=== PATIENT | male | born 1940 | race Caucasian/White ===

== ENCOUNTER 2017-01-12 21:15 | Inpatient (IN) | payer MEDICARE, OTHER ==
[2017-01-12 21:52] LABS: CHLORIDE,CL 101 mmol/L (98-107); SODIUM,NA 138 mmol/L (136-145)
[2017-01-12] MEDS ORDERED: Sodium Chloride 0.9% 1,000 ML IV ONE (21:52)
--- NOTE | 2017-01-12 21:57 | EDM.PDOC ---
ED HPI ALTERED MENTAL STATUS - General Chief Complaint: Neurological Problem Stated Complaint: confusion Time Seen by Provider: 01/12/17 21:50 Source of Information: Reports: Family - History of Present Illness INITIAL COMMENTS - FREE TEXT/NARRATIVE: Patient was out working on a trailer while was in [place]. She returned home this evening but could not find him at house. She called him on cell phone and asked him where he was. He said he was "at home and lost his cell phone". This was despite the fact he answered her using his cell phone. She went out on the property and found him on his knees by the front of a trailer. No ladder. No sign of fall or trauma other than blood noted on right hand. denies patient has had any recent medication changes or illnesses. He does have diagnosis of Alzheimer's but per he is in early stages. He is normally oriented. Tonight he tells me it is 1969. He cannot remember where he is/age/ president/year/month or day. Blood sugar mid-200s on scene per ambulance. Temp was around 94-95 degrees when EMS crew arrived. /EMS crew described patient as sitting on knees on ground. Difficulty ambulating/poorer coordination. Asymmetry in pupils noted but patient has had surgery on right cornea. No focal one-sided weakness noted. No history of stroke per . Unable to perform ROS reliably with patient. - Related Data Allergies/ADRs: Allergies No Known Allergies Allergy (Verified 01/12/17 21:33) Home Meds: Home Meds Clopidogrel [Plavix] 75 mg PO 01/12/17 [History] Ezetimibe [Zetia] 01/12/17 [History] Insulin Glarg,Human.Rec.Analog [Lantus] 15 units SUBCUT BID 01/12/17 [History] Insulin Lispro [HumaLOG] 5 units SUBCUT TID 01/12/17 [History] Lisinopril [Prinivil] 30 mg PO DAILY 01/12/17 [History] Metoprolol Succinate [Toprol XL] 100 mg PO BID 01/12/17 [History] atorvaSTATin Calcium [Atorvastatin Calcium] 80 mg PO BEDTIME 01/12/17 [History] metFORMIN [Glucophage] 1,000 mg PO BIDAC 01/12/17 [History] Past Medical History Cardiovascular History: Reports: Bypass, CAD, High cholesterol, Hypertension, Stents Musculoskeletal History: Reports: Neck pain, chronic (DDD, has pins/rods in neck ), Osteoarthritis Neurological History: Reports: Alzheimers disease Endocrine/Metabolic History: Reports: Diabetes, type II Social & Family History - Family History Family Medical History: Unobtainable ED ROS GENERAL - Review of Systems Review Of Systems: Unable To Obtain (Patient says he "feels fine" and denies pain) - Physical Exam Exam: See Below Text/Narrative:: Rectal temp 99 degrees. Exam Limited By: Altered mental status General Appearance: alert, WD/WN, no apparent distress Eye Exam: bilateral eye: EOMI, other (Right pupil approximately 2-3mm larger in size than left but has history of surgery right eye and is always larger per . No signs of trauma/erythema/swelling/drainage with either eye. ) Ears: normal external exam, normal canal, hearing grossly normal, normal TMs Nose: normal inspection Throat/Mouth: Normal inspection, Normal lips, Normal oropharynx, Normal voice, No airway compromise Head Exam: atraumatic, normocephalic Neck: normal inspection, supple, non-tender, full range of motion Respiratory/Chest: no respiratory distress, lungs clear, normal breath sounds, no accessory muscle use, chest non-tender Cardiovascular: normal peripheral pulses, regular rate, rhythm, no edema, no murmur GI/Abdominal: normal bowel sounds, soft, non tender, no distention (Male) Exam: Other (No acute injuries/changes noted) Rectal (Males) Exam: Deferred Neuro Exam (Abbreviated): alert, normal reflexes, no motor/sensory deficits (no obvious deficits identified), inattentive, confused, memory loss recent events. No: abnormal reflexes DTR: 3+: bicep (R), bicep (L), patella (R), patella (L) Back Exam: normal inspection Extremities: normal range of motion, non-tender, normal capillary refill, other (laceration to 4th/5th fingers right hand) Psychiatric: normal affect, normal mood Skin Exam: Warm, Dry, Wound/incision (see above) EKG INTERPRETATION EKG Date: 01/12/17 Time: 22:02 Rhythm: NSR Rate (beats/min): 74 [place]: normal P-wave: present QRS: normal ST-T: normal QT: normal Comparison: NA - no prior EKG Course - Orders/Labs/Meds Orders: Active Orders 24 hr Category Date Time Status EKG Documentation Completion [RC] ASDIRECTED Care 01/12/17 21:51 Active Fingers Multiple Rt [CR] Stat Exams 01/12/17 23:03 Ordered Head wo Cont [CT] Routine Exams 01/12/17 09:30 Taken INR,PT,PROTHROMBIN TIME [COAG] Stat Lab 01/12/17 21:51 Ordered Insulin Lispro [HumaLOG] Med 01/13/17 22:08 Once 6 unit SUBCUT ONETIME ONE Metoprolol Succinate [Toprol XL] Med 01/12/17 23:04 Once 25 mg PO ONETIME ONE Sodium Chloride 0.9% [Normal Saline] 1,000 ml Med 01/12/17 21:52 Active IV .BOLUS Medication Orders Sodium Chloride (Normal Saline) 1,000 mls @ 50 mls/hr IV .BOLUS ONE Stop: 01/13/17 17:51 Insulin Human Lispro (Humalog) 6 unit SUBCUT ONETIME ONE PRN Reason: Protocol Stop: 01/13/17 22:09 Labs: Laboratory Tests 01/12/17 01/12/17 01/12/17 Range/Units 21:33 21:33 21:33 WBC 7.9 (4.0-10.2) K/uL RBC 4.56 (4.33-5.41) M/uL Hgb 14.1 (13.1-16.8) g/dL Hct 42.0 (39.0-49.0) % MCV 92.1 (84.0-98.0) fL MCH 30.9 (28.2-33.3) pg MCHC 33.6 (31.7-36.0) g/dL RDW 13.7 (11.2-14.1) % Plt Count 208 (150-350) K/uL Neut % (Auto) 83.2 H (45.0-80.0) % Lymph % (Auto) 9.9 L (10.0-50.0) % [place] % (Auto) 6.4 (2.0-14.0) % Eos % (Auto) 0.4 (0.0-5.0) % Baso % (Auto) 0.1 (0.0-2.0) % Neut # (Auto) 6.58 (1.40-7.00) K/uL Lymph # (Auto) 0.78 (0.50-3.50) K/uL [place] # (Auto) 0.51 (0.00-1.00) K/uL Eos # (Auto) 0.03 (0.00-0.50) K/uL Baso # (Auto) 0.01 (0.00-0.20) K/uL PT 11.4 (9.8-11.7) SEC INR 1.1 APTT 25.0 (23.5-30.0) SEC Sodium 138 (136-145) mmol/L Potassium 4.6 (3.5-5.1) mmol/L Chloride 101 (98-107) mmol/L Carbon Dioxide 26.3 (21.0-32.0) mmol/L BUN 20 H (7-18) mg/dL Creatinine 0.78 (0.51-1.17) mg/dL Est Cr Clr Drug Dosing TNP Estimated GFR (MDRD) > 60 mL/min Glucose 307 H* (74-106) mg/dL Calcium 9.2 (8.5-10.1) mg/dL Total Bilirubin 0.6 (0.2-1.0) mg/dL AST 20 (15-37) U/L ALT 30 (12-78) U/L Alkaline Phosphatase 76 (46-116) IU/L Creatine Kinase (26-308) U/L Creatine Kinase Index (0.0-2.5) % CK-MB (CK-2) (0.00-3.60) ng/mL Troponin I (0.000-0.056) ng/mL Total Protein 7.1 (6.4-8.2) g/dL Albumin 3.7 (3.4-5.0) g/dL Specimen Type Urine Color Urine Appearance Urine pH (5.0-9.0) Ur Specific [place] (1.005-1.030) Urine Protein (NEGATIVE) mg/dL Urine Glucose (UA) (NEGATIVE) mg/dL Urine Ketones (NEGATIVE) mg/dL Urine Occult Blood (NEGATIVE) Urine Nitrite (NEGATIVE) Urine Bilirubin (NEGATIVE) Urine Urobilinogen (0.2-1.0) E.U./dL Ur Leukocyte Esterase (NEGATIVE) Urine RBC /HPF Urine WBC /HPF Urine Bacteria (NONE TO FEW) /HPF 03/29/17 03/29/17 Range/Units 21:51 21:51 WBC (4.0-10.2) K/uL RBC (4.33-5.41) M/uL Hgb (13.1-16.8) g/dL Hct (39.0-49.0) % MCV (84.0-98.0) fL MCH (28.2-33.3) pg MCHC (31.7-36.0) g/dL RDW (11.2-14.1) % Plt Count (150-350) K/uL Neut % (Auto) (45.0-80.0) % Lymph % (Auto) (10.0-50.0) % [place] % (Auto) (2.0-14.0) % Eos % (Auto) (0.0-5.0) % Baso % (Auto) (0.0-2.0) % Neut # (Auto) (1.40-7.00) K/uL Lymph # (Auto) (0.50-3.50) K/uL [place] # (Auto) (0.00-1.00) K/uL Eos # (Auto) (0.00-0.50) K/uL Baso # (Auto) (0.00-0.20) K/uL PT (9.8-11.7) SEC INR APTT (23.5-30.0) SEC Sodium (136-145) mmol/L Potassium (3.5-5.1) mmol/L Chloride (98-107) mmol/L Carbon Dioxide (21.0-32.0) mmol/L BUN (7-18) mg/dL Creatinine (0.51-1.17) mg/dL Est Cr Clr Drug Dosing Estimated GFR (MDRD) mL/min Glucose (74-106) mg/dL Calcium (8.5-10.1) mg/dL Total Bilirubin (0.2-1.0) mg/dL AST (15-37) U/L ALT (12-78) U/L Alkaline Phosphatase (46-116) IU/L Creatine Kinase 205 (26-308) U/L Creatine Kinase Index 2.4 (0.0-2.5) % CK-MB (CK-2) 4.90 H* (0.00-3.60) ng/mL Troponin I 0.014 (0.000-0.056) ng/mL Total Protein (6.4-8.2) g/dL Albumin (3.4-5.0) g/dL Specimen Type [place] Urine Color Yellow Urine Appearance Clear Urine pH 5.5 (5.0-9.0) Ur Specific [place] 1.025 (1.005-1.030) Urine Protein 100 H (NEGATIVE) mg/dL Urine Glucose (UA) 500 H (NEGATIVE) mg/dL Urine Ketones 15 H (NEGATIVE) mg/dL Urine Occult Blood Small H (NEGATIVE) Urine Nitrite Negative (NEGATIVE) Urine Bilirubin Negative (NEGATIVE) Urine Urobilinogen 1.0 (0.2-1.0) E.U./dL Ur Leukocyte Esterase Negative (NEGATIVE) Urine RBC 5-10 H /HPF Urine WBC 0-5 /HPF Urine Bacteria Rare (NONE TO FEW) /HPF Meds: Medications Generic Name Dose Route Start Last Admin Trade Name Freq PRN Reason Stop Dose Admin Sodium Chloride 1,000 mls @ 50 mls/hr 01/12/17 21:52 Normal Saline IV 01/13/17 17:51 .BOLUS ONE Insulin Human Lispro 6 unit 01/13/17 22:08 Humalog SUBCUT 01/13/17 22:09 ONETIME ONE Protocol - Radiology Interpretation Free Text/Narrative:: CT of head read as negative per radiology for acute bleed/changes 10:12pm. 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 - Re-Assessments/Exams Free Text/Narrative Re-Assessment/Exam: 01/12/17 23:11 Patient remained confused. Did eventually recognize and remember her name. Discussed patient with , hospitalist, at [facility]. At this time there are no focal neuro changes/one-sided weakness noted, CT of head shows no acute changes. Uncertain what is causing confusion. Given the lacerations of fingers of right hand, other trauma such as concussion may have occurred. No obvious bruising or trauma noted anywhere else however. Patient may also be having acute exacerbation of Alzheimer's. Labs overall unremarkable except for elevated glucose and CKMB. UA normal. Dr. Wallace recommended hospitalizing patient here and observing for changes. 01/12/17 23:19 dressings applied to 4th and 5th fingers. Uncertain how long lacerations present. gone since 6am this morning. Departure - Departure Time of Disposition: 23:18 Disposition: Admitted As Inpatient 65 Clinical Impression: Acute on chronic alteration in mental status, Laceration of right little finger , Laceration of right ring finger Forms: ED Department Discharge - Problem List & Annotations (1) Alzheimer's dementia SNOMED Code(s): 16703609 Code(s): G30.9 - ALZHEIMER'S DISEASE, UNSPECIFIED Status: Chronic Priority: Medium Current Visit: Yes Qualifiers: Alzheimer's disease onset: unspecified onset Dementia behavioral disturbance: without behavioral disturbance Qualified Code(s): G30.9 - Alzheimer's disease, unspecified; F02.80 - Dementia in other diseases classified elsewhere without behavioral disturbance (2) Hypertension SNOMED Code(s): 26323025 Code(s): I10 - ESSENTIAL (PRIMARY) HYPERTENSION Status: Chronic Priority : Medium Current Visit: Yes (3) Type 2 diabetes mellitus SNOMED Code(s): 23295438 Code(s): E11.9 - TYPE 2 DIABETES MELLITUS WITHOUT COMPLICATIONS Status: Chronic Priority: Low Current Visit: Yes (4) High cholesterol SNOMED Code(s): 14525178 Code(s): E78.00 - PURE HYPERCHOLESTEROLEMIA, UNSPECIFIED Status: Acute Current Visit: Yes (5) CAD (coronary artery disease) SNOMED Code(s): 66673456 Code(s): I25.10 - ATHSCL HEART DISEASE OF [place] CORONARY ARTERY W/O ANG PCTRS Status: Chronic Priority: Low Current Visit: No (6) Acute on chronic alteration in mental status SNOMED Code(s): 213717197 Code(s): R41.82 - ALTERED MENTAL STATUS, UNSPECIFIED Status: Acute Priority: High Current Visit: Yes Annotation/Comment:: Uncertain etiology (7) Laceration of right little finger SNOMED Code(s): 283429848, 198535810 Code(s): S61.216A - LAC W/O FB OF R LITTLE FINGER W/O DAMAGE TO NAIL, INIT Status: Acute Priority: Medium Current Visit: Yes (8) Laceration of right ring finger SNOMED Code(s): 860712806 Code(s): S61.214A - LACERATION W/O FB OF R RNG FNGR W/O DAMAGE TO NAIL, INIT Status: Acute Priority: Medium Current Visit: Yes - Problem List Review Problem List Initiated/Reviewed/Updated: Yes - My Orders Last 24 Hours: My Active Orders 01/12/17 09:30 Head wo Cont [CT] Routine 01/12/17 21:51 EKG Documentation Completion [RC] ASDIRECTED INR,PT,PROTHROMBIN TIME [COAG] Stat 01/12/17 21:52 Sodium Chloride 0.9% [Normal Saline] 1,000 ml IV .BOLUS 01/12/17 23:03 Fingers Multiple Rt [CR] Stat 01/12/17 23:04 Metoprolol Succinate [Toprol XL] 25 mg PO ONETIME ONE 01/13/17 22:08 Insulin Lispro [HumaLOG] 6 unit SUBCUT ONETIME ONE - Assessment/Plan Admission H&P: Please use this note as an admission H&P Last 24 Hours: My Active Orders 01/12/17 09:30 Head wo Cont [CT] Routine 01/12/17 21:51 EKG Documentation Completion [RC] ASDIRECTED INR,PT,PROTHROMBIN TIME [COAG] Stat 01/12/17 21:52 Sodium Chloride 0.9% [Normal Saline] 1,000 ml IV .BOLUS 01/12/17 23:03 Fingers Multiple Rt [CR] Stat 01/12/17 23:04 Metoprolol Succinate [Toprol XL] 25 mg PO ONETIME ONE 01/13/17 22:08 Insulin Lispro [HumaLOG] 6 unit SUBCUT ONETIME ONE Assessment:: Acute mental status change today, unknown cause, in patient with history of diagnosis early Alzheimer's. Also lacerations right fingers. Cannot rule out concussion. Plan: Admit, observe, neuro checks.
[2017-01-12] MEDS ORDERED: Metoprolol Succinate 25 MG Tab.ER PO ONE (23:04)
[2017-01-12] MEDS ORDERED: Diphtheria,Pertussis(Acell),Tetanus Vaccine 0.5 ML SDV IM ONE (23:16)
[2017-01-12] MEDS ORDERED: Calcium Carbonate 500 MG Tab.Chew PO PRN (23:39)
[2017-01-12] MEDS ORDERED: Acetaminophen 325 MG Tab PO PRN (23:39)
[2017-01-12] MEDS ORDERED: Magnesium Hydroxide 400 MG/5 ML Susp 30 ML Cup PO PRN (23:39)
[2017-01-13] MEDS: Bacitracin/Neomycin/Polymyxin B Oint 0.9 GM U/D Packet TOP SCH ×2 (00:01→09:46)
[2017-01-13] MEDS: Insulin Aspart 100 Units/ML 3 ML Pen SUBCUT SCH ×5 (00:32→11:56)
[2017-01-13] MEDS ORDERED: Nitroglycerin 0.4 MG Tab.SL SL PRN (08:06)
[2017-01-13] MEDS ORDERED: Aspirin 81 MG Tab.EC PO SCH (08:15)
[2017-01-13] MEDS ORDERED: Lisinopril 10 MG Tab PO SCH (08:15)
[2017-01-13] MEDS ORDERED: Clopidogrel 75 MG Tab PO SCH (08:15)
[2017-01-13] MEDS ORDERED: Multivitamin Tab PO SCH (08:15)
[2017-01-13] MEDS ORDERED: Metoprolol Succinate 50 MG Tab.ER PO SCH (08:15)
[2017-01-13] MEDS ORDERED: Beta-Carotene (Vitamin A) w/Vitamin C & E plus Minerals Tab PO SCH (08:15)
[2017-01-13] MEDS ORDERED: Cholecalciferol (Vitamin D3) 1,000 Unit Tab PO SCH (08:15)
[2017-01-13] MEDS ORDERED: Formoterol/Mometasone 100-5 MCG 8.8 GM Inhaler IH SCH (08:15)
[2017-01-13 09:59] LABS: CHLORIDE,CL 104 mmol/L (98-107); SODIUM,NA 138 mmol/L (136-145)
--- NOTE | 2017-01-13 11:59 | PCM.DCSUM1 ---
Discharge Summary - Hospital Course Free Text/Narrative:: Patient is an extremely poor historian secondary to his Alzheimer's disease and current mental status HPI Initial Comments: See emergency room note/admission H&P Brief History: See the emergency room note/admission H&P - Discharge Data Discharge Date: 01/13/17 Discharge Disposition: DC/Tfer to Acute Hospital 02 Condition: Fair - Discharge Diagnosis/Problem(s) (1) Acute on chronic alteration in mental status SNOMED Code(s): 281352856 ICD Code: R41.82 - ALTERED MENTAL STATUS, UNSPECIFIED Status: Acute Priority: High Current Visit: Yes Problem Details: Uncertain etiology of patient's symptom, however possibility of head concussion and/or acute CVA. Based on review of emergency room note consulting physician did not feel that hospital transfer was warrented yesterday evening. Telephone consultation at 10 :50 a.m. this morning with Dr. Dee, hospitalist at [facility] in [place] , who does accept the patient for further treatment and evaluation, including probable MRA of the brain and cervical region. No further treatment recommendations given. No evidence of meningeal signs with stable moderately severe confusion in neurological checks, although the patient's previous mild to moderate anisocoria has almost completely resolved by my exam today. Review of noncontrast CT scan report of the head from yesterday does reveal apparent previous subacute infarctions. (2) CHF (congestive heart failure) SNOMED Code(s): 63949841 ICD Code: I50.9 - HEART FAILURE, UNSPECIFIED Status: Acute Priority: Medium Current Visit: Yes Onset Date: ~01/13/17 Problem Details: No apparent chest pain or anginal complaints with mildly elevated BNP and mild centralized CHF by today's chest x-ray. IV Lasix given prior to patient's discharge/transfer. Continue close followup by his accepting physicians. Patient is currently a NO CODE. A cardiology consultation and/or further cardiacworkup per accepting physicians. Consider serial cardiac enzymes, etc. Qualifiers: Congestive heart failure type: unspecified congestive heart failure type Congestive heart failure chronicity: acute Qualified Code(s): I50.9 - Heart failure, unspecified (3) CAD (coronary artery disease) SNOMED Code(s): 51391686 ICD Code: I25.10 - ATHSCL HEART DISEASE OF [place] CORONARY ARTERY W/O ANG PCTRS Status: Chronic Priority: High Current Visit: No Problem Details: No apparent recent anginal complaints, although the patient is a poor historian. Note mild CHF today. Mild BNP and d-dimer elevations with secondary troponin I changes with otherwise negative cardiac enzymes and EKG. Note status post CABGand PTCA/stent Qualifiers: Coronary Disease-Associated Artery/Lesion type: bypass graft [place] vs. transplanted heart: [place] heart Associated angina: without angina Qualified Code(s): I25.810 - Atherosclerosis of coronary artery bypass graft(s) without angina pectoris (4) Proteinuria SNOMED Code(s): 05045332 ICD Code: R80.9 - PROTEINURIA, UNSPECIFIED Status: Acute Priority: Medium Current Visit: Yes Onset Date: 01/12/17 Problem Details: Mild hematuria with additional moderate proteinuria possibly secondary to diabetic nephropathy. Urine specimen sent up for culture and sensitivity today. Note mild fever yesterday with no leukocytosis, etc. Possible UTI etiology to some of his confusion Qualifiers: Proteinuria type: unspecified Qualified Code(s): R80.9 - Proteinuria, unspecified (5) COPD (chronic obstructive pulmonary disease) SNOMED Code(s): 55722379 ICD Code: J44.9 - CHRONIC OBSTRUCTIVE PULMONARY DISEASE, UNSPECIFIED Status : Chronic Priority: Medium Current Visit: Yes Onset Date: ~01/13/17 Problem Details: COPD by today's chest x-ray. No apparent recent bronchitic- type symptoms with questionable right perihilar infiltrates today. No previous nebulizer, etc. therapy Qualifiers: COPD type: emphysema (6) High cholesterol SNOMED Code(s): 02541697 ICD Code: E78.00 - PURE HYPERCHOLESTEROLEMIA, UNSPECIFIED Status: Chronic Priority: Medium Current Visit: Yes Problem Details: Currently under therapy with lipid panel normal today (7) Laceration of right little finger SNOMED Code(s): 404032145, 425098930 ICD Code: S61.216A - LAC W/O FB OF R LITTLE FINGER W/O DAMAGE TO NAIL, INIT Status: Acute Priority: Medium Current Visit: Yes Onset Date: 01/12/17 Problem Details: DTaP given in the emergency room. Neosporin dressing (8) Laceration of right ring finger SNOMED Code(s): 940936201 ICD Code: S61.214A - LACERATION W/O FB OF R RNG FNGR W/O DAMAGE TO NAIL, INIT Status: Acute Priority: Medium Current Visit: Yes Onset Date: 01/13 Problem Details: as above (9) Alzheimer's dementia SNOMED Code(s): 92526623 ICD Code: G30.9 - ALZHEIMER'S DISEASE, UNSPECIFIED Status: Chronic Priority: Medium Current Visit: Yes Problem Details: Previously stable by his 's history however note significant decompensation of his mental status as above. TSH and vitamin B 12 levels are normal today Qualifiers: Alzheimer's disease onset: unspecified onset Dementia behavioral disturbance: without behavioral disturbance Qualified Code(s): G30.9 - Alzheimer's disease, unspecified; F02.80 - Dementia in other diseases classified elsewhere without behavioral disturbance (10) Hypertension SNOMED Code(s): 29676489 ICD Code: I10 - ESSENTIAL (PRIMARY) HYPERTENSION Status: Chronic Priority : Medium Current Visit: Yes Problem Details: stable during this hospitalization Qualifiers: Hypertension type: essential hypertension Qualified Code(s): I10 - Essential (primary) hypertension (11) Type 2 diabetes mellitus SNOMED Code(s): 37013006 ICD Code: E11.9 - TYPE 2 DIABETES MELLITUS WITHOUT COMPLICATIONS Status: Chronic Priority: Medium Current Visit: Yes Problem Details: 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 His diabetes his under extremely poor control with Accu-Cheks in effect. Significantly elevated glycosylated hemoglobin today Qualifiers: Diabetes mellitus complication status: with kidney complications Diabetes mellitus complication detail: with microalbuminuria Diabetes mellitus longterm insulin use: with longterm use Qualified Code(s): E11.29 - Type 2 diabetes mellitus with other diabetic kidney complication; R80.9 - Proteinuria, unspecified; Z79.4 - termite treater helper (current) use of insulin (12) Hypoalbuminemia SNOMED Code(s): 528591748 ICD Code: E88.09 - OTH DISORDERS OF PLASMA-PROTEIN METABOLISM, NEC Status: Chronic Priority: Medium Current Visit: Yes Onset Date: ~01/13/17 Problem Details: Consider high-protein Glucerna supplements as snacks - Patient Summary/Data Operative Procedure(s) Performed: none Complications: none Consults: Consultations 01/12/17 23:49 Consult to Occupational Therapy [OT Evaluation and Treatment] [CONS] Routine PT Evaluation and Treatment [CONS] Routine Labs Pending at D/C: none Recommended Follow-up Testing/Procedures: as above Planned Operative Procedure(s) after DC: none Hospital Course: Patient was admitted by [facility] physician to inpatient/acute care for further evaluation of his progressive confusion as above. No apparent chest pain or anginal complaints during this hospitalization. Unsuccessful transfer to [place] yesterday as above. Further evaluation secondary to possibility of acute CVA. Patient stable at time of transfer - Patient Instructions Diet: Diabetic Diet (heart healthy with fluid restriction and diverticulosis diet recommended) Fluid Restriction: 2000 mL Activity: As Tolerated Driving: Do Not Drive Showering/Bathing: No Showering Notify Provider of: Increased Pain, Nausea and/or Vomiting Other/Special Instructions: ambulance transfer with superintendent water and sewer systems accompaniment - Discharge Plan Home Medications: Home Meds Clopidogrel [Plavix] 75 mg PO DAILY 01/12/17 [History] Ezetimibe [Zetia] 10 mg PO BEDTIME 01/12/17 [History] Insulin Glarg,Human.Rec.Analog [Lantus] 15 units SUBCUT BID 01/12/17 [History] Insulin Lispro [HumaLOG] 5 units SUBCUT TID 01/12/17 [History] Lisinopril [Prinivil] 30 mg PO DAILY 01/12/17 [History] Metoprolol Succinate [Toprol XL] 100 mg PO DAILY 01/12/17 [History] atorvaSTATin Calcium [Atorvastatin Calcium] 40 mg PO BEDTIME 01/12/17 [History] metFORMIN [Glucophage] 1,000 mg PO BIDAC 01/12/17 [History] Aspirin [Halfprin] 81 mg PO DAILY 01/13/17 [History] Cholecalciferol (Vitamin D3) [Vitamin D3] 1,000 unit PO DAILY 01/13/17 [History] Lutein/Minerals/Vit A,C & E [Ocuvite] 1 tab PO DAILY 01/13/17 [History] Mometasone/Formoterol [Dulera 100-5 MCG] 2 puff INH BID 01/13/17 [History] Multivitamins [Tab-A-Tamiko] 1 tab PO DAILY 01/13/17 [History] Nitroglycerin [Nitrostat] 0.4 mg SL ASDIRECTED PRN 01/13/17 [History] Ubidecarenone [Co Q-10] 100 mg PO DAILY 01/13/17 [History] Forms: ED Department Discharge, Interfacility Transfer EMTALA Referrals: PCP,Unknown [Primary Care Provider] - - Discharge Summary/Plan Comment DC Time >30 min.: Yes (coordination of care) Discharge Summary/Plan Comment: as above. Some delay inpatient transfer without sequelae secondary to major trauma code in the emergency room. - General Info Admission Dx/Problem (Free Text: Confusion Subjective Update: The patient is an extremely poor historian, however no complaints at this time including pain, chest discomfort, etc. Functional Status: Reports: pain controlled, tolerating diet, ambulating, urinating. Denies: new symptoms Numeric/FACES Score: 0 - Review of Systems General: Reports: Fever (mild yesterday evening) Pulmonary: Reports: no symptoms Cardiovascular: Reports: No Symptoms Gastrointestinal: Reports: No symptoms Genitourinary: Reports: no symptoms Musculoskeletal: Reports: hand pain (secondary to lacerations) Skin: Reports: other (finger lacerations as above) Neurological: Reports: Confusion (persistent as above). Denies: Seizure Psychiatric: Reports: confusion. Denies: agitation, hallucinations - Patient Data Vitals - Most Recent: Last Vital Signs Temp 37.1 C 01/13/17 07:32 Pulse 68 01/13/17 09:47 Resp 16 01/13/17 07:32 BP 157/78 H 01/13/17 09:47 Pulse Ox 98 01/13/17 07:32 Vital Signs - 24 hr 01/12/17 01/13/17 01/13/17 23:41 00:00 00:26 Temperature [ Oral] Temperature [ 37.2 C Rectal] Pulse, 89 Peripheral Pulse, 92 Peripheral [ Right Pulse Oximetry] Respiratory 16 Rate Blood Pressure 174/77 H Blood Pressure 186/79 H [Right Upper Arm] O2 Sat by Pulse 100 100 Oximetry O2 Sat by Pulse 100 Oximetry [ Nasal Cannula] 01/13/17 01/13/17 01/13/17 05:56 07:32 09:47 Temperature [ 37.9 C 37.1 C Oral] Temperature [ Rectal] Pulse, 68 Peripheral Pulse, 68 68 Peripheral [ Right Pulse Oximetry] Respiratory 16 16 Rate Blood Pressure 157/78 H Blood Pressure 183/69 H 157/78 H [Right Upper Arm] O2 Sat by Pulse 100 98 Oximetry O2 Sat by Pulse Oximetry [ Nasal Cannula] 01/13/17 12:00 Temperature [ 36.8 C Oral] Temperature [ Rectal] Pulse, Peripheral Pulse, 64 Peripheral [ Right Pulse Oximetry] Respiratory 16 Rate Blood Pressure Blood Pressure 144/66 H [Right Upper Arm] O2 Sat by Pulse 95 Oximetry O2 Sat by Pulse Oximetry [ Nasal Cannula] Weight - Most Recent: 62.369 kg I&O - Last 24 hours: Intake & Output 01/12/17 01/13/17 01/13/17 22:59 06:59 14:59 Intake Total 285 240 Output Total 100 Balance 185 240 Imaging Impressions - Last 24 hrs: parking lot attendant shows normal sinus rhythm with heart rate in the 70s with no ectopy or arrhythmia Chest x-ray, PA and lateral, this morning showed evidence of moderate COPD changes with mild mostly centralized CHF and additional pulmonary hypertension with possible questionable borderline right perihilar infiltrates. Note status post medial sternotomy. Chest x-ray report from yesterday showed no acute changes CT scan of the head without contrast on 01/12/17 shows cerebral atrophy with remote infarcts in the right cerebellum and posterior right parietal area with no acute findings Lab Results - Last 24 hrs: Laboratory Results - last 24 hr 01/13/17 01/13/17 01/13/17 Range/Units 00:32 07:28 09:10 WBC (4.0-10.2) K/uL RBC (4.33-5.41) M/uL Hgb (13.1-16.8) g/dL Hct (39.0-49.0) % MCV (84.0-98.0) fL MCH (28.2-33.3) pg MCHC (31.7-36.0) g/dL RDW (11.2-14.1) % Plt Count (150-350) K/uL Neut % (Auto) (45.0-80.0) % Lymph % (Auto) (10.0-50.0) % Terrell % (Auto) (2.0-14.0) % Eos % (Auto) (0.0-5.0) % Baso % (Auto) (0.0-2.0) % Neut # (Auto) (1.40-7.00) K/uL Lymph # (Auto) (0.50-3.50) K/uL Terrell # (Auto) (0.00-1.00) K/uL Eos # (Auto) (0.00-0.50) K/uL Baso # (Auto) (0.00-0.20) K/uL D-Dimer, Quantitative (0-400) ng/mL Sodium 138 (136-145) mmol/L Potassium 4.3 (3.5-5.1) mmol/L Chloride 104 (98-107) mmol/L Carbon Dioxide 24.7 (21.0-32.0) mmol/L BUN 16 (7-18) mg/dL Creatinine 0.73 (0.51-1.17) mg/dL Est Cr Clr Drug Dosing 74.76 mL/min Estimated GFR (MDRD) > 60 mL/min Glucose 229 H (74-106) mg/dL POC Glucose 241 H 203 H (65-110) mg/dl Hemoglobin A1c (4.3-5.7) % Calcium 8.4 L (8.5-10.1) mg/dL Total Bilirubin 0.7 (0.2-1.0) mg/dL AST 18 (15-37) U/L ALT 23 (12-78) U/L Alkaline Phosphatase 62 (46-116) IU/L Creatine Kinase 131 (26-308) U/L Creatine Kinase Index 1.6 (0.0-2.5) % CK-MB (CK-2) 2.10 (0.00-3.60) ng/mL Troponin I 0.024 (0.000-0.056) ng/mL Hlf-P-Miitsvynfif Pept 865 H (0-125) pg/mL Total Protein 6.1 L (6.4-8.2) g/dL Albumin 2.9 L (3.4-5.0) g/dL Triglycerides (30-150) mg/dL Cholesterol (100-200) mg/dL LDL Cholesterol, Calc (0-100) mg/dL HDL Cholesterol (40-60) mg/dL Vitamin B12 453 (193-986) pg/mL TSH, Ultra Sensitive 0.422 (0.358-3.740) mIU/mL 01/13/17 01/13/17 01/13/17 Range/Units 09:10 09:10 09:10 WBC 7.7 (4.0-10.2) K/uL RBC 4.18 L (4.33-5.41) M/uL Hgb 12.9 L (13.1-16.8) g/dL Hct 38.5 L (39.0-49.0) % MCV 92.1 (84.0-98.0) fL MCH 30.9 (28.2-33.3) pg MCHC 33.5 (31.7-36.0) g/dL RDW 13.8 (11.2-14.1) % Plt Count 185 (150-350) K/uL Neut % (Auto) 70.9 (45.0-80.0) % Lymph % (Auto) 14.2 (10.0-50.0) % Terrell % (Auto) 14.2 H (2.0-14.0) % Eos % (Auto) 0.4 (0.0-5.0) % Baso % (Auto) 0.3 (0.0-2.0) % Neut # (Auto) 5.49 (1.40-7.00) K/uL Lymph # (Auto) 1.10 (0.50-3.50) K/uL Terrell # (Auto) 1.10 H (0.00-1.00) K/uL Eos # (Auto) 0.03 (0.00-0.50) K/uL Baso # (Auto) 0.02 (0.00-0.20) K/uL D-Dimer, Quantitative 461 H (0-400) ng/mL Sodium (136-145) mmol/L Potassium (3.5-5.1) mmol/L Chloride (98-107) mmol/L Carbon Dioxide (21.0-32.0) mmol/L BUN (7-18) mg/dL Creatinine (0.51-1.17) mg/dL Est Cr Clr Drug Dosing mL/min Estimated GFR (MDRD) mL/min Glucose (74-106) mg/dL POC Glucose (65-110) mg/dl Hemoglobin A1c 11.1 H (4.3-5.7) % Calcium (8.5-10.1) mg/dL Total Bilirubin (0.2-1.0) mg/dL AST (15-37) U/L ALT (12-78) U/L Alkaline Phosphatase (46-116) IU/L Creatine Kinase (26-308) U/L Creatine Kinase Index (0.0-2.5) % CK-MB (CK-2) (0.00-3.60) ng/mL Troponin I (0.000-0.056) ng/mL Nbu-L-Napoddukvvn Pept (0-125) pg/mL Total Protein (6.4-8.2) g/dL Albumin (3.4-5.0) g/dL Triglycerides (30-150) mg/dL Cholesterol (100-200) mg/dL LDL Cholesterol, Calc (0-100) mg/dL HDL Cholesterol (40-60) mg/dL Vitamin B12 (193-986) pg/mL TSH, Ultra Sensitive (0.358-3.740) mIU/mL 01/13/17 01/13/17 Range/Units 09:10 11:23 WBC (4.0-10.2) K/uL RBC (4.33-5.41) M/uL Hgb (13.1-16.8) g/dL Hct (39.0-49.0) % MCV (84.0-98.0) fL MCH (28.2-33.3) pg MCHC (31.7-36.0) g/dL RDW (11.2-14.1) % Plt Count (150-350) K/uL Neut % (Auto) (45.0-80.0) % Lymph % (Auto) (10.0-50.0) % Terrell % (Auto) (2.0-14.0) % Eos % (Auto) (0.0-5.0) % Baso % (Auto) (0.0-2.0) % Neut # (Auto) (1.40-7.00) K/uL Lymph # (Auto) (0.50-3.50) K/uL Terrell # (Auto) (0.00-1.00) K/uL Eos # (Auto) (0.00-0.50) K/uL Baso # (Auto) (0.00-0.20) K/uL D-Dimer, Quantitative (0-400) ng/mL Sodium (136-145) mmol/L Potassium (3.5-5.1) mmol/L Chloride (98-107) mmol/L Carbon Dioxide (21.0-32.0) mmol/L BUN (7-18) mg/dL Creatinine (0.51-1.17) mg/dL Est Cr Clr Drug Dosing mL/min Estimated GFR (MDRD) mL/min Glucose (74-106) mg/dL POC Glucose 248 H (65-110) mg/dl Hemoglobin A1c (4.3-5.7) % Calcium (8.5-10.1) mg/dL Total Bilirubin (0.2-1.0) mg/dL AST (15-37) U/L ALT (12-78) U/L Alkaline Phosphatase (46-116) IU/L Creatine Kinase (26-308) U/L Creatine Kinase Index (0.0-2.5) % CK-MB (CK-2) (0.00-3.60) ng/mL Troponin I (0.000-0.056) ng/mL Oih-H-Dmqaaoviyso Pept (0-125) pg/mL Total Protein (6.4-8.2) g/dL Albumin (3.4-5.0) g/dL Triglycerides 34 (30-150) mg/dL Cholesterol 111 (100-200) mg/dL LDL Cholesterol, Calc 42 (0-100) mg/dL HDL Cholesterol 62 H (40-60) mg/dL Vitamin B12 (193-986) pg/mL TSH, Ultra Sensitive (0.358-3.740) mIU/mL Med Orders - Current: Current Medications Acetaminophen (Tylenol) 650 mg PO Q4H PRN PRN Reason: analgesia/fever Last Admin: 01/13/17 05:26 Dose: 650 mg Aspirin (Halfprin) 81 mg PO DAILY [facility] Last Admin: 01/13/17 09:47 Dose: 81 mg Atorvastatin Calcium (Lipitor) 40 mg PO BEDTIME [facility] Calcium Carbonate/Glycine (Tums) 500 mg PO Q4H PRN PRN Reason: Dyspepsia Cholecalciferol (Vitamin D3) 1,000 units PO DAILY [facility] Last Admin: 01/13/17 09:47 Dose: 1,000 units Clopidogrel Bisulfate (Plavix) 75 mg PO DAILY [facility] Last Admin: 01/13/17 09:47 Dose: 75 mg Coenzyme Q10 (Coenzyme Q10) 100 mg PO DAILY [facility] Last Admin: 01/13/17 09:47 Dose: 100 mg Ezetimibe (Zetia) 10 mg PO BEDTIME [facility] Sodium Chloride (Normal Saline) 1,000 mls @ 50 mls/hr IV .BOLUS ONE Stop: 01/13/17 17:51 Last Admin: 01/12/17 21:38 Dose: 50 mls/hr Insulin Aspart (Novolog) 0 unit SUBCUT ACBED [facility] PRN Reason: Protocol Last Admin: 01/13/17 11:38 Dose: 6 unit Lisinopril (Prinivil) 30 mg PO DAILY [facility] Last Admin: 01/13/17 09:46 Dose: 30 mg Magnesium Hydroxide (Milk Of Magnesia) 30 ml PO BID PRN PRN Reason: Constipation Metformin HCl (Glucophage) 1,000 mg PO BIDAC [facility] Metoprolol Succinate (Toprol Xl) 100 mg PO DAILY [facility] Last Admin: 01/13/17 09:47 Dose: 100 mg Mometasone Furoate/Formoterol Fumar (Dulera 100-5 Mcg) 2 puff IH BID [facility] Last Admin: 01/13/17 11:15 Dose: Not Given Multivitamins/Minerals (Prosight) 1 tab PO DAILY [facility] Last Admin: 01/13/17 09:47 Dose: 1 tab Multivitamins/Minerals/Vitamin C (Tab-A-Tamiko) 1 tab PO DAILY [facility] Last Admin: 01/13/17 09:46 Dose: 1 tab Neomycin/Polymyxin/Bacitracin (Triple Antibiotic Oint) 0 each TOP BID [facility] Last Admin: 01/13/17 09:46 Dose: 1 each Nitroglycerin (Nitrostat) 0.4 mg SL ASDIRECTED PRN PRN Reason: Chest Pain Discontinued Medications Diphtheria/Tetanus/Acell Pertussis (Adacel) 0.5 ml IM .ONCE ONE Stop: 01/12/17 23:17 Last Admin: 01/13/17 00:28 Dose: 0.5 ml Insulin Aspart (Novolog) 0 unit SUBCUT QIDACANDBED [facility] PRN Reason: Protocol Last Admin: 01/13/17 09:45 Dose: 4 units Insulin Human Lispro (Humalog) 6 unit SUBCUT ONETIME ONE PRN Reason: Protocol Stop: 01/13/17 22:09 Metoprolol Succinate (Toprol Xl) 25 mg PO ONETIME ONE Stop: 01/12/17 23:05 Last Admin: 01/13/17 00:26 Dose: 25 mg - Exam Quality Assessment: Reports: DVT prophylaxis. Denies: supplemental oxygen, urine catheter, skin breakdown, restraints General: Reports: alert, cooperative, no acute distress. Denies: oriented ( severe confusion) HEENT: Reports: Pupils reactive, EOMI, Mucous membr. moist/pink, Other ( significantly improved previous moderate anisocoria with right pupil about 5 mm and left pupil about 4 mm in diameter) Neck: Reports: supple, trachea midline, no JVD, no thyromegaly, carotid bruit ( mild bilateral carotid bruits). Denies: lymphadenopathy Lungs: Reports: Clear to auscultation, Normal respiratory effort. Denies: Rub Cardiovascular: Reports: Regular Rate, Regular Rhythm, No Murmurs. Denies: Gallops, Rubs Abdomen: Reports: bowel sounds present, soft, no tenderness, no distension. Denies: guarding, CVA tenderness (Male) Exam: Deferred Rectal (Males) Exam: Deferred Back Exam: Reports: normal inspection, full range of motion. Denies: CVA tenderness (L), CVA tenderness (R), muscle spasm Extremities: Reports: no edema, normal pulses, no calf tenderness, other ( dressings in place on digits #4 and 5 of the right hand) Wound/Incisions: Reports: dressing dry and intact, no drainage Neurological: Reports: no new focal deficit, other (negative Babinski's persistent moderate to severe confusion) Psy/Mental Status: Reports: alert, normal affect, normal mood. Denies: agitated , hallucinations, withdrawal symptoms EKG INTERPRETATION EKG Date: 01/13/17 Time: 09:56 Rhythm: NSR Rate (beats/min): [address] Lane: normal (neutral cardiac axis) P-wave: present QRS: wide (QRS interval of 0.10 seconds representing repolarization changes versus borderline incomplete right bundle branch block with T-wave inversion in lead V1) ST-T: normal QT: normal LA/PQ Interval: 0.16 seconds with extreme poor R-wave progression in the anterior leads Comparison: NA - no prior EKG EKG Interpretation Comments: No acute ischemic changes *Q Meaningful Use (DIS) - VTE *Q VTE Criteria *Q: - Stroke *Q Stroke Criteria *Q: - AMI *Q AMI Criteria *Q:
[2017-01-13 12:20] VITALS: BP 144/66
[2017-01-13] MEDS ORDERED: Furosemide 40 MG/4 ML VIAL IVPUSH ONE (12:20)
[2017-01-13] MEDS ORDERED: metFORMIN 500 MG Tab PO SCH (17:30)
[2017-01-13] MEDS ORDERED: Ezetimibe 10 MG Tab PO SCH (20:00)
[2017-01-13] MEDS ORDERED: atorvaSTATin 40 MG Tab PO SCH (20:00)
[2017-01-13] MEDS ORDERED: Insulin Lispro 100 Unit/ML 3 ML KwikPen SUBCUT ONE (22:08)
== END 2017-01-13 14:23 | DRG 57 ==
LOC: LL.ED 21:15 → LL.MS 22:45 → UNDOADMIN 22:45 → LL.MS 23:43 → UNDODISIN 01-13 14:23
PROVIDERS: ADMIT Emergency Medicine; ATTEND Family Medicine
DX: G30.9 Alzheimer's disease, unspecified (principal); F02.80 Dementia in other diseases classified elsewhere, unspecified severity, without behavioral disturbance, psychotic disturbance, mood disturbance, and anxiety; I50.9 Heart failure, unspecified; I11.0 Hypertensive heart disease with heart failure; I25.10 Atherosclerotic heart disease of native coronary artery without angina pectoris; R80.9 Proteinuria, unspecified; J44.9 Chronic obstructive pulmonary disease, unspecified; E78.00 Pure hypercholesterolemia, unspecified; S61.216A Laceration without foreign body of right little finger without damage to nail, initial encounter; S61.214A Laceration without foreign body of right ring finger without damage to nail, initial encounter; E11.29 Type 2 diabetes mellitus with other diabetic kidney complication; Z79.4 Long term (current) use of insulin; Z95.1 Presence of aortocoronary bypass graft; Z95.5 Presence of coronary angioplasty implant and graft
CPT/HCPCS: 36415; 70450; 80053; 81001; 82550; 82553; 84484; 85025; 85610; 85730; 87086; 93005; 96360; 99291; J7030; 71020; 73140-RT; 80061; 82607; 82962; 83036; 83880; 84443; 85379; 90715; A9270-GY; J1815; J1815-GY; J1940

== ENCOUNTER 2018-04-06 22:18 | Inpatient (IN) | payer MEDICARE, OTHER ==
--- NOTE | 2018-04-06 23:18 | EDM.PDOC ---
ED HPI GENERAL MEDICAL PROBLEM - General Chief Complaint: General Stated Complaint: LETHARGY, elevated BS Time Seen by Provider: 04/06/18 22:30 Source of Information: Reports: Patient, Family History Limitations: Reports: No Limitations - History of Present Illness INITIAL COMMENTS - FREE TEXT/NARRATIVE: Patient is a 78-year-old who is seen with chief complaint of generalized weakness and elevated blood sugars. He reports feeling tired and sleepy throughout the day and it has been going on for 2 or 3 days. His noticed blood sugar today to be 545 dL. Patient was brought in for evaluation and treatment Onset: Gradual Duration: Day(s):, Getting Worse Improves with: Reports: None Worsens with: Reports: Medication Context: Reports: Other (Hyperglycemia) Associated Symptoms: Reports: No Other Symptoms - Related Data Allergies Allergy/AdvReac Type Severity Reaction Status Date / Time No Known Allergies Allergy Verified 04/06/18 22:30 Home Meds: Home Meds Ezetimibe [Zetia] 10 mg PO BEDTIME 01/12/17 [History] Insulin Glarg,Human.Rec.Analog [Lantus] 20 units SUBCUT BID 01/12/17 [History] Insulin Lispro [HumaLOG] 20 units SUBCUT TIDMEALS 01/12/17 [History] Metoprolol Succinate [Toprol XL] 100 mg PO DAILY 01/12/17 [History] atorvaSTATin Calcium [Atorvastatin Calcium] 40 mg PO BEDTIME 01/12/17 [History] metFORMIN [Glucophage] 1,000 mg PO BIDAC 01/12/17 [History] Aspirin [Halfprin] 81 mg PO DAILY 01/13/17 [History] Cholecalciferol (Vitamin D3) [Vitamin D3] 1,000 unit PO DAILY 01/13/17 [History] Lutein/Minerals/Vit A,C & E [Ocuvite] 1 tab PO DAILY 01/13/17 [History] Multivitamins [Tab-A-Tamiko] 1 tab PO DAILY 01/13/17 [History] Nitroglycerin [Nitrostat] 0.4 mg SL ASDIRECTED PRN 01/13/17 [History] Ubidecarenone [Co Q-10] 100 mg PO DAILY 01/13/17 [History] Diazepam [Valium] 2.5 mg PO DAILY 04/06/18 [History] Hydrochlorothiazide 12.5 mg PO DAILY 04/06/18 [History] Insulin Degludec [Tresiba Flextouch U-100] 100 unit SQ ASDIRECTED 04/06/18 [ History] Ipratropium [Atrovent 0.06% Nasal [place]] 2 sprays NASBOTH BID 04/06/18 [History] Losartan Potassium 50 mg PO DAILY 04/06/18 [History] Mometasone/Formoterol [Dulera 200 Mcg/5 Mcg Inhaler] 1 inhalation IH BID [History] Warfarin [Coumadin] 2.5 mg PO SUTUWETHFRSA 04/06/18 [History] Warfarin [Coumadin] 5 mg PO MO 04/06/18 [History] Past Medical History HEENT History: Reports: Impaired Vision Cardiovascular History: Reports: Bypass, CAD, High Cholesterol, Hypertension, Stents Musculoskeletal History: Reports: Neck Pain, Chronic, Osteoarthritis Neurological History: Reports: Alzheimers Disease, Other (See Below) Other Neuro History: states pt. was diagnosed with "early alzheimers" but medications has not been started yet. Endocrine/Metabolic History: Reports: Diabetes, Type II - Past Surgical History HEENT Surgical History: Reports: Eye Surgery Musculoskeletal Surgical History: Reports: Other (See Below) Social & Family History - Family History Family Medical History: Unobtainable ED ROS GENERAL - Review of Systems Review Of Systems: See Below Constitutional: Reports: Weakness, Fatigue HEENT: Reports: Other (Cataracts) Respiratory: Reports: No Symptoms Cardiovascular: Reports: No Symptoms, Other (History of stroke and A. fib on Coumadin) Endocrine: Reports: High Glucose, Polyuria (The last few days) GI/Abdominal: Reports: No Symptoms : Reports: No Symptoms Musculoskeletal: Reports: Back Pain, Joint Pain (Right hip) Skin: Reports: No Symptoms Neurological: Reports: No Symptoms Psychiatric: Reports: No Symptoms ED EXAM, GENERAL - Physical Exam Exam: See Below Exam Limited By: No Limitations General Appearance: Alert, WD/WN, No Apparent Distress, Lethargic Ears: Normal External Exam, Normal Canal, Hearing Grossly Normal, Normal TMs Nose: Normal Inspection, Normal Mucosa, No Blood Throat/Mouth: Normal Inspection, Normal Lips, Normal Teeth, Normal Gums, Normal Oropharynx, Normal Voice, No Airway Compromise Head: Atraumatic, Normocephalic Neck: Normal Inspection, Supple, Non-Tender, Full Range of Motion Respiratory/Chest: No Respiratory Distress, Lungs Clear, Normal Breath Sounds, No Accessory Muscle Use, Chest Non-Tender Cardiovascular: Normal Peripheral Pulses, Regular Rate, Rhythm, No Edema, No Murmur GI/Abdominal: Normal Bowel Sounds, Soft, Non-Tender, No Organomegaly, No Distention, No Abnormal Bruit, No Mass (Male) Exam: Deferred Rectal (Males) Exam: Deferred Back Exam: Decreased Range of Motion, Vertebral Tenderness Extremities: Normal Inspection, Normal Range of Motion, Non-Tender, Normal Capillary Refill, No Pedal Edema Neurological: Alert, Oriented, CN II-XII Intact, Normal Cognition, Normal Gait, Normal Reflexes, No Motor/Sensory Deficits Psychiatric: Normal Affect, Normal Mood Skin Exam: Warm, Dry, Intact, Normal Color, No Rash Lymphatic: No Adenopathy Course - Vital Signs Last Recorded V/S: Last Vital Signs Temp 97.6 F 04/07/18 07:34 Pulse 68 04/07/18 10:47 Resp 16 04/07/18 07:34 BP 122/66 04/07/18 10:47 Pulse Ox 97 04/07/18 07:34 - Orders/Labs/Meds Orders: Active Orders 24 hr Category Date Time Status Patient Status [ADT] Routine ADT 04/07/18 00:10 Active Ambulate [RC] ASDIRECTED Care 04/07/18 00:09 Active Bedrest Bathroom Privileges [RC] ASDIRECTED Care 04/07/18 00:09 Active Blood Glucose Check, Bedside [RC] QIDACANDBED Care 04/07/18 00:09 Active Cardiac Monitoring [RC] Q2HR Care 04/07/18 00:13 Active Diabetes Education [RC] DAILY Care 04/07/18 00:18 Active EKG Documentation Completion [RC] ASDIRECTED Care 04/07/18 00:22 Active Height and Weight [RC] 06 Care 04/07/18 00:09 Active Intake and Output [RC] ,, Care 04/07/18 00:13 Active May Shower [] ASDIRECTED Care 04/07/18 00:09 Active Oxygen Therapy [] PRN Care 04/07/18 00:10 Active Up With Assistance [] ASDIRECTED Care 04/07/18 00:09 Active Up to Chair [RC] ASDIRECTED Care 04/07/18 00:09 Active VTE/DVT Education [RC] PER UNIT ROUTINE Care 04/07/18 00:10 Active Vital Signs [RC] Q4HR Care 04/07/18 00:10 Active [place] [employer] Diet [DIET] Diet 04/07/18 Breakfast Active UA W/MICROSCOPIC [URIN] Stat Lab 04/06/18 23:30 Ordered Aspirin [Halfprin] Med 04/07/18 08:00 Active 81 mg PO DAILY Cholecalciferol (Vitamin D3) [Vitamin D3] Med 04/07/18 08:00 Active 1,000 units PO DAILY Ezetimibe [Zetia] Med 04/07/18 20:00 Active 10 mg PO BEDTIME Furosemide [Lasix] Med 04/07/18 08:00 Active 40 mg IVPUSH DAILY Insulin Aspart [NovoLOG] Med 04/07/18 08:00 Active 20 unit SUBCUT TIDMEALS Insulin Detemir [Levemir] Med 04/07/18 08:00 Active 20 unit SUBCUT BID Ipratropium [Atrovent 0.06% Nasal [place]] Med 04/07/18 08:00 Active 2 sprays NASBOTH BID Losartan [Cozaar] Med 04/07/18 08:00 Active 50 mg PO DAILY Lutein/Min/Vit C/Vit E Acetate [Ocuvite Lutein] Med 04/07/18 08:00 Active 1 each PO DAILY Mometasone/Formoterol [Dulera 200-5 MCG] Med 04/07/18 08:00 Active 1 puff IH BID Multivitamins [Tab-A-Tamiko] Med 04/07/18 08:00 Active 1 tab PO DAILY Nitroglycerin [Nitrostat] Med 04/07/18 00:23 Active 0.4 mg SL ASDIRECTED PRN Sodium Chloride 0.9% [Normal Saline] 1,000 ml Med 04/07/18 00:00 Active IV ASDIRECTED Sodium Chloride 0.9% [Saline Flush] Med 04/06/18 23:59 Active 10 ml FLUSH ASDIRECTED PRN Ubidecarenone [Coenzyme Q10] Med 04/07/18 08:00 Active 100 mg PO DAILY metFORMIN [Glucophage] Med 04/07/18 07:30 Active 1,000 mg PO BIDAC Anticoagulation Contraindications VTE [AST] Per Unit Oth 04/07/18 00:09 Ordered Routine Glucose Management Sub Q Reflex [OM.PC] Click To Edit Ot 04/07/18 00:09 Active Saline Lock Insert [OM.PC] Stat Ot 04/06/18 23:59 Ordered Resuscitation Status Routine Resus Stat 04/07/18 00:09 Ordered Medication Orders Aspirin (Halfprin) 81 mg PO DAILY [facility] Last Admin: 04/07/18 07:46 Dose: 81 mg Atorvastatin Calcium (Lipitor) 40 mg PO BEDTIME PRINCESS Cholecalciferol (Vitamin D3) 1,000 units PO DAILY [facility] Last Admin: 04/07/18 07:46 Dose: 1,000 units Coenzyme Q10 (Coenzyme Q10) 100 mg PO DAILY [facility] Last Admin: 04/07/18 07:46 Dose: 100 mg Ezetimibe (Zetia) 10 mg PO BEDTIME PRINCESS Furosemide (Lasix) 40 mg IVPUSH DAILY [facility] Last Admin: 04/07/18 07:47 Dose: 40 mg Sodium Chloride (Normal Saline) 1,000 mls @ 150 mls/hr IV ASDIRECTED [facility] Last Admin: 04/07/18 06:35 Dose: 150 mls/hr Infusion: 04/07/18 06:35 Dose: 150 mls/hr Admin: 04/07/18 00:11 Dose: 150 mls/hr Insulin Aspart (Novolog) 20 unit SUBCUT TIDMEALS [facility] Last Admin: 04/07/18 09:44 Dose: Insulin Detemir (Levemir) 20 unit SUBCUT BID [facility] Last Admin: 04/07/18 10:40 Dose: 20 unit Losartan Potassium (Cozaar) 50 mg PO DAILY [facility] Last Admin: 04/07/18 07:47 Dose: 50 mg Metformin HCl (Glucophage) 1,000 mg PO BIDAC [facility] Last Admin: 04/07/18 07:46 Dose: 1,000 mg Metoprolol Succinate (Toprol Xl) 100 mg PO DAILY [facility] Last Admin: 04/07/18 10:47 Dose: 100 mg Mometasone Furoate/Formoterol Fumar (Dulera 200-5 Mcg) 1 puff IH BID [facility] Last Admin: 04/07/18 07:47 Dose: 1 puff Multivitamins/Minerals/Vitamin C (Tab-A-Tamiko) 1 tab PO DAILY [facility] Last Admin: 04/07/18 07:46 Dose: 1 tab Nitroglycerin (Nitrostat) 0.4 mg SL ASDIRECTED PRN PRN Reason: Chest Pain Non-Formulary Medication (Ipratropium [Atrovent 0.06% Nasal [place]]) 2 sprays NASBOTH BID [facility] Last Admin: 04/07/18 10:49 Dose: Sodium Chloride (Saline Flush) 10 ml FLUSH ASDIRECTED PRN PRN Reason: Keep Vein Open Last Admin: 04/07/18 07:48 Dose: 10 ml Vit C/Vit E/Zinc/Copper/Lutein (Ocuvite Lutein) 1 each PO DAILY [facility] Last Admin: 04/07/18 07:46 Dose: 1 each Warfarin Sodium (Coumadin) 2.5 mg PO SuTuWeThFrSa@1800 [facility] Warfarin Sodium (Coumadin) 5 mg PO Mo@1800 [facility] Labs: Laboratory Tests 04/06/18 04/06/18 04/06/18 Range/Units 23:30 23:30 23:30 WBC 9.2 (4.0-10.2) K/uL RBC 4.63 (4.33-5.41) M/uL Hgb 14.6 D (13.1-16.8) g/dL Hct 42.3 (39.0-49.0) % MCV 91.4 (84.0-98.0) fL MCH 31.5 (28.2-33.3) pg MCHC 34.5 (31.7-36.0) g/dL RDW 12.8 (11.2-14.1) % Plt Count 242 (150-350) K/uL Neut % (Auto) 66.7 (45.0-80.0) % Lymph % (Auto) 21.0 (10.0-50.0) % [place] % (Auto) 11.0 (2.0-14.0) % Eos % (Auto) 1.1 (0.0-5.0) % Baso % (Auto) 0.2 (0.0-2.0) % Neut # (Auto) 6.16 (1.40-7.00) K/uL Lymph # (Auto) 1.94 (0.50-3.50) K/uL [place] # (Auto) 1.02 H (0.00-1.00) K/uL Eos # (Auto) 0.10 (0.00-0.50) K/uL Baso # (Auto) 0.02 (0.00-0.20) K/uL PT (9.8-11.7) SEC INR Sodium 125 L D (136-145) mmol/L Potassium 4.5 (3.5-5.1) mmol/L Chloride 88 L D (98-107) mmol/L Carbon Dioxide 32.0 (21.0-32.0) mmol/L BUN 24 H (7-18) mg/dL Creatinine 0.98 (0.51-1.17) mg/dL Est Cr Clr Drug Dosing 52.15 mL/min Estimated GFR (MDRD) > 60 mL/min Glucose 597 H* (74-106) mg/dL Hemoglobin A1c (4.3-5.7) % Lactic Acid (0.4-2.0) mmol/L Calcium 9.6 (8.5-10.1) mg/dL Total Bilirubin 0.5 (0.2-1.0) mg/dL AST 21 (15-37) U/L ALT 55 (12-78) U/L Alkaline Phosphatase 105 (46-116) IU/L Total Protein 7.6 (6.4-8.2) g/dL Albumin 3.6 (3.4-5.0) g/dL Specimen Type Urinvoid Urine Color Yellow Urine Appearance Clear Urine pH 7.0 (5.0-9.0) Ur Specific [place] 1.010 (1.005-1.030) Urine Protein Negative (NEGATIVE) mg/dL Urine Glucose (UA) 500 H (NEGATIVE) mg/dL Urine Ketones Negative (NEGATIVE) mg/dL Urine Occult Blood Negative (NEGATIVE) Urine Nitrite Negative (NEGATIVE) Urine Bilirubin Negative (NEGATIVE) Urine Urobilinogen 0.2 (0.2-1.0) E.U./dL Ur Leukocyte Esterase Negative (NEGATIVE) Urine RBC 0-5 /HPF Urine WBC Not seen /HPF Ur Epithelial Cells Not seen /LPF Urine Bacteria Not seen (NONE TO FEW) /HPF Ketones 04/06/18 04/06/18 04/07/18 Range/Units 23:30 23:30 00:01 WBC (4.0-10.2) K/uL RBC (4.33-5.41) M/uL Hgb (13.1-16.8) g/dL Hct (39.0-49.0) % MCV (84.0-98.0) fL MCH (28.2-33.3) pg MCHC (31.7-36.0) g/dL RDW (11.2-14.1) % Plt Count (150-350) K/uL Neut % (Auto) (45.0-80.0) % Lymph % (Auto) (10.0-50.0) % [place] % (Auto) (2.0-14.0) % Eos % (Auto) (0.0-5.0) % Baso % (Auto) (0.0-2.0) % Neut # (Auto) (1.40-7.00) K/uL Lymph # (Auto) (0.50-3.50) K/uL [place] # (Auto) (0.00-1.00) K/uL Eos # (Auto) (0.00-0.50) K/uL Baso # (Auto) (0.00-0.20) K/uL PT 20.6 H D (9.8-11.7) SEC INR 1.9 Sodium (136-145) mmol/L Potassium (3.5-5.1) mmol/L Chloride (98-107) mmol/L Carbon Dioxide (21.0-32.0) mmol/L BUN (7-18) mg/dL Creatinine (0.51-1.17) mg/dL Est Cr Clr Drug Dosing mL/min Estimated GFR (MDRD) mL/min Glucose (74-106) mg/dL Hemoglobin A1c > 14.0 H (4.3-5.7) % Lactic Acid 1.8 (0.4-2.0) mmol/L Calcium (8.5-10.1) mg/dL Total Bilirubin (0.2-1.0) mg/dL AST (15-37) U/L ALT (12-78) U/L Alkaline Phosphatase (46-116) IU/L Total Protein (6.4-8.2) g/dL Albumin (3.4-5.0) g/dL Specimen Type Urine Color Urine Appearance Urine pH (5.0-9.0) Ur Specific [place] (1.005-1.030) Urine Protein (NEGATIVE) mg/dL Urine Glucose (UA) (NEGATIVE) mg/dL Urine Ketones (NEGATIVE) mg/dL Urine Occult Blood (NEGATIVE) Urine Nitrite (NEGATIVE) Urine Bilirubin (NEGATIVE) Urine Urobilinogen (0.2-1.0) E.U./dL Ur Leukocyte Esterase (NEGATIVE) Urine RBC /HPF Urine WBC /HPF Ur Epithelial Cells /LPF Urine Bacteria (NONE TO FEW) /HPF Ketones 04/07/18 Range/Units 00:01 WBC (4.0-10.2) K/uL RBC (4.33-5.41) M/uL Hgb (13.1-16.8) g/dL Hct (39.0-49.0) % MCV (84.0-98.0) fL MCH (28.2-33.3) pg MCHC (31.7-36.0) g/dL RDW (11.2-14.1) % Plt Count (150-350) K/uL Neut % (Auto) (45.0-80.0) % Lymph % (Auto) (10.0-50.0) % [place] % (Auto) (2.0-14.0) % Eos % (Auto) (0.0-5.0) % Baso % (Auto) (0.0-2.0) % Neut # (Auto) (1.40-7.00) K/uL Lymph # (Auto) (0.50-3.50) K/uL [place] # (Auto) (0.00-1.00) K/uL Eos # (Auto) (0.00-0.50) K/uL Baso # (Auto) (0.00-0.20) K/uL PT (9.8-11.7) SEC INR Sodium (136-145) mmol/L Potassium (3.5-5.1) mmol/L Chloride (98-107) mmol/L Carbon Dioxide (21.0-32.0) mmol/L BUN (7-18) mg/dL Creatinine (0.51-1.17) mg/dL Est Cr Clr Drug Dosing mL/min Estimated GFR (MDRD) mL/min Glucose (74-106) mg/dL Hemoglobin A1c (4.3-5.7) % Lactic Acid (0.4-2.0) mmol/L Calcium (8.5-10.1) mg/dL Total Bilirubin (0.2-1.0) mg/dL AST (15-37) U/L ALT (12-78) U/L Alkaline Phosphatase (46-116) IU/L Total Protein (6.4-8.2) g/dL Albumin (3.4-5.0) g/dL Specimen Type Urine Color Urine Appearance Urine pH (5.0-9.0) Ur Specific [place] (1.005-1.030) Urine Protein (NEGATIVE) mg/dL Urine Glucose (UA) (NEGATIVE) mg/dL Urine Ketones (NEGATIVE) mg/dL Urine Occult Blood (NEGATIVE) Urine Nitrite (NEGATIVE) Urine Bilirubin (NEGATIVE) Urine Urobilinogen (0.2-1.0) E.U./dL Ur Leukocyte Esterase (NEGATIVE) Urine RBC /HPF Urine WBC /HPF Ur Epithelial Cells /LPF Urine Bacteria (NONE TO FEW) /HPF Ketones Negative Meds: Medications Generic Name Dose Route Start Last Admin Trade Name Darian PRN Reason Stop Dose Admin Aspirin 81 mg 04/07/18 08:00 04/07/18 07:46 Halfprin PO 81 mg DAILY PRINCESS Administration Atorvastatin Calcium 40 mg 04/07/18 20:00 Lipitor PO BEDTIME PRINCESS Cholecalciferol 1,000 units 04/07/18 08:00 04/07/18 07:46 Vitamin D3 PO 1,000 units DAILY PRINCESS Administration Coenzyme Q10 100 mg 04/07/18 08:00 04/07/18 07:46 Coenzyme Q10 PO 100 mg DAILY PRINCESS Administration Ezetimibe 10 mg 04/07/18 20:00 Zetia PO BEDTIME PRINCESS Furosemide 40 mg 04/07/18 08:00 04/07/18 07:47 Lasix IVPUSH 40 mg DAILY PRINCESS Administration Sodium Chloride 1,000 mls @ 150 mls/hr 04/07/18 00:00 04/07/18 06:35 Normal Saline IV 150 mls/hr ASDIRECTED PRINCESS Administration Insulin Aspart 20 unit 04/07/18 08:00 04/07/18 09:44 Novolog SUBCUT Not Given TIDMEALS [facility] Insulin Detemir 20 unit 04/07/18 08:00 04/07/18 10:40 Levemir SUBCUT 20 unit BID PRINCESS Administration Losartan Potassium 50 mg 04/07/18 08:00 04/07/18 07:47 Cozaar PO 50 mg DAILY PRINCESS Administration Metformin HCl 1,000 mg 04/07/18 07:30 04/07/18 07:46 Glucophage PO 1,000 mg BIDAC PRINCESS Administration Metoprolol Succinate 100 mg 04/07/18 08:00 04/07/18 10:47 Toprol Xl PO 100 mg DAILY PRINCESS Administration Mometasone Furoate/Formoterol Fumar 1 puff 04/07/18 08:00 04/07/18 07:47 Dulera 200-5 Mcg IH 1 puff BID PRINCESS Administration Multivitamins/Minerals/Vitamin C 1 tab 04/07/18 08:00 04/07/18 07:46 Tab-A-Tamiko PO 1 tab DAILY [facility] Administration Nitroglycerin 0.4 mg 04/07/18 00:23 Nitrostat SL ASDIRECTED PRN Chest Pain Non-Formulary Medication 2 sprays 04/07/18 08:00 04/07/18 10:49 Ipratropium [Atrovent 0.06% Nasal [place]] NASBOTH Not Given BID [facility] Sodium Chloride 10 ml 04/06/18 23:59 04/07/18 07:48 Saline Flush FLUSH 10 ml ASDIRECTED PRN Administration Keep Vein Open Vit C/Vit E/Zinc/Copper/Lutein 1 each 04/07/18 08:00 04/07/18 07:46 Ocuvite Lutein PO 1 each DAILY [facility] Administration Warfarin Sodium 2.5 mg 04/07/18 18:00 Coumadin PO SuTuWeThFrSa@1800 [facility] Warfarin Sodium 5 mg 04/10/18 18:00 Coumadin PO Mo@1800 [facility] Discontinued Medications Generic Name Dose Route Start Last Admin Trade Name Freq PRN Reason Stop Dose Admin Insulin Aspart 20 unit 04/06/18 23:55 04/07/18 00:04 Novolog SUBCUT 04/06/18 23:56 20 units ONETIME ONE Administration Non-Formulary Medication 40 mg 04/07/18 20:00 Atorvastatin Calcium [Atorvastatin Calcium] PO BEDTIME PRINCESS Non-Formulary Medication 100 mg 04/07/18 08:00 04/07/18 10:49 Metoprolol Succinate [Toprol Xl] PO Not Given DAILY [facility] Warfarin Sodium 2.5 mg 04/07/18 00:30 04/07/18 03:10 Coumadin PO Not Given SUTUWETHFRSA [facility] Warfarin Sodium 5 mg 04/10/18 00:23 Coumadin PO MO PRINCESS Departure - Departure Time of Disposition: 00:15 Disposition: Admitted As Inpatient 65 Clinical Impression: Hyperglycemia - Discharge Information - Problem List & Annotations (1) Hyperglycemia SNOMED Code(s): 56472297 Code(s): R73.9 - HYPERGLYCEMIA, UNSPECIFIED Status: Acute Current Visit: Yes (2) Glucose found in urine on examination SNOMED Code(s): 26108093 Code(s): R81 - GLYCOSURIA Status: Acute Current Visit: Yes Annotation/ Comment:: urine analysis showed high amount of glucose in urine in ER (3) Hemoglobin A1C greater than 9%, indicating poor diabetic control SNOMED Code(s): 801424955, 535962590, 619467333 Code(s): R73.09 - OTHER ABNORMAL GLUCOSE Status: Acute Current Visit: Yes Annotation/Comment:: Result is greater than 14 - Problem List Review Problem List Initiated/Reviewed/Updated: Yes - My Orders Last 24 Hours: My Active Orders 04/06/18 23:30 UA W/MICROSCOPIC [URIN] Stat 04/06/18 23:59 Sodium Chloride 0.9% [Saline Flush] 10 ml FLUSH ASDIRECTED PRN Saline Lock Insert [OM.PC] Stat 04/07/18 00:00 Sodium Chloride 0.9% [Normal Saline] 1,000 ml IV ASDIRECTED 04/07/18 00:09 Ambulate [RC] ASDIRECTED Bedrest Bathroom Privileges [RC] ASDIRECTED Blood Glucose Check, Bedside [RC] QIDACANDBED Height and Weight [RC] 19 February Shower [RC] ASDIRECTED Up With Assistance [RC] ASDIRECTED Up to Chair [RC] ASDIRECTED Anticoagulation Contraindications VTE [AST] Per Unit Routine Glucose Management Sub Q Reflex [OM.PC] Click To Edit Resuscitation Status Routine 04/07/18 00:10 Patient Status [ADT] Routine Oxygen Therapy [RC] PRN VTE/DVT Education [RC] PER UNIT ROUTINE Vital Signs [RC] Q4HR 04/07/18 00:13 Cardiac Monitoring [RC] Q2HR Intake and Output [RC] ,,04/07/18 00:18 Diabetes Education [RC] DAILY 04/07/18 00:22 EKG Documentation Completion [RC] ASDIRECTED 04/07/18 00:23 Nitroglycerin [Nitrostat] 0.4 mg SL ASDIRECTED PRN 04/07/18 07:30 metFORMIN [Glucophage] 1,000 mg PO BIDAC 04/07/18 08:00 Aspirin [Halfprin] 81 mg PO DAILY Cholecalciferol (Vitamin D3) [Vitamin D3] 1,000 units PO DAILY Furosemide [Lasix] 40 mg IVPUSH DAILY Insulin Aspart [NovoLOG] 20 unit SUBCUT TIDMEALS Insulin Detemir [Levemir] 20 unit SUBCUT BID Ipratropium [Atrovent 0.06% Nasal [place]] 2 sprays NASBOTH BID Losartan [Cozaar] 50 mg PO DAILY Lutein/Min/Vit C/Vit E Acetate [Ocuvite Lutein] 1 each PO DAILY Mometasone/Formoterol [Dulera 200-5 MCG] 1 puff IH BID Multivitamins [Tab-A-Tamiko] 1 tab PO DAILY Ubidecarenone [Coenzyme Q10] 100 mg PO DAILY 04/07/18 20:00 Ezetimibe [Zetia] 10 mg PO BEDTIME 04/07/18 Breakfast [place] [employer] Diet [DIET] - Assessment/Plan Admission H&P: Please use this note as an admission H&P Last 24 Hours: My Active Orders 04/06/18 23:30 UA W/MICROSCOPIC [URIN] Stat 04/06/18 23:59 Sodium Chloride 0.9% [Saline Flush] 10 ml FLUSH ASDIRECTED PRN Saline Lock Insert [OM.PC] Stat 04/07/18 00:00 Sodium Chloride 0.9% [Normal Saline] 1,000 ml IV ASDIRECTED 04/07/18 00:09 Ambulate [RC] ASDIRECTED Bedrest Bathroom Privileges [RC] ASDIRECTED Blood Glucose Check, Bedside [RC] QIDACANDBED Height and Weight [RC] 19 February Shower [RC] ASDIRECTED Up With Assistance [RC] ASDIRECTED Up to Chair [RC] ASDIRECTED Anticoagulation Contraindications VTE [AST] Per Unit Routine Glucose Management Sub Q Reflex [OM.PC] Click To Edit Resuscitation Status Routine 04/07/18 00:10 Patient Status [ADT] Routine Oxygen Therapy [RC] PRN VTE/DVT Education [RC] PER UNIT ROUTINE Vital Signs [RC] Q4HR 04/07/18 00:13 Cardiac Monitoring [RC] Q2HR Intake and Output [RC] 06,14,22 04/07/18 00:18 Diabetes Education [RC] DAILY 04/07/18 00:22 EKG Documentation Completion [RC] ASDIRECTED 04/07/18 00:23 Nitroglycerin [Nitrostat] 0.4 mg SL ASDIRECTED PRN 04/07/18 07:30 metFORMIN [Glucophage] 1,000 mg PO BIDAC 04/07/18 08:00 Aspirin [Halfprin] 81 mg PO DAILY Cholecalciferol (Vitamin D3) [Vitamin D3] 1,000 units PO DAILY Furosemide [Lasix] 40 mg IVPUSH DAILY Insulin Aspart [NovoLOG] 20 unit SUBCUT TIDMEALS Insulin Detemir [Levemir] 20 unit SUBCUT BID Ipratropium [Atrovent 0.06% Nasal [place]] 2 sprays NASBOTH BID Losartan [Cozaar] 50 mg PO DAILY Lutein/Min/Vit C/Vit E Acetate [Ocuvite Lutein] 1 each PO DAILY Mometasone/Formoterol [Dulera 200-5 MCG] 1 puff IH BID Multivitamins [Tab-A-Tamiko] 1 tab PO DAILY Ubidecarenone [Coenzyme Q10] 100 mg PO DAILY 04/07/18 20:00 Ezetimibe [Zetia] 10 mg PO BEDTIME 04/07/18 Breakfast [employer] Diet [DIET] Plan: Plan to admit patient to control blood sugars. Sub Q sliding scale ordered. Will adjust medications as we monitor these sugars.
[2018-04-06 23:48] LABS: CHLORIDE,CL 88 mmol/L (98-107); SODIUM,NA 125 mmol/L (136-145)
[2018-04-06] MEDS ORDERED: Insulin Aspart 100 Units/ML 3 ML Pen SUBCUT ONE (23:55)
[2018-04-06] MEDS ORDERED: Sodium Chloride 0.9% 10 ML Syringe FLUSH PRN (23:59)
[2018-04-07] MEDS: Sodium Chloride 0.9% 1,000 ML IV SCH ×2 (00:11→06:35)
[2018-04-07] MEDS ORDERED: Nitroglycerin 0.4 MG Tab.SL SL PRN (00:23)
[2018-04-07] MEDS ORDERED: Warfarin 5 MG Tab PO SCH ×2 (00:30→18:00)
[2018-04-07 07:27] LABS: CHLORIDE,CL 103 mmol/L (98-107); SODIUM,NA 140 mmol/L (136-145)
[2018-04-07] MEDS ORDERED: metFORMIN 500 MG Tab PO SCH (07:30)
[2018-04-07] MEDS ORDERED: Multivitamin Tab PO SCH (08:00)
[2018-04-07] MEDS ORDERED: IPRATROPIUM NASBOTH SCH (08:00)
[2018-04-07] MEDS ORDERED: Cholecalciferol (Vitamin D3) 1,000 Unit Tab PO SCH (08:00)
[2018-04-07] MEDS ORDERED: Aspirin 81 MG Tab.EC PO SCH (08:00)
[2018-04-07] MEDS ORDERED: Formoterol/Mometasone 200-5 MCG 8.8 GM Inhaler IH SCH (08:00)
[2018-04-07] MEDS ORDERED: Furosemide 40 MG/4 ML VIAL IVPUSH SCH (08:00)
[2018-04-07] MEDS ORDERED: Insulin Detemir 100 Units/ML 3 ML Pen SUBCUT SCH (08:00)
[2018-04-07] MEDS ORDERED: Lutein/Minerals/Vitamin C/Vitamin E Acetate Cap PO SCH (08:00)
[2018-04-07] MEDS ORDERED: Losartan 50 MG Tab PO SCH (08:00)
[2018-04-07] MEDS ORDERED: Non-Formulary Medication 1 Each (Metoprolol Succinate [Toprol Xl] 100 MG) PO SCH (08:00)
[2018-04-07] MEDS ORDERED: Metoprolol Succinate 50 MG Tab.ER PO SCH (08:00)
[2018-04-07] MEDS: Insulin Aspart 100 Units/ML 3 ML Pen SUBCUT SCH ×2 (09:44→12:05)
--- NOTE | 2018-04-07 12:03 | PCM.DCSUM1 ---
Discharge Summary - Hospital Course Free Text/Narrative:: patient was admitted last evening for hyperglycemia, hgb A1c greater than 14, and glucose in urine. Patient was hydrated and given insulin. today we will send him home on a new insulin regimen. Diagnosis: Stroke: No - Discharge Data Discharge Date: 04/07/18 Discharge Disposition: Home, Self-Care 01 Condition: Good - Discharge Diagnosis/Problem(s) (1) Hyperglycemia SNOMED Code(s): 96863057 ICD Code: R73.9 - HYPERGLYCEMIA, UNSPECIFIED Status: Acute Current Visit : Yes Problem Details: Improved. (2) Glucose found in urine on examination SNOMED Code(s): 86803039 ICD Code: R81 - GLYCOSURIA Status: Acute Current Visit: Yes Problem Details: urine analysis showed high amount of glucose in urine in ER (3) Hemoglobin A1C greater than 9%, indicating poor diabetic control SNOMED Code(s): 659504707, 358146727, 360534998 ICD Code: R73.09 - OTHER ABNORMAL GLUCOSE Status: Acute Current Visit: Yes Problem Details: Result is greater than 14; patient to follow up with PCP with follow up of new insulin regimen - Patient Instructions Diet: Diabetic Diet Activity: As Tolerated - Discharge Plan Prescriptions/Med Rec: Insulin Aspart [NovoLOG] 0 unit SQ WITHMEALSANDBED PRN #3 pen PRN Reason: sliding scale insulin Insulin Aspart [NovoLOG] 10 unit SQ TID #3 pen Insulin Glarg,Human.Rec.Analog [Lantus] 30 unit SQ BID #3 pen Home Medications: Home Meds Ezetimibe [Zetia] 10 mg PO BEDTIME 01/12/17 [History] Metoprolol Succinate [Toprol XL] 100 mg PO DAILY 01/12/17 [History] atorvaSTATin Calcium [Atorvastatin Calcium] 40 mg PO BEDTIME 01/12/17 [History] metFORMIN [Glucophage] 1,000 mg PO BIDAC 01/12/17 [History] Aspirin [Halfprin] 81 mg PO DAILY 01/13/17 [History] Cholecalciferol (Vitamin D3) [Vitamin D3] 1,000 unit PO DAILY 01/13/17 [History] Lutein/Minerals/Vit A,C & E [Ocuvite] 1 tab PO DAILY 01/13/17 [History] Multivitamins [Tab-A-Tamiko] 1 tab PO DAILY 01/13/17 [History] Nitroglycerin [Nitrostat] 0.4 mg SL ASDIRECTED PRN 01/13/17 [History] Ubidecarenone [Co Q-10] 100 mg PO DAILY 01/13/17 [History] Diazepam [Valium] 2.5 mg PO DAILY 04/06/18 [History] Hydrochlorothiazide 12.5 mg PO DAILY 04/06/18 [History] Ipratropium [Atrovent 0.06% Nasal [place]] 2 sprays NASBOTH BID 04/06/18 [History] Losartan Potassium 50 mg PO DAILY 04/06/18 [History] Mometasone/Formoterol [Dulera 200-5 MCG] 1 inhalation IH BID 04/06/18 [History] Warfarin [Coumadin] 2.5 mg PO SUTUWETHFRSA 04/06/18 [History] Warfarin [Coumadin] 5 mg PO MO 04/06/18 [History] Insulin Aspart [NovoLOG] 0 unit SQ WITHMEALSANDBED PRN #3 pen 04/07/18 [Rx] Insulin Aspart [NovoLOG] 10 unit SQ TID #3 pen 04/07/18 [Rx] Insulin Glarg,Human.Rec.Analog [Lantus] 30 unit SQ BID #3 pen 04/07/18 [Rx] Forms: ED Department Discharge Referrals: Nacho Linn [Primary Care Provider] - (Follow up in 7-10 days with primary) - General Info Date of Service: 04/07/18 - Review of Systems General: Reports: No Symptoms HEENT: Reports: No Symptoms Pulmonary: Reports: No Symptoms Cardiovascular: Reports: No Symptoms Gastrointestinal: Reports: No Symptoms Genitourinary: Reports: No Symptoms Musculoskeletal: Reports: No Symptoms Skin: Reports: No Symptoms Neurological: Reports: No Symptoms Psychiatric: Reports: No Symptoms - Patient Data Vitals - Most Recent: Last Vital Signs Temp 97.6 F 04/07/18 07:34 Pulse 68 04/07/18 10:47 Resp 16 04/07/18 07:34 BP 122/66 04/07/18 10:47 Pulse Ox 97 04/07/18 07:34 Weight - Most Recent: 133 lb 12.8 oz I&O - Last 24 hours: Intake & Output 04/06/18 04/07/18 04/07/18 22:59 06:59 14:59 Intake Total 700 360 Output Total 650 Balance 50 360 Lab Results - Last 24 hrs: Laboratory Results - last 24 hr 04/06/18 04/06/18 04/06/18 Range/Units 23:30 23:30 23:30 WBC 9.2 (4.0-10.2) K/uL RBC 4.63 (4.33-5.41) M/uL Hgb 14.6 D (13.1-16.8) g/dL Hct 42.3 (39.0-49.0) % MCV 91.4 (84.0-98.0) fL MCH 31.5 (28.2-33.3) pg MCHC 34.5 (31.7-36.0) g/dL RDW 12.8 (11.2-14.1) % Plt Count 242 (150-350) K/uL Neut % (Auto) 66.7 (45.0-80.0) % Lymph % (Auto) 21.0 (10.0-50.0) % [place] % (Auto) 11.0 (2.0-14.0) % Eos % (Auto) 1.1 (0.0-5.0) % Baso % (Auto) 0.2 (0.0-2.0) % Neut # (Auto) 6.16 (1.40-7.00) K/uL Lymph # (Auto) 1.94 (0.50-3.50) K/uL [place] # (Auto) 1.02 H (0.00-1.00) K/uL Eos # (Auto) 0.10 (0.00-0.50) K/uL Baso # (Auto) 0.02 (0.00-0.20) K/uL PT (9.8-11.7) SEC INR Sodium 125 L D (136-145) mmol/L Potassium 4.5 (3.5-5.1) mmol/L Chloride 88 L D (98-107) mmol/L Carbon Dioxide 32.0 (21.0-32.0) mmol/L BUN 24 H (7-18) mg/dL Creatinine 0.98 (0.51-1.17) mg/dL Est Cr Clr Drug Dosing 52.15 mL/min Estimated GFR (MDRD) > 60 mL/min Glucose 597 H* (74-106) mg/dL POC Glucose (65-110) mg/dl Hemoglobin A1c (4.3-5.7) % Lactic Acid (0.4-2.0) mmol/L Calcium 9.6 (8.5-10.1) mg/dL Total Bilirubin 0.5 (0.2-1.0) mg/dL AST 21 (15-37) U/L ALT 55 (12-78) U/L Alkaline Phosphatase 105 (46-116) IU/L Total Protein 7.6 (6.4-8.2) g/dL Albumin 3.6 (3.4-5.0) g/dL Specimen Type Urinvoid Urine Color Yellow Urine Appearance Clear Urine pH 7.0 (5.0-9.0) Ur Specific [place] 1.010 (1.005-1.030) Urine Protein Negative (NEGATIVE) mg/dL Urine Glucose (UA) 500 H (NEGATIVE) mg/dL Urine Ketones Negative (NEGATIVE) mg/dL Urine Occult Blood Negative (NEGATIVE) Urine Nitrite Negative (NEGATIVE) Urine Bilirubin Negative (NEGATIVE) Urine Urobilinogen 0.2 (0.2-1.0) E.U./dL Ur Leukocyte Esterase Negative (NEGATIVE) Urine RBC 0-5 /HPF Urine WBC Not seen /HPF Ur Epithelial Cells Not seen /LPF Urine Bacteria Not seen (NONE TO FEW) /HPF Ketones 04/06/18 04/06/18 04/07/18 Range/Units 23:30 23:30 00:01 WBC (4.0-10.2) K/uL RBC (4.33-5.41) M/uL Hgb (13.1-16.8) g/dL Hct (39.0-49.0) % MCV (84.0-98.0) fL MCH (28.2-33.3) pg MCHC (31.7-36.0) g/dL RDW (11.2-14.1) % Plt Count (150-350) K/uL Neut % (Auto) (45.0-80.0) % Lymph % (Auto) (10.0-50.0) % [place] % (Auto) (2.0-14.0) % Eos % (Auto) (0.0-5.0) % Baso % (Auto) (0.0-2.0) % Neut # (Auto) (1.40-7.00) K/uL Lymph # (Auto) (0.50-3.50) K/uL [place] # (Auto) (0.00-1.00) K/uL Eos # (Auto) (0.00-0.50) K/uL Baso # (Auto) (0.00-0.20) K/uL PT 20.6 H D (9.8-11.7) SEC INR 1.9 Sodium (136-145) mmol/L Potassium (3.5-5.1) mmol/L Chloride (98-107) mmol/L Carbon Dioxide (21.0-32.0) mmol/L BUN (7-18) mg/dL Creatinine (0.51-1.17) mg/dL Est Cr Clr Drug Dosing mL/min Estimated GFR (MDRD) mL/min Glucose (74-106) mg/dL POC Glucose (65-110) mg/dl Hemoglobin A1c > 14.0 H (4.3-5.7) % Lactic Acid 1.8 (0.4-2.0) mmol/L Calcium (8.5-10.1) mg/dL Total Bilirubin (0.2-1.0) mg/dL AST (15-37) U/L ALT (12-78) U/L Alkaline Phosphatase (46-116) IU/L Total Protein (6.4-8.2) g/dL Albumin (3.4-5.0) g/dL Specimen Type Urine Color Urine Appearance Urine pH (5.0-9.0) Ur Specific [place] (1.005-1.030) Urine Protein (NEGATIVE) mg/dL Urine Glucose (UA) (NEGATIVE) mg/dL Urine Ketones (NEGATIVE) mg/dL Urine Occult Blood (NEGATIVE) Urine Nitrite (NEGATIVE) Urine Bilirubin (NEGATIVE) Urine Urobilinogen (0.2-1.0) E.U./dL Ur Leukocyte Esterase (NEGATIVE) Urine RBC /HPF Urine WBC /HPF Ur Epithelial Cells /LPF Urine Bacteria (NONE TO FEW) /HPF Ketones 04/07/18 04/07/18 04/07/18 Range/Units 00:01 02:08 04:08 WBC (4.0-10.2) K/uL RBC (4.33-5.41) M/uL Hgb (13.1-16.8) g/dL Hct (39.0-49.0) % MCV (84.0-98.0) fL MCH (28.2-33.3) pg MCHC (31.7-36.0) g/dL RDW (11.2-14.1) % Plt Count (150-350) K/uL Neut % (Auto) (45.0-80.0) % Lymph % (Auto) (10.0-50.0) % [place] % (Auto) (2.0-14.0) % Eos % (Auto) (0.0-5.0) % Baso % (Auto) (0.0-2.0) % Neut # (Auto) (1.40-7.00) K/uL Lymph # (Auto) (0.50-3.50) K/uL [place] # (Auto) (0.00-1.00) K/uL Eos # (Auto) (0.00-0.50) K/uL Baso # (Auto) (0.00-0.20) K/uL PT (9.8-11.7) SEC INR Sodium (136-145) mmol/L Potassium (3.5-5.1) mmol/L Chloride (98-107) mmol/L Carbon Dioxide (21.0-32.0) mmol/L BUN (7-18) mg/dL Creatinine (0.51-1.17) mg/dL Est Cr Clr Drug Dosing mL/min Estimated GFR (MDRD) mL/min Glucose (74-106) mg/dL POC Glucose 292 H* 196 H (65-110) mg/dl Hemoglobin A1c (4.3-5.7) % Lactic Acid (0.4-2.0) mmol/L Calcium (8.5-10.1) mg/dL Total Bilirubin (0.2-1.0) mg/dL AST (15-37) U/L ALT (12-78) U/L Alkaline Phosphatase (46-116) IU/L Total Protein (6.4-8.2) g/dL Albumin (3.4-5.0) g/dL Specimen Type Urine Color Urine Appearance Urine pH (5.0-9.0) Ur Specific [place] (1.005-1.030) Urine Protein (NEGATIVE) mg/dL Urine Glucose (UA) (NEGATIVE) mg/dL Urine Ketones (NEGATIVE) mg/dL Urine Occult Blood (NEGATIVE) Urine Nitrite (NEGATIVE) Urine Bilirubin (NEGATIVE) Urine Urobilinogen (0.2-1.0) E.U./dL Ur Leukocyte Esterase (NEGATIVE) Urine RBC /HPF Urine WBC /HPF Ur Epithelial Cells /LPF Urine Bacteria (NONE TO FEW) /HPF Ketones Negative 04/07/18 04/07/18 04/07/18 Range/Units 07:08 07:08 07:23 WBC 8.1 (4.0-10.2) K/uL RBC 4.53 (4.33-5.41) M/uL Hgb 14.2 (13.1-16.8) g/dL Hct 40.8 (39.0-49.0) % MCV 90.1 (84.0-98.0) fL MCH 31.3 (28.2-33.3) pg MCHC 34.8 (31.7-36.0) g/dL RDW 12.6 (11.2-14.1) % Plt Count 237 (150-350) K/uL Neut % (Auto) 60.7 (45.0-80.0) % Lymph % (Auto) 24.8 (10.0-50.0) % [place] % (Auto) 12.3 (2.0-14.0) % Eos % (Auto) 2.0 (0.0-5.0) % Baso % (Auto) 0.2 (0.0-2.0) % Neut # (Auto) 4.93 (1.40-7.00) K/uL Lymph # (Auto) 2.01 (0.50-3.50) K/uL [place] # (Auto) 1.00 (0.00-1.00) K/uL Eos # (Auto) 0.16 (0.00-0.50) K/uL Baso # (Auto) 0.02 (0.00-0.20) K/uL PT (9.8-11.7) SEC INR Sodium 140 D (136-145) mmol/L Potassium 3.9 (3.5-5.1) mmol/L Chloride 103 D (98-107) mmol/L Carbon Dioxide 34.0 H (21.0-32.0) mmol/L BUN 19 H (7-18) mg/dL Creatinine 0.86 (0.51-1.17) mg/dL Est Cr Clr Drug Dosing 60.59 mL/min Estimated GFR (MDRD) > 60 mL/min Glucose 103 (74-106) mg/dL POC Glucose 93 (65-110) mg/dl Hemoglobin A1c (4.3-5.7) % Lactic Acid (0.4-2.0) mmol/L Calcium 9.1 (8.5-10.1) mg/dL Total Bilirubin (0.2-1.0) mg/dL AST (15-37) U/L ALT (12-78) U/L Alkaline Phosphatase (46-116) IU/L Total Protein (6.4-8.2) g/dL Albumin (3.4-5.0) g/dL Specimen Type Urine Color Urine Appearance Urine pH (5.0-9.0) Ur Specific [place] (1.005-1.030) Urine Protein (NEGATIVE) mg/dL Urine Glucose (UA) (NEGATIVE) mg/dL Urine Ketones (NEGATIVE) mg/dL Urine Occult Blood (NEGATIVE) Urine Nitrite (NEGATIVE) Urine Bilirubin (NEGATIVE) Urine Urobilinogen (0.2-1.0) E.U./dL Ur Leukocyte Esterase (NEGATIVE) Urine RBC /HPF Urine WBC /HPF Ur Epithelial Cells /LPF Urine Bacteria (NONE TO FEW) /HPF Ketones 04/07/18 Range/Units 11:43 WBC (4.0-10.2) K/uL RBC (4.33-5.41) M/uL Hgb (13.1-16.8) g/dL Hct (39.0-49.0) % MCV (84.0-98.0) fL MCH (28.2-33.3) pg MCHC (31.7-36.0) g/dL RDW (11.2-14.1) % Plt Count (150-350) K/uL Neut % (Auto) (45.0-80.0) % Lymph % (Auto) (10.0-50.0) % [place] % (Auto) (2.0-14.0) % Eos % (Auto) (0.0-5.0) % Baso % (Auto) (0.0-2.0) % Neut # (Auto) (1.40-7.00) K/uL Lymph # (Auto) (0.50-3.50) K/uL [place] # (Auto) (0.00-1.00) K/uL Eos # (Auto) (0.00-0.50) K/uL Baso # (Auto) (0.00-0.20) K/uL PT (9.8-11.7) SEC INR Sodium (136-145) mmol/L Potassium (3.5-5.1) mmol/L Chloride (98-107) mmol/L Carbon Dioxide (21.0-32.0) mmol/L BUN (7-18) mg/dL Creatinine (0.51-1.17) mg/dL Est Cr Clr Drug Dosing mL/min Estimated GFR (MDRD) mL/min Glucose (74-106) mg/dL POC Glucose 319 H* (65-110) mg/dl Hemoglobin A1c (4.3-5.7) % Lactic Acid (0.4-2.0) mmol/L Calcium (8.5-10.1) mg/dL Total Bilirubin (0.2-1.0) mg/dL AST (15-37) U/L ALT (12-78) U/L Alkaline Phosphatase (46-116) IU/L Total Protein (6.4-8.2) g/dL Albumin (3.4-5.0) g/dL Specimen Type Urine Color Urine Appearance Urine pH (5.0-9.0) Ur Specific [place] (1.005-1.030) Urine Protein (NEGATIVE) mg/dL Urine Glucose (UA) (NEGATIVE) mg/dL Urine Ketones (NEGATIVE) mg/dL Urine Occult Blood (NEGATIVE) Urine Nitrite (NEGATIVE) Urine Bilirubin (NEGATIVE) Urine Urobilinogen (0.2-1.0) E.U./dL Ur Leukocyte Esterase (NEGATIVE) Urine RBC /HPF Urine WBC /HPF Ur Epithelial Cells /LPF Urine Bacteria (NONE TO FEW) /HPF Ketones Med Orders - Current: Current Medications Aspirin (Halfprin) 81 mg PO DAILY [facility] Last Admin: 04/07/18 07:46 Dose: 81 mg Atorvastatin Calcium (Lipitor) 40 mg PO BEDTIME [facility] Cholecalciferol (Vitamin D3) 1,000 units PO DAILY [facility] Last Admin: 04/07/18 07:46 Dose: 1,000 units Coenzyme Q10 (Coenzyme Q10) 100 mg PO DAILY [facility] Last Admin: 04/07/18 07:46 Dose: 100 mg Ezetimibe (Zetia) 10 mg PO BEDTIME [facility] Furosemide (Lasix) 40 mg IVPUSH DAILY [facility] Last Admin: 04/07/18 07:47 Dose: 40 mg Sodium Chloride (Normal Saline) 1,000 mls @ 150 mls/hr IV ASDIRECTED [facility] Last Admin: 04/07/18 06:35 Dose: 150 mls/hr Insulin Aspart (Novolog) 20 unit SUBCUT TIDMEALS [facility] Last Admin: 04/07/18 09:44 Dose: Not Given Insulin Detemir (Levemir) 20 unit SUBCUT BID [facility] Last Admin: 04/07/18 10:40 Dose: 20 unit Losartan Potassium (Cozaar) 50 mg PO DAILY [facility] Last Admin: 04/07/18 07:47 Dose: 50 mg Metformin HCl (Glucophage) 1,000 mg PO BIDAC [facility] Last Admin: 04/07/18 07:46 Dose: 1,000 mg Metoprolol Succinate (Toprol Xl) 100 mg PO DAILY [facility] Last Admin: 04/07/18 10:47 Dose: 100 mg Mometasone Furoate/Formoterol Fumar (Dulera 200-5 Mcg) 1 puff IH BID [facility] Last Admin: 04/07/18 07:47 Dose: 1 puff Multivitamins/Minerals/Vitamin C (Tab-A-Tamiko) 1 tab PO DAILY [facility] Last Admin: 04/07/18 07:46 Dose: 1 tab Nitroglycerin (Nitrostat) 0.4 mg SL ASDIRECTED PRN PRN Reason: Chest Pain Non-Formulary Medication (Ipratropium [Atrovent 0.06% Nasal [place]]) 2 sprays NASBOTH BID [facility] Last Admin: 04/07/18 10:49 Dose: Not Given Sodium Chloride (Saline Flush) 10 ml FLUSH ASDIRECTED PRN PRN Reason: Keep Vein Open Last Admin: 04/07/18 07:48 Dose: 10 ml Vit C/Vit E/Zinc/Copper/Lutein (Ocuvite Lutein) 1 each PO DAILY [facility] Last Admin: 04/07/18 07:46 Dose: 1 each Warfarin Sodium (Coumadin) 2.5 mg PO SuTuWeThFrSa@1800 [facility] Warfarin Sodium (Coumadin) 5 mg PO Mo@1800 [facility] Discontinued Medications Insulin Aspart (Novolog) 20 unit SUBCUT ONETIME ONE Stop: 04/06/18 23:56 Last Admin: 04/07/18 00:04 Dose: 20 units Non-Formulary Medication (Atorvastatin Calcium [Atorvastatin Calcium]) 40 mg PO BEDTIME [facility] Non-Formulary Medication (Metoprolol Succinate [Toprol Xl]) 100 mg PO DAILY [facility] Last Admin: 04/07/18 10:49 Dose: Not Given Warfarin Sodium (Coumadin) 2.5 mg PO SUTUWETHFRSA [facility] Last Admin: 04/07/18 03:10 Dose: Not Given Warfarin Sodium (Coumadin) 5 mg PO MO [facility] - Exam General: Reports: Alert, Oriented HEENT: Reports: Pupils Equal, Pupils Reactive, EOMI, Mucous Membr. Moist/[place]ck: Reports: Supple Lungs: Reports: Clear to Auscultation, Normal Respiratory Effort Cardiovascular: Reports: Regular Rate, Regular Rhythm GI/Abdominal Exam: Normal Bowel Sounds, Soft, Non-Tender, No Organomegaly, No Distention, No Abnormal Bruit, No Mass, Pelvis Stable (Male) Exam: Deferred Rectal (Males) Exam: Deferred Back Exam: Reports: Normal Inspection, Full Range of Motion Extremities: Normal Inspection, Normal Range of Motion, Non-Tender, No Pedal Edema, Normal Capillary Refill Skin: Reports: Warm, Dry, Intact Neurological: Reports: No New Focal Deficit Psy/Mental Status: Reports: Alert, Normal Affect, Normal Mood *Q Meaningful Use (DIS) - VTE *Q VTE Anticoagulation Contraindications: Med/TX Not Indicated/Need
[2018-04-07 12:12] VITALS: BP 124/65
[2018-04-07] MEDS ORDERED: atorvaSTATin 40 MG Tab PO SCH (20:00)
[2018-04-07] MEDS ORDERED: Non-Formulary Medication 1 Each (Atorvastatin Calcium [Atorvastatin Calcium] 40 MG) PO SCH (20:00)
[2018-04-07] MEDS ORDERED: Ezetimibe 10 MG Tab PO SCH (20:00)
[2018-04-10] MEDS ORDERED: Warfarin 5 MG Tab PO SCH ×2 (00:23→18:00)
== END 2018-04-07 13:35 | disposition home or self-care (01) | DRG 639 ==
LOC: SUPCPDRO 22:18 → LL.ED 22:18 → LL.MS 04-07 00:30
PROVIDERS: ADMIT Family Medicine; ATTEND Family Medicine
DX: E11.65 Type 2 diabetes mellitus with hyperglycemia (principal); I10 Essential (primary) hypertension; I25.10 Atherosclerotic heart disease of native coronary artery without angina pectoris; I48.91 Unspecified atrial fibrillation; G89.29 Other chronic pain; M54.2 Cervicalgia; E78.00 Pure hypercholesterolemia, unspecified; M19.90 Unspecified osteoarthritis, unspecified site; Z95.1 Presence of aortocoronary bypass graft; Z95.5 Presence of coronary angioplasty implant and graft; Z79.82 Long term (current) use of aspirin; Z79.899 Other long term (current) drug therapy; Z79.4 Long term (current) use of insulin; Z79.01 Long term (current) use of anticoagulants; Z86.73 Personal history of transient ischemic attack (TIA), and cerebral infarction without residual deficits
CPT/HCPCS: 36415; 80048; 80053; 81001; 82009; 82962; 83036; 83605; 85025; 85610; 93005; 96372; 99285; A9270-GY; J1815-GY; J1940; J7030; J7050

== ENCOUNTER 2020-02-22 09:12 | Inpatient (IN) | payer MEDICARE, OTHER ==
[2020-02-22] MEDS ORDERED: Nitroglycerin 0.4 MG Tab.SL SL PRN (16:12)
[2020-02-22] MEDS ORDERED: traMADol 50 MG Tab PO PRN (16:12)
--- NOTE | 2020-02-22 16:24 | PCM.HP.2 ---
H&P History of Present Illness - General Date of Service: 02/22/20 Admit Problem/Dx: Admission Diagnosis/Problem Admission Diagnosis/Problem Osteomyelitis of toe of left foot Source of Information: Patient, Old Records History Limitations: Reports: No Limitations - History of Present Illness Initial Comments - Free Text/Narative: Patient admitted to Swing Bed after being discharged from [facility]. Had left great toe amputated secondary to osteomyelitis. Is needing Swing admission for IV antibiotic therapy. Doing well. Noted to have usual Warfarin discontinued per recommendation of [facility] team. It was recommended per [facility] note to start patient on ASA 325mg daily. - Related Data Allergies/Adverse Reactions: Allergies Allergy/AdvReac Type Severity Reaction Status Date / Time No Known Allergies Allergy Verified 02/22/20 16:06 Home Medications: Home Meds Acetaminophen 650 mg PO Q6H PRN 02/22/20 [History] Albuterol Sulfate [Albuterol Sulfate Hfa] 2 puff INH Q4H PRN 02/22/20 [History] Amiodarone [Cordarone] 1 tab PO DAILY 02/22/20 [History] Aspirin [Halfprin] 81 mg PO DAILY 02/22/20 [History] Azelastine/Fluticasone [Azelastin-Flutic 137-50Mcg Spr] 1 spray NASBOTH BID 06/05 [History] Calcium Citrate/Vitamin D3 [Calcium Citrate - Vit D Caplet] 1 tab PO BIDMEALS [History] Cholecalciferol (Vitamin D3) [Vitamin D3] 1 cap PO DAILY 02/22/20 [History] Docusate Sodium [Dss] 1 tab PO DAILY 02/22/20 [History] Ertapenem [INVanz] 1 gm IV DAILY 02/22/20 [History] Ezetimibe 10 mg PO DAILY 02/22/20 [History] Fluticasone/Vilanterol [Breo Ellipta 200-25 MCG Inhalation Kit] 1 puff INH DAILY 02/22/20 [History] HCTZ/Triamterene [Maxzide 25-37.5 MG] 1 tab PO DAILY 02/22/20 [History] Heparin Sodium [Heparin Lock Flush] 300 unit IV ASDIRECTED 02/22/20 [History] Insulin Glarg,Human.Rec.Analog [Lantus] 18 unit SUBCUT Q12HR 02/22/20 [History] Insulin Lispro [Humalog] 15 unit SUBCUT TIDMEALS 02/22/20 [History] Metoprolol Tartrate 50 mg PO Q12HR 02/22/20 [History] Metoprolol Tartrate [Lopressor] 50 mg PO Q12HR 02/22/20 [History] Multivitamin 1 tab PO DAILY 02/22/20 [History] Nitroglycerin [Nitrostat] 0.4 mg SL ASDIRECTED PRN 02/22/20 [History] Sodium Chloride 0.9% [Saline Flush] 10 ml IV ASDIRECTED 02/22/20 [History] Tiotropium [place] [Spiriva Respimat] 2 puff INH DAILY 02/22/20 [History] Vancomycin 750 mg IV Q12HR 02/22/20 [History] atorvaSTATin [Lipitor] 40 mg PO BEDTIME 02/22/20 [History] metFORMIN HCl [Metformin HCl] 1 tab PO BID 02/22/20 [History] traMADol [Ultram] 25 mg PO Q4H PRN 02/22/20 [History] Past Medical History HEENT History: Reports: Cataract, Impaired Vision, Macular Degeneration, Other ( See Below) (Nevus of choroid left/macular edema left) Cardiovascular History: Reports: Bypass, CAD, Heart Failure, High Cholesterol, Hypertension, Stents Other Cardiovascular History: hx of A fib. Atrial septal aneurysm. Growth removed from [facility] this past week that was secondary to bacterial infection. Respiratory History: Reports: COPD Musculoskeletal History: Reports: Neck Pain, Chronic, Osteoarthritis Other Musculoskeletal History: c/o R hip/back pain. Cervical stenosis. Neurological History: Reports: Alzheimers Disease, Neuropathy, Diabetic, Other ( See Below) Other Neuro History: states pt. was diagnosed with "early alzheimers" but medications has not been started yet. Gait instability Endocrine/Metabolic History: Reports: Diabetes, Type II - Past Surgical History HEENT Surgical History: Reports: Cataract Surgery, Eye Surgery, Laser Surgery Cardiovascular Surgical History: Reports: Coronary Artery Bypass, Percutaneous Transluminal Angioplasty, Other (See Below) (Myxoma removal February 2020 from [facility].) Neurological Surgical History: Reports: C-Spine (fusion) Musculoskeletal Surgical History: Reports: Arthroscopic Knee (left), Shoulder Surgery (left rotator cuff), Other (See Below) (left great toe amputation) Social & Family History - Family History Family Medical History: Unobtainable - Tobacco Use Smoking Status *Q: Never Smoker - Alcohol Use Alcohol Use History: Yes Alcohol Use Frequency: Rarely - Recreational Drug Use Recreational Drug Use: No Drug Use in Last 12 Months: No H&P Review of Systems - Review of Systems: Review Of Systems: See Below General: Reports: No Symptoms HEENT: Reports: Glasses. Denies: Hearing Changes, Visual Changes Pulmonary: Reports: No Symptoms Cardiovascular: Reports: No Symptoms Gastrointestinal: Reports: No Symptoms Genitourinary: Reports: No Symptoms Musculoskeletal: Reports: No Symptoms (denies pain being present, even in amputated toe area) Skin: Reports: Other (healing incision from toe amputation) Psychiatric: Reports: No Symptoms Neurological: Reports: No Symptoms Hematologic/Lymphatic: Reports: No Symptoms Exam - Exam Exam: See Below - Vital Signs Vital Signs: Last Vital Signs Temp 36.4 C 02/22/20 14:40 Pulse 87 02/22/20 14:40 Resp 20 02/22/20 14:40 BP 149/55 H 02/22/20 14:40 Pulse Ox 100 02/22/20 14:40 - Exam General: Alert, Oriented, Cooperative HEENT: Conjunctiva Clear, EACs Clear, EOMI, Mucosa Moist & Form[place], Pupils Reactive Neck: Supple, Trachea Midline Lungs: Clear to Auscultation, Normal Respiratory Effort, Decreased Breath Sounds (right greater than left). No: Crackles, Rales, Rhonchi, Rub, Stridor, Wheezing GI/Abdominal Exam: Normal Bowel Sounds, Soft, Non-Tender, No Distention (Male) Exam: Deferred Rectal (Males) Exam: Deferred Back Exam: No: CVA Tenderness (L), CVA Tenderness (R), Muscle Spasm Extremities: Normal Range of Motion, Non-Tender, No Pedal Edema, Other ( dressing over surgical site left great toe left intact) Peripheral Pulses: 0: Radial (L) (removed for CABG procedure), 2+: Radial (R) Skin: Warm, Dry Neurological: Strength Equal Bilateral, Normal Speech, Normal Tone Neuro Extensive - Mental Status: Alert, Oriented x3, Normal Mood/Affect Sepsis Event Note - Focused Exam Vital Signs: Vital Signs Temp Pulse Resp BP Pulse Ox 02/22/20 14:40 36.4 C 87 20 149/55 H 100 Date Exam was Performed: 02/22/20 Time Exam was Performed: 16:18 - Problem List (1) Myxoma of heart SNOMED Code(s): 502377754 ICD Code: D15.1 - BENIGN NEOPLASM OF HEART Status: Acute Priority: Medium Current Visit: Yes Problem Details: Surgically removed at [place] this past week. Receiving IV antibiotics targeting organism found in the mass. (2) Osteomyelitis of great toe of left foot SNOMED Code(s): 751576212, 522054643, 4046368013229231 ICD Code: M86.9 - OSTEOMYELITIS, UNSPECIFIED Status: Acute Priority: High Current Visit: Yes Problem Details: Led to amputation of left great toe. On IV antibiotics. (3) Amputation of left great toe SNOMED Code(s): 302702173, 561081275 ICD Code: S98.112A - COMPLETE TRAUMATIC AMPUTATION OF LEFT GREAT TOE, INIT ENCNTR Status: Acute Priority: High Current Visit: Yes Problem Details: Receiving antibiotics post-surgically (4) Alzheimer's dementia SNOMED Code(s): 65898501 ICD Code: G30.9 - ALZHEIMER'S DISEASE, UNSPECIFIED Status: Chronic Priority: Low Current Visit: No Problem Details: Stable per history. Is appropriately oriented today. Qualifiers: Alzheimer's disease onset: unspecified onset Dementia behavioral disturbance: without behavioral disturbance Qualified Code(s): G30.9 - Alzheimer's disease, unspecified; F02.80 - Dementia in other diseases classified elsewhere without behavioral disturbance (5) CAD (coronary artery disease) SNOMED Code(s): 16938742 ICD Code: I25.10 - ATHSCL HEART DISEASE OF [place] CORONARY ARTERY W/O ANG PCTRS Status: Chronic Priority: Low Current Visit: No Problem Details: No apparent recent anginal complaints. Appears to be stable at this time. Qualifiers: Coronary Disease-Associated Artery/Lesion type: bypass graft [place] vs. transplanted heart: [place] heart Associated angina: without angina Qualified Code(s): I25.810 - Atherosclerosis of coronary artery bypass graft(s) without angina pectoris (6) COPD (chronic obstructive pulmonary disease) SNOMED Code(s): 21593217 ICD Code: J44.9 - CHRONIC OBSTRUCTIVE PULMONARY DISEASE, UNSPECIFIED Status : Chronic Priority: Medium Current Visit: No Onset Date: ~03/30/17 Problem Details: Stable per history. Observe trends. Qualifiers: COPD type: emphysema (7) High cholesterol SNOMED Code(s): 45556983 ICD Code: E78.00 - PURE HYPERCHOLESTEROLEMIA, UNSPECIFIED Status: Chronic Priority: Low Current Visit: No Problem Details: Currently under therapy (8) Hypertension SNOMED Code(s): 82437200 ICD Code: I10 - ESSENTIAL (PRIMARY) HYPERTENSION Status: Chronic Priority : Low Current Visit: No Problem Details: Observe trends Qualifiers: Hypertension type: essential hypertension Qualified Code(s): I10 - Essential (primary) hypertension (9) Type 2 diabetes mellitus SNOMED Code(s): 95940498 ICD Code: E11.9 - TYPE 2 DIABETES MELLITUS WITHOUT COMPLICATIONS Status: Chronic Priority: Medium Current Visit: No Problem Details: Historically poor control. Monitor blood glucose/trends. Qualifiers: Diabetes mellitus correction insulin use: with keno terminal operator use Diabetes mellitus complication status: with kidney complications Diabetes mellitus complication detail: with microalbuminuria Qualified Code(s): E11.29 - Type 2 diabetes mellitus with other diabetic kidney complication; R80.9 - Proteinuria, unspecified; Z79.4 - custodial (current) use of insulin (10) Arthritis SNOMED Code(s): 5920364 ICD Code: M19.90 - UNSPECIFIED OSTEOARTHRITIS, UNSPECIFIED SITE Status: Chronic Priority: Low Current Visit: No Problem Details: stable per patient (11) Low back pain SNOMED Code(s): 693378893 ICD Code: M54.5 - LOW BACK PAIN Status: Chronic Priority: Low Current Visit: No Qualifiers: Chronicity: chronic Back pain laterality: right Sciatica presence: without sciatica Qualified Code(s): M54.5 - Low back pain; G89.29 - Other chronic pain (12) CHF (congestive heart failure) SNOMED Code(s): 68466325 ICD Code: I50.9 - HEART FAILURE, UNSPECIFIED Status: Chronic Priority: Low Current Visit: No Onset Date: ~01/13/17 Problem Details: Stable per patient Qualifiers: Qualified Code(s): I50.9 - Heart failure, unspecified (13) Paroxysmal A-fib SNOMED Code(s): 870670737 ICD Code: I48.0 - PAROXYSMAL ATRIAL FIBRILLATION Status: Chronic Priority : Low Current Visit: No Problem Details: Stable per patient. Warfarin stopped by [facility]. To start on [id number] daily Problem List Initiated/Reviewed/Updated: Yes Orders Last 24hrs: Active Orders 24 hr Category Date Time Status Patient Status [ADT] Routine ADT 02/22/20 16:10 Ordered Oxygen Therapy [RC] PRN Care 02/22/20 16:11 Ordered Pulse Oximetry [RC] PRN Care 02/22/20 16:11 Ordered Up ad Nissa [RC] ASDIRECTED Care 02/22/20 16:10 Ordered Vital Signs [RC] Q8HR Care 02/22/20 16:10 Ordered OT Evaluation and Treatment [CONS] Routine Cons 02/22/20 16:18 Ordered PT Evaluation and Treatment [CONS] Routine Cons 02/22/20 16:18 Ordered ADA Diabetic [[place] [employer] Diet] [DIET Diet 02/22/20 Dinner Ordered ] Acetaminophen [Tylenol] Med 02/22/20 16:12 Ordered 650 mg PO Q6H PRN Amiodarone [Cordarone] Med 02/23/20 08:00 Ordered 200 mg PO DAILY Aspirin [Halfprin] Med 02/23/20 08:00 Ordered 81 mg PO DAILY Azelastine/Fluticasone [Azelastin-Flutic 137-50Mcg Spr] Med 02/22/20 18:00 Ordered 1 spray NASBOTH BID Calcium Citrate/Vitamin D3 [Calcium Citrate - Vit D Med 02/22/20 17:30 Ordered Caplet] 1 tab PO BIDMEALS Cholecalciferol (Vitamin D3) [Vitamin D3] Med 02/23/20 08:00 Ordered 1 cap PO DAILY Docusate Sodium [Dss] Med 02/23/20 08:00 Ordered 1 tab PO DAILY Ertapenem [INVanz] Med 02/23/20 08:00 Ordered 1 gm IV DAILY Ezetimibe [Zetia] Med 02/23/20 08:00 Ordered 10 mg PO DAILY HCTZ/Triamterene [Maxzide 25-37.5 MG] Med 02/23/20 08:00 Ordered 1 tab PO DAILY Heparin Sodium [Heparin Lock Flush 100 Units/ML] Med 02/22/20 16:15 Ordered 300 units FLUSH ASDIRECTED Insulin Glarg,Human.Rec.Analog [LantUS] Med 02/22/20 20:00 Ordered 18 unit SUBCUT Q12HR Insulin Lispro Med 02/22/20 18:00 Ordered 15 unit SUBCUT TIDMEALS Metoprolol Tartrate [Lopressor] Med 02/22/20 20:00 Ordered 50 mg PO Q12HR Multivitamins [Tab-A-Tamiko] Med 02/23/20 08:00 Ordered 1 tab PO DAILY Nitroglycerin [Nitrostat] Med 02/22/20 16:12 Ordered 0.4 mg SL ASDIRECTED PRN Sodium Chloride 0.9% [Saline Flush] Med 02/22/20 16:15 Ordered 10 ml IV ASDIRECTED Tiotropium [place] [Spiriva Respimat] Med 02/23/20 08:00 Ordered 2 puff INH DAILY Vancomycin [Vancomycin] Med 02/22/20 20:00 Ordered 750 mg IV Q12HR atorvaSTATin [Lipitor] Med 02/22/20 20:00 Ordered 40 mg PO BEDTIME metFORMIN HCl [Metformin HCl] Med 02/22/20 18:00 Ordered 1 tab PO BID traMADol [Ultram] Med 02/22/20 16:12 Ordered 25 mg PO Q4H PRN Resuscitation Status Routine Resus Stat 02/22/20 16:10 Ordered Medication Orders Acetaminophen (Tylenol) 650 mg PO Q6H PRN PRN Reason: Pain Amiodarone HCl (Cordarone) 200 mg PO DAILY [facility] Aspirin (Halfprin) 81 mg PO DAILY PRINCESS Ezetimibe (Zetia) 10 mg PO DAILY PRINCESS Heparin Sodium (Porcine) (Heparin Lock Flush 100 Units/Ml) 300 units FLUSH ASDIRECTED [facility] Insulin Glargine (Lantus) 18 unit SUBCUT Q12HR PRINCESS Metoprolol Tartrate (Lopressor) 50 mg PO Q12HR [facility] Multivitamins/Minerals/Vitamin C (Tab-A-Tamiko) 1 tab PO DAILY PRINCESS Nitroglycerin (Nitrostat) 0.4 mg SL ASDIRECTED PRN PRN Reason: Chest Pain Non-Formulary Medication (Atorvastatin [Lipitor]) 40 mg PO BEDTIME PRINCESS Non-Formulary Medication (Azelastine/Fluticasone [Azelastin-Flutic 137-50mcg Spr ]) 1 spray NASBOTH BID PRINCESS Non-Formulary Medication (Calcium Citrate/Vitamin D3 [Calcium Citrate - Vit D Caplet]) 1 tab PO BIDMEALS PRINCESS Non-Formulary Medication (Cholecalciferol (Vitamin D3) [Vitamin D3]) 1 cap PO DAILY PRINCESS Non-Formulary Medication (Docusate Sodium [Dss]) 1 tab PO DAILY PRINCESS Non-Formulary Medication (Ertapenem [Invanz]) 1 gm IV DAILY PRINCESS Non-Formulary Medication (Hctz/Triamterene [Maxzide 25-37.5 Mg]) 1 tab PO DAILY PRINCESS Non-Formulary Medication (Insulin Lispro) 15 unit SUBCUT TIDMEALS PRINCESS Non-Formulary Medication (Metformin Hcl [Metformin Hcl]) 1 tab PO BID PRINCESS Non-Formulary Medication (Tiotropium [place] [Spiriva Respimat]) 2 puff INH DAILY PRINCESS Non-Formulary Medication (Vancomycin [Vancomycin]) 750 mg IV Q12HR PRINCESS Sodium Chloride (Saline Flush) 10 ml IV ASDIRECTED PRINCESS Tramadol HCl (Ultram) 25 mg PO Q4H PRN PRN Reason: Pain Assessment/Plan Comment:: as above. Antibiotics are recommended for a full six weeks given patient's osteomyelitis and myxoma. Patient will need ongoing labs to monitor Vanco levels. Anticipate discharge home in 6 weeks once he completes his full course of treatment. - Mortality Measure Prognosis:: Good
[2020-02-22] MEDS ORDERED: INSULIN LISPRO 15 UNIT SUBCUT SCH (18:00)
[2020-02-22] MEDS ORDERED: Docusate Sodium Liquid 100 MG/10 ML UD Cup PO PRN (19:45)
[2020-02-22] MEDS: Calcium Carbonate/Vitamin D3 1500 MG-400 Units Tab PO SCH (19:55)
[2020-02-22] MEDS: metFORMIN 500 MG Tab PO SCH (19:56)
[2020-02-22] MEDS: Metoprolol Tartrate 50 MG Tab PO SCH (19:56)
[2020-02-22] MEDS: atorvaSTATin 40 MG Tab PO SCH (19:56)
[2020-02-22] MEDS: Albuterol 8 GM Inhaler INH PRN ×2 (19:58→22:36)
[2020-02-22] MEDS: Insulin Glarg,Human.Rec.Analog 100 Unit/ML SUBCUT SCH (19:58)
[2020-02-22] MEDS: Sodium Chloride 0.9% 10 ML Syringe IV SCH ×2 (19:59→22:24)
[2020-02-22] MEDS ORDERED: VANCOMYCIN 750 MG IV SCH (20:00)
[2020-02-22] MEDS ORDERED: Insulin Lispro 100 Units/ML 3 ML Vial SUBCUT SCH (20:00)
[2020-02-22] MEDS: Insulin Lispro 100 Units/ML 3 ML Vial SUBCUT SCH (20:56)
[2020-02-22] MEDS ORDERED: Insulin Lispro 100 Units/ML 3 ML Vial SUBCUT ONE (22:36)
[2020-02-23] MEDS: Albuterol 8 GM Inhaler INH PRN ×2 (05:00→08:27)
[2020-02-23] MEDS ORDERED: Aspirin 81 MG Tab.EC PO SCH (08:00)
[2020-02-23] MEDS ORDERED: Non-Formulary Medication 1 Each (Ertapenem [Invanz] 1 GM) IV SCH (08:00)
[2020-02-23] MEDS ORDERED: DOCUSATE SODIUM PO SCH (08:00)
[2020-02-23] MEDS: Tiotropium Inhaler 18 MCG Inhalation Powder Cap Kit of 5 INH SCH (08:28)
[2020-02-23] MEDS: Aspirin 325 MG Tab PO SCH (08:31)
[2020-02-23] MEDS: Calcium Carbonate/Vitamin D3 1500 MG-400 Units Tab PO SCH ×2 (08:31→17:32)
[2020-02-23] MEDS: Ezetimibe 10 MG Tab PO SCH (08:31)
[2020-02-23] MEDS: Multivitamin Tab PO SCH (08:31)
[2020-02-23] MEDS: Hydrochlorothiazide/Triamterene 50-75 MG Tab PO SCH (08:31)
[2020-02-23] MEDS: Cholecalciferol (Vitamin D3) 25 MCG Tab PO SCH (08:31)
[2020-02-23] MEDS: Metoprolol Tartrate 50 MG Tab PO SCH ×2 (08:31→19:58)
[2020-02-23] MEDS: Amiodarone 200 MG Tab PO SCH (08:31)
[2020-02-23] MEDS: metFORMIN 500 MG Tab PO SCH ×2 (08:32→17:31)
[2020-02-23] MEDS: Sodium Chloride 0.9% 10 ML Syringe FLUSH PRN ×7 (08:32→20:04)
[2020-02-23] MEDS: Ertapenem 1 GM in Sodium Chloride 0.9% 100 ML IV SCH (08:32)
[2020-02-23] MEDS: Insulin Glarg,Human.Rec.Analog 100 Unit/ML SUBCUT SCH ×2 (08:34→19:56)
[2020-02-23] MEDS: Insulin Lispro 100 Units/ML 3 ML Vial SUBCUT SCH ×4 (08:36→21:06)
[2020-02-23] MEDS ORDERED: Furosemide 40 MG/4 ML VIAL IVPUSH ONE (13:54)
[2020-02-23] MEDS ORDERED: Albuterol/Ipratropium 3.0-0.5 MG/3 ML Neb Soln NEB ONE (14:48)
[2020-02-23 15:38] LABS: CHLORIDE,CL 107 mmol/L (98-107); SODIUM,NA 141 mmol/L (136-145)
--- NOTE | 2020-02-23 16:35 | PCM.SN.2 ---
- Free Text/Narrative Note: Patient noted to have increase rales/rhonchi today. Vital signs stable/oxygen sats on room air within good range. Xray of chest suggestive of mild CHF. Pending formal radiology review. ProBNP 5500. Will order regular DuoNebs and Lasix and observe for changes. Hgb 8.6 today which is essentially unchanged from level at [facility] prior to discharge. No new complaints. Doing well otherwise and denies feeling short of breath. Call placed to [facility] and discussed patient with from Cardiology. TOM performed February 18, ejection fraction 55%. ARB/RICHARD not indicated for patietn as his EF is above 40% per . No additional changes suggested during conversation.
[2020-02-23] MEDS ORDERED: Furosemide 20 MG/2 ML VIAL IVPUSH ONE (19:00)
[2020-02-23] MEDS: Albuterol/Ipratropium 3.0-0.5 MG/3 ML Neb Soln NEB SCH (19:56)
[2020-02-23] MEDS: atorvaSTATin 40 MG Tab PO SCH (19:56)
[2020-02-23] MEDS ORDERED: Insulin Lispro 100 Units/ML 3 ML Vial SUBCUT ONE (22:36)
[2020-02-24] MEDS: Albuterol/Ipratropium 3.0-0.5 MG/3 ML Neb Soln NEB SCH ×4 (04:39→20:17)
[2020-02-24] MEDS ORDERED: Furosemide 40 MG/4 ML VIAL IVPUSH ONE (08:00)
[2020-02-24] MEDS: Hydrochlorothiazide/Triamterene 50-75 MG Tab PO SCH (08:18)
[2020-02-24] MEDS: Ertapenem 1 GM in Sodium Chloride 0.9% 100 ML IV SCH (08:18)
[2020-02-24] MEDS: Cholecalciferol (Vitamin D3) 25 MCG Tab PO SCH (08:18)
[2020-02-24] MEDS: Aspirin 325 MG Tab PO SCH (08:18)
[2020-02-24] MEDS: Metoprolol Tartrate 50 MG Tab PO SCH ×2 (08:19→20:17)
[2020-02-24] MEDS: Multivitamin Tab PO SCH (08:19)
[2020-02-24] MEDS: Calcium Carbonate/Vitamin D3 1500 MG-400 Units Tab PO SCH ×2 (08:19→17:04)
[2020-02-24] MEDS: metFORMIN 500 MG Tab PO SCH ×2 (08:19→17:04)
[2020-02-24] MEDS: Amiodarone 200 MG Tab PO SCH (08:19)
[2020-02-24] MEDS: Ezetimibe 10 MG Tab PO SCH (08:19)
[2020-02-24] MEDS: Tiotropium Inhaler 18 MCG Inhalation Powder Cap Kit of 5 INH SCH (08:23)
[2020-02-24] MEDS: Insulin Glarg,Human.Rec.Analog 100 Unit/ML SUBCUT SCH ×2 (08:23→20:17)
[2020-02-24] MEDS: Insulin Lispro 100 Units/ML 3 ML Vial SUBCUT SCH ×4 (08:24→20:35)
[2020-02-24] MEDS: Sodium Chloride 0.9% 10 ML Syringe FLUSH PRN ×4 (08:27→20:22)
--- NOTE | 2020-02-24 17:31 | PCM.SN.2 ---
- Free Text/Narrative Note: Lung sounds much improved today after patient received Lasix for suspected CHF/ fluid overload. Faint expiratory wheezes noted at bases. Will continue nebs and low level Lasix while patient continues to receive IV antibiotics and continue to observe for acute changes.
[2020-02-24] MEDS: atorvaSTATin 40 MG Tab PO SCH (20:17)
[2020-02-24] MEDS ORDERED: Albuterol/Ipratropium 3.0-0.5 MG/3 ML Neb Soln NEB PRN (21:59)
[2020-02-25] MEDS ORDERED: Furosemide 20 MG/2 ML VIAL IVPUSH SCH (08:00)
[2020-02-25] MEDS: Tiotropium Inhaler 18 MCG Inhalation Powder Cap Kit of 5 INH SCH (08:20)
[2020-02-25] MEDS: Aspirin 325 MG Tab PO SCH (08:21)
[2020-02-25] MEDS: Calcium Carbonate/Vitamin D3 1500 MG-400 Units Tab PO SCH ×2 (08:22→17:00)
[2020-02-25] MEDS: Hydrochlorothiazide/Triamterene 50-75 MG Tab PO SCH (08:22)
[2020-02-25] MEDS: Amiodarone 200 MG Tab PO SCH (08:22)
[2020-02-25] MEDS: Cholecalciferol (Vitamin D3) 25 MCG Tab PO SCH (08:23)
[2020-02-25] MEDS: metFORMIN 500 MG Tab PO SCH ×2 (08:23→17:00)
[2020-02-25] MEDS: Multivitamin Tab PO SCH (08:24)
[2020-02-25] MEDS: Metoprolol Tartrate 50 MG Tab PO SCH ×2 (08:24→20:23)
[2020-02-25] MEDS: Furosemide 20 MG/2 ML VIAL IVPUSH SCH (08:25)
[2020-02-25] MEDS: Ertapenem 1 GM in Sodium Chloride 0.9% 100 ML IV SCH (08:26)
[2020-02-25] MEDS: Albuterol/Ipratropium 3.0-0.5 MG/3 ML Neb Soln NEB SCH ×4 (08:26→20:23)
[2020-02-25] MEDS: Insulin Lispro 100 Units/ML 3 ML Vial SUBCUT SCH ×4 (08:27→20:24)
[2020-02-25] MEDS: Insulin Glarg,Human.Rec.Analog 100 Unit/ML SUBCUT SCH ×2 (08:27→20:24)
[2020-02-25] MEDS: Ezetimibe 10 MG Tab PO SCH (08:28)
[2020-02-25] MEDS: Sodium Chloride 0.9% 10 ML Syringe FLUSH PRN (08:32)
[2020-02-25 08:53] LABS: CHLORIDE,CL 105 mmol/L (98-107); SODIUM,NA 140 mmol/L (136-145)
[2020-02-25] MEDS: atorvaSTATin 40 MG Tab PO SCH (20:23)
[2020-02-25] MEDS: Acetaminophen 325 MG Tab PO PRN (20:29)
[2020-02-26] MEDS: Multivitamin Tab PO SCH (07:32)
[2020-02-26] MEDS: metFORMIN 500 MG Tab PO SCH ×2 (07:32→17:21)
[2020-02-26] MEDS: Amiodarone 200 MG Tab PO SCH (07:32)
[2020-02-26] MEDS: Aspirin 325 MG Tab PO SCH (07:32)
[2020-02-26] MEDS: Cholecalciferol (Vitamin D3) 25 MCG Tab PO SCH (07:33)
[2020-02-26] MEDS: Hydrochlorothiazide/Triamterene 50-75 MG Tab PO SCH (07:33)
[2020-02-26] MEDS: Calcium Carbonate/Vitamin D3 1500 MG-400 Units Tab PO SCH ×2 (07:33→17:21)
[2020-02-26] MEDS: Metoprolol Tartrate 50 MG Tab PO SCH ×2 (07:33→20:44)
[2020-02-26] MEDS: Ertapenem 1 GM in Sodium Chloride 0.9% 100 ML IV SCH (07:34)
[2020-02-26] MEDS: Ezetimibe 10 MG Tab PO SCH (07:34)
[2020-02-26] MEDS: Albuterol/Ipratropium 3.0-0.5 MG/3 ML Neb Soln NEB SCH (07:34)
[2020-02-26] MEDS: Insulin Glarg,Human.Rec.Analog 100 Unit/ML SUBCUT SCH ×2 (07:35→21:06)
[2020-02-26] MEDS: Furosemide 20 MG/2 ML VIAL IVPUSH SCH (07:35)
[2020-02-26] MEDS: Insulin Lispro 100 Units/ML 3 ML Vial SUBCUT SCH ×4 (07:36→20:47)
[2020-02-26] MEDS: Tiotropium Inhaler 18 MCG Inhalation Powder Cap Kit of 5 INH SCH (07:37)
[2020-02-26] MEDS: Sodium Chloride 0.9% 10 ML Syringe FLUSH PRN ×2 (10:07→10:09)
[2020-02-26] MEDS: atorvaSTATin 40 MG Tab PO SCH (20:45)
[2020-02-26] MEDS: Albuterol 8 GM Inhaler INH PRN (20:54)
[2020-02-26] MEDS ORDERED: Insulin Glarg,Human.Rec.Analog 100 Unit/ML SUBCUT ONE (21:30)
[2020-02-27] MEDS: Ertapenem 1 GM in Sodium Chloride 0.9% 100 ML IV SCH (07:30)
[2020-02-27] MEDS: Sodium Chloride 0.9% 10 ML Syringe FLUSH PRN (07:31)
[2020-02-27] MEDS: Furosemide 20 MG/2 ML VIAL IVPUSH SCH (07:31)
[2020-02-27] MEDS: Albuterol 8 GM Inhaler INH PRN (07:44)
[2020-02-27] MEDS: Hydrochlorothiazide/Triamterene 50-75 MG Tab PO SCH (07:47)
[2020-02-27] MEDS: Ezetimibe 10 MG Tab PO SCH (07:48)
[2020-02-27] MEDS: Calcium Carbonate/Vitamin D3 1500 MG-400 Units Tab PO SCH ×2 (07:49→17:29)
[2020-02-27] MEDS: metFORMIN 500 MG Tab PO SCH ×2 (07:49→17:29)
[2020-02-27] MEDS: Amiodarone 200 MG Tab PO SCH (07:50)
[2020-02-27] MEDS: Cholecalciferol (Vitamin D3) 25 MCG Tab PO SCH (07:51)
[2020-02-27] MEDS: Metoprolol Tartrate 50 MG Tab PO SCH ×2 (07:51→19:56)
[2020-02-27] MEDS: Aspirin 325 MG Tab PO SCH (07:52)
[2020-02-27] MEDS: Multivitamin Tab PO SCH (07:52)
[2020-02-27] MEDS: Tiotropium Inhaler 18 MCG Inhalation Powder Cap Kit of 5 INH SCH (07:53)
[2020-02-27] MEDS: Insulin Glarg,Human.Rec.Analog 100 Unit/ML SUBCUT SCH ×2 (07:54→19:55)
[2020-02-27] MEDS: Insulin Lispro 100 Units/ML 3 ML Vial SUBCUT SCH ×4 (07:56→19:54)
[2020-02-27] MEDS: AZELASTINE NASBOTH SCH ×4 (12:54→12:58)
[2020-02-27] MEDS: [UNRECOGNIZED DRUG - OTHER] NASBOTH SCH ×4 (12:54→12:58)
[2020-02-27] MEDS: FLUTICASONE NASBOTH SCH ×4 (12:54→12:58)
[2020-02-27] MEDS: atorvaSTATin 40 MG Tab PO SCH (19:55)
[2020-02-27] MEDS ORDERED: Insulin Glarg,Human.Rec.Analog 100 Unit/ML SUBCUT ONE (21:06)
[2020-02-27] MEDS: Temazepam 15 MG Cap PO PRN (22:34)
[2020-02-28] MEDS: Hydrochlorothiazide/Triamterene 50-75 MG Tab PO SCH (07:45)
[2020-02-28] MEDS: Ezetimibe 10 MG Tab PO SCH (07:48)
[2020-02-28] MEDS: Aspirin 325 MG Tab PO SCH (07:48)
[2020-02-28] MEDS: Multivitamin Tab PO SCH (07:48)
[2020-02-28] MEDS: Amiodarone 200 MG Tab PO SCH (07:48)
[2020-02-28] MEDS: Calcium Carbonate/Vitamin D3 1500 MG-400 Units Tab PO SCH ×2 (07:49→17:51)
[2020-02-28] MEDS: Metoprolol Tartrate 50 MG Tab PO SCH ×2 (07:49→20:14)
[2020-02-28] MEDS: Tiotropium Inhaler 18 MCG Inhalation Powder Cap Kit of 5 INH SCH (07:52)
[2020-02-28] MEDS: metFORMIN 500 MG Tab PO SCH (08:01)
[2020-02-28] MEDS: Insulin Lispro 100 Units/ML 3 ML Vial SUBCUT SCH ×4 (08:34→20:15)
[2020-02-28] MEDS: Furosemide 20 MG/2 ML VIAL IVPUSH SCH (08:34)
[2020-02-28] MEDS: Ertapenem 1 GM in Sodium Chloride 0.9% 100 ML IV SCH (08:34)
[2020-02-28] MEDS: Insulin Glarg,Human.Rec.Analog 100 Unit/ML SUBCUT SCH (08:35)
[2020-02-28] MEDS: Sodium Chloride 0.9% 10 ML Syringe FLUSH PRN ×2 (08:38→09:22)
[2020-02-28] MEDS: Cholecalciferol (Vitamin D3) 25 MCG Tab PO SCH (08:39)
--- NOTE | 2020-02-28 11:34 | PCM.SN.2 ---
- Free Text/Narrative Note: Patient changed to strict sliding scale due to several observed hypoglycemic episodes.
[2020-02-28] MEDS: atorvaSTATin 40 MG Tab PO SCH (20:14)
[2020-02-29] MEDS: Ertapenem 1 GM in Sodium Chloride 0.9% 100 ML IV SCH (07:45)
[2020-02-29] MEDS: Cholecalciferol (Vitamin D3) 25 MCG Tab PO SCH (07:47)
[2020-02-29] MEDS: Sodium Chloride 0.9% 10 ML Syringe FLUSH PRN ×4 (07:47→11:24)
[2020-02-29] MEDS: Metoprolol Tartrate 50 MG Tab PO SCH ×2 (07:48→20:21)
[2020-02-29] MEDS: Ezetimibe 10 MG Tab PO SCH (07:48)
[2020-02-29] MEDS: Hydrochlorothiazide/Triamterene 50-75 MG Tab PO SCH (07:48)
[2020-02-29] MEDS: Multivitamin Tab PO SCH (07:48)
[2020-02-29] MEDS: Calcium Carbonate/Vitamin D3 1500 MG-400 Units Tab PO SCH ×2 (07:48→17:20)
[2020-02-29] MEDS: Amiodarone 200 MG Tab PO SCH (07:48)
[2020-02-29] MEDS: Furosemide 20 MG/2 ML VIAL IVPUSH SCH (07:48)
[2020-02-29] MEDS: Aspirin 325 MG Tab PO SCH (07:48)
[2020-02-29] MEDS: Insulin Lispro 100 Units/ML 3 ML Vial SUBCUT SCH ×4 (07:50→20:22)
[2020-02-29] MEDS: Tiotropium Inhaler 18 MCG Inhalation Powder Cap Kit of 5 INH SCH (07:55)
[2020-02-29] MEDS: atorvaSTATin 40 MG Tab PO SCH (20:21)
[2020-02-29] MEDS: Temazepam 15 MG Cap PO PRN (21:07)
[2020-03-01] MEDS: Sodium Chloride 0.9% 10 ML Syringe FLUSH PRN ×3 (07:51→10:10)
[2020-03-01] MEDS: Furosemide 20 MG/2 ML VIAL IVPUSH SCH (07:51)
[2020-03-01] MEDS: Calcium Carbonate/Vitamin D3 1500 MG-400 Units Tab PO SCH ×2 (07:51→17:13)
[2020-03-01] MEDS: Metoprolol Tartrate 50 MG Tab PO SCH ×2 (07:52→20:06)
[2020-03-01] MEDS: Ezetimibe 10 MG Tab PO SCH (07:52)
[2020-03-01] MEDS: Amiodarone 200 MG Tab PO SCH (07:52)
[2020-03-01] MEDS: Cholecalciferol (Vitamin D3) 25 MCG Tab PO SCH (07:53)
[2020-03-01] MEDS: Multivitamin Tab PO SCH (07:53)
[2020-03-01] MEDS: Aspirin 325 MG Tab PO SCH (07:53)
[2020-03-01] MEDS: Hydrochlorothiazide/Triamterene 50-75 MG Tab PO SCH (07:53)
[2020-03-01] MEDS: Insulin Lispro 100 Units/ML 3 ML Vial SUBCUT SCH ×4 (07:54→20:07)
[2020-03-01] MEDS: Ertapenem 1 GM in Sodium Chloride 0.9% 100 ML IV SCH (07:56)
[2020-03-01] MEDS: Tiotropium Inhaler 18 MCG Inhalation Powder Cap Kit of 5 INH SCH (07:56)
[2020-03-01] MEDS: Docusate Sodium 100 MG Cap PO PRN (17:18)
[2020-03-01] MEDS: atorvaSTATin 40 MG Tab PO SCH (20:06)
[2020-03-01] MEDS: Temazepam 15 MG Cap PO PRN (21:57)
[2020-03-02] MEDS: Sodium Chloride 0.9% 10 ML Syringe FLUSH PRN ×3 (08:08→11:05)
[2020-03-02] MEDS: Aspirin 325 MG Tab PO SCH (08:08)
[2020-03-02] MEDS: Ertapenem 1 GM in Sodium Chloride 0.9% 100 ML IV SCH (08:08)
[2020-03-02] MEDS: Furosemide 20 MG/2 ML VIAL IVPUSH SCH (08:08)
[2020-03-02] MEDS: Hydrochlorothiazide/Triamterene 50-75 MG Tab PO SCH (08:08)
[2020-03-02] MEDS: Cholecalciferol (Vitamin D3) 25 MCG Tab PO SCH (08:09)
[2020-03-02] MEDS: Metoprolol Tartrate 50 MG Tab PO SCH ×2 (08:09→20:33)
[2020-03-02] MEDS: Multivitamin Tab PO SCH (08:09)
[2020-03-02] MEDS: Ezetimibe 10 MG Tab PO SCH (08:09)
[2020-03-02] MEDS: Calcium Carbonate/Vitamin D3 1500 MG-400 Units Tab PO SCH ×2 (08:10→17:10)
[2020-03-02] MEDS: Amiodarone 200 MG Tab PO SCH (08:10)
[2020-03-02] MEDS: Tiotropium Inhaler 18 MCG Inhalation Powder Cap Kit of 5 INH SCH (08:11)
[2020-03-02] MEDS: Insulin Lispro 100 Units/ML 3 ML Vial SUBCUT SCH ×2 (08:12→21:20)
[2020-03-02] MEDS ORDERED: Insulin Lispro 100 Units/ML 3 ML Vial SUBCUT ONE (11:20)
--- NOTE | 2020-03-02 11:31 | PCM.SN.2 ---
- Free Text/Narrative Note: Persistent problems with variable blood sugars in spite of current sliding scale. Elevated blood sugars are progressing. Restart Lantus and metformin both at lower doses with continutation of sliding scale for now. Note current qid Accu-checks. UA with culture and sensitivity also ordered. Repeat labs including trough Vanco level, etc. have already been ordered for 03/03. [facility] physician to access sliding scale, labs etc. in the AM.
[2020-03-02] MEDS: metFORMIN 500 MG Tab PO SCH ×2 (12:00→17:10)
[2020-03-02] MEDS: Insulin Glarg,Human.Rec.Analog 100 Unit/ML SUBCUT SCH (17:12)
[2020-03-02] MEDS: atorvaSTATin 40 MG Tab PO SCH (20:33)
[2020-03-02] MEDS: Temazepam 15 MG Cap PO PRN (22:22)
[2020-03-03 07:48] LABS: CHLORIDE,CL 102 mmol/L (98-107); SODIUM,NA 137 mmol/L (136-145)
[2020-03-03] MEDS: Ertapenem 1 GM in Sodium Chloride 0.9% 100 ML IV SCH (08:15)
[2020-03-03] MEDS: Hydrochlorothiazide/Triamterene 50-75 MG Tab PO SCH (08:15)
[2020-03-03] MEDS: metFORMIN 500 MG Tab PO SCH ×2 (08:15→20:22)
[2020-03-03] MEDS: Sodium Chloride 0.9% 10 ML Syringe FLUSH PRN ×4 (08:15→14:42)
[2020-03-03] MEDS: Amiodarone 200 MG Tab PO SCH (08:16)
[2020-03-03] MEDS: Multivitamin Tab PO SCH (08:16)
[2020-03-03] MEDS: Calcium Carbonate/Vitamin D3 1500 MG-400 Units Tab PO SCH ×2 (08:16→20:22)
[2020-03-03] MEDS: Furosemide 20 MG/2 ML VIAL IVPUSH SCH (08:16)
[2020-03-03] MEDS: Metoprolol Tartrate 50 MG Tab PO SCH ×2 (08:16→20:22)
[2020-03-03] MEDS: Ezetimibe 10 MG Tab PO SCH (08:16)
[2020-03-03] MEDS: Cholecalciferol (Vitamin D3) 25 MCG Tab PO SCH (08:16)
[2020-03-03] MEDS: Aspirin 325 MG Tab PO SCH (08:16)
[2020-03-03] MEDS: Tiotropium Inhaler 18 MCG Inhalation Powder Cap Kit of 5 INH SCH (08:17)
[2020-03-03] MEDS: Insulin Lispro 100 Units/ML 3 ML Vial SUBCUT SCH ×4 (08:18→20:25)
[2020-03-03] MEDS: Insulin Glarg,Human.Rec.Analog 100 Unit/ML SUBCUT SCH ×2 (08:20→20:23)
[2020-03-03] MEDS: Docusate Sodium 100 MG Cap PO PRN (20:22)
[2020-03-03] MEDS: atorvaSTATin 40 MG Tab PO SCH (20:23)
[2020-03-03] MEDS: Temazepam 15 MG Cap PO PRN (22:14)
[2020-03-04] MEDS: Aspirin 325 MG Tab PO SCH (07:48)
[2020-03-04] MEDS: Amiodarone 200 MG Tab PO SCH (07:48)
[2020-03-04] MEDS: Multivitamin Tab PO SCH (07:48)
[2020-03-04] MEDS: metFORMIN 500 MG Tab PO SCH ×2 (07:49→17:40)
[2020-03-04] MEDS: Cholecalciferol (Vitamin D3) 25 MCG Tab PO SCH (07:49)
[2020-03-04] MEDS: Ezetimibe 10 MG Tab PO SCH (07:49)
[2020-03-04] MEDS: Calcium Carbonate/Vitamin D3 1500 MG-400 Units Tab PO SCH ×2 (07:49→17:40)
[2020-03-04] MEDS: Metoprolol Tartrate 50 MG Tab PO SCH ×2 (07:49→20:40)
[2020-03-04] MEDS: Hydrochlorothiazide/Triamterene 50-75 MG Tab PO SCH (07:50)
[2020-03-04] MEDS: Insulin Lispro 100 Units/ML 3 ML Vial SUBCUT SCH ×4 (07:52→20:46)
[2020-03-04] MEDS: Insulin Glarg,Human.Rec.Analog 100 Unit/ML SUBCUT SCH ×2 (07:54→17:39)
[2020-03-04] MEDS: Ertapenem 1 GM in Sodium Chloride 0.9% 100 ML IV SCH (07:55)
[2020-03-04] MEDS: Furosemide 20 MG/2 ML VIAL IVPUSH SCH (07:56)
[2020-03-04] MEDS: Tiotropium Inhaler 18 MCG Inhalation Powder Cap Kit of 5 INH SCH (07:56)
[2020-03-04] MEDS: Sodium Chloride 0.9% 10 ML Syringe FLUSH PRN ×4 (07:58→10:05)
[2020-03-04] MEDS: atorvaSTATin 40 MG Tab PO SCH (20:41)
[2020-03-05] MEDS: Acetaminophen 325 MG Tab PO PRN (00:57)
[2020-03-05] MEDS: Temazepam 15 MG Cap PO PRN ×2 (00:58→22:35)
[2020-03-05] MEDS: Ertapenem 1 GM in Sodium Chloride 0.9% 100 ML IV SCH (07:43)
[2020-03-05] MEDS: Aspirin 325 MG Tab PO SCH (07:44)
[2020-03-05] MEDS: metFORMIN 500 MG Tab PO SCH ×2 (07:44→18:06)
[2020-03-05] MEDS: Metoprolol Tartrate 50 MG Tab PO SCH ×2 (07:45→20:29)
[2020-03-05] MEDS: Amiodarone 200 MG Tab PO SCH (07:45)
[2020-03-05] MEDS: Hydrochlorothiazide/Triamterene 50-75 MG Tab PO SCH (07:45)
[2020-03-05] MEDS: Calcium Carbonate/Vitamin D3 1500 MG-400 Units Tab PO SCH ×2 (07:45→18:06)
[2020-03-05] MEDS: Cholecalciferol (Vitamin D3) 25 MCG Tab PO SCH (07:46)
[2020-03-05] MEDS: Multivitamin Tab PO SCH (07:46)
[2020-03-05] MEDS: Ezetimibe 10 MG Tab PO SCH (07:46)
[2020-03-05] MEDS: Sodium Chloride 0.9% 10 ML Syringe FLUSH PRN ×2 (07:47→08:34)
[2020-03-05] MEDS: Furosemide 20 MG/2 ML VIAL IVPUSH SCH (07:47)
[2020-03-05] MEDS: Insulin Glarg,Human.Rec.Analog 100 Unit/ML SUBCUT SCH ×2 (07:50→18:06)
[2020-03-05] MEDS: Insulin Lispro 100 Units/ML 3 ML Vial SUBCUT SCH ×4 (07:50→20:29)
[2020-03-05] MEDS: Tiotropium Inhaler 18 MCG Inhalation Powder Cap Kit of 5 INH SCH (07:51)
[2020-03-05] MEDS: atorvaSTATin 40 MG Tab PO SCH (20:28)
[2020-03-05] MEDS: Docusate Sodium 100 MG Cap PO PRN (22:34)
[2020-03-06] MEDS: Aspirin 325 MG Tab PO SCH (07:35)
[2020-03-06] MEDS: Amiodarone 200 MG Tab PO SCH (07:35)
[2020-03-06] MEDS: metFORMIN 500 MG Tab PO SCH ×2 (07:35→17:18)
[2020-03-06] MEDS: Metoprolol Tartrate 50 MG Tab PO SCH ×2 (07:36→19:30)
[2020-03-06] MEDS: Calcium Carbonate/Vitamin D3 1500 MG-400 Units Tab PO SCH ×2 (07:36→17:18)
[2020-03-06] MEDS: Hydrochlorothiazide/Triamterene 50-75 MG Tab PO SCH (07:36)
[2020-03-06] MEDS: Insulin Glarg,Human.Rec.Analog 100 Unit/ML SUBCUT SCH ×2 (07:41→17:19)
[2020-03-06] MEDS: Insulin Lispro 100 Units/ML 3 ML Vial SUBCUT SCH ×4 (07:43→21:21)
[2020-03-06] MEDS: Tiotropium Inhaler 18 MCG Inhalation Powder Cap Kit of 5 INH SCH (07:44)
[2020-03-06] MEDS: Multivitamin Tab PO SCH (07:44)
[2020-03-06] MEDS: Furosemide 20 MG/2 ML VIAL IVPUSH SCH (07:45)
[2020-03-06] MEDS: Sodium Chloride 0.9% 10 ML Syringe FLUSH PRN ×3 (07:46→13:24)
[2020-03-06] MEDS: Ertapenem 1 GM in Sodium Chloride 0.9% 100 ML IV SCH (07:46)
[2020-03-06] MEDS: Cholecalciferol (Vitamin D3) 25 MCG Tab PO SCH (07:47)
[2020-03-06] MEDS: Ezetimibe 10 MG Tab PO SCH (07:49)
[2020-03-06] MEDS: Docusate Sodium 100 MG Cap PO PRN (13:23)
[2020-03-06] MEDS: atorvaSTATin 40 MG Tab PO SCH (19:30)
[2020-03-06] MEDS: Magnesium Hydroxide 400 MG/5 ML Susp 30 ML Cup PO PRN (21:47)
[2020-03-07] MEDS: Metoprolol Tartrate 50 MG Tab PO SCH ×2 (07:20→20:57)
[2020-03-07] MEDS: Calcium Carbonate/Vitamin D3 1500 MG-400 Units Tab PO SCH ×2 (07:20→17:10)
[2020-03-07] MEDS: Multivitamin Tab PO SCH (07:20)
[2020-03-07] MEDS: Ezetimibe 10 MG Tab PO SCH (07:20)
[2020-03-07] MEDS: Amiodarone 200 MG Tab PO SCH (07:20)
[2020-03-07] MEDS: Aspirin 325 MG Tab PO SCH (07:20)
[2020-03-07] MEDS: metFORMIN 500 MG Tab PO SCH ×2 (07:20→17:09)
[2020-03-07] MEDS: Cholecalciferol (Vitamin D3) 25 MCG Tab PO SCH (07:20)
[2020-03-07] MEDS: Furosemide 20 MG/2 ML VIAL IVPUSH SCH (07:21)
[2020-03-07] MEDS: Ertapenem 1 GM in Sodium Chloride 0.9% 100 ML IV SCH (07:22)
[2020-03-07] MEDS: Tiotropium Inhaler 18 MCG Inhalation Powder Cap Kit of 5 INH SCH (07:24)
[2020-03-07] MEDS: Hydrochlorothiazide/Triamterene 50-75 MG Tab PO SCH (07:29)
[2020-03-07] MEDS: Insulin Glarg,Human.Rec.Analog 100 Unit/ML SUBCUT SCH ×2 (07:31→17:11)
[2020-03-07] MEDS: Insulin Lispro 100 Units/ML 3 ML Vial SUBCUT SCH ×4 (07:32→20:59)
[2020-03-07] MEDS: Sodium Chloride 0.9% 10 ML Syringe FLUSH PRN ×2 (07:35→09:55)
[2020-03-07] MEDS: atorvaSTATin 40 MG Tab PO SCH (20:58)
[2020-03-07] MEDS: Temazepam 15 MG Cap PO PRN (21:55)
[2020-03-08] MEDS: Sodium Chloride 0.9% 10 ML Syringe FLUSH PRN (07:47)
[2020-03-08] MEDS: Furosemide 20 MG/2 ML VIAL IVPUSH SCH (07:47)
[2020-03-08] MEDS: Tiotropium Inhaler 18 MCG Inhalation Powder Cap Kit of 5 INH SCH (07:47)
[2020-03-08] MEDS: Aspirin 325 MG Tab PO SCH (07:48)
[2020-03-08] MEDS: Docusate Sodium 100 MG Cap PO PRN (07:48)
[2020-03-08] MEDS: Cholecalciferol (Vitamin D3) 25 MCG Tab PO SCH (07:48)
[2020-03-08] MEDS: Ertapenem 1 GM in Sodium Chloride 0.9% 100 ML IV SCH (07:48)
[2020-03-08] MEDS: Hydrochlorothiazide/Triamterene 50-75 MG Tab PO SCH (07:49)
[2020-03-08] MEDS: Calcium Carbonate/Vitamin D3 1500 MG-400 Units Tab PO SCH ×2 (07:49→17:38)
[2020-03-08] MEDS: Metoprolol Tartrate 50 MG Tab PO SCH ×2 (07:49→20:58)
[2020-03-08] MEDS: metFORMIN 500 MG Tab PO SCH ×2 (07:50→17:38)
[2020-03-08] MEDS: Amiodarone 200 MG Tab PO SCH (07:50)
[2020-03-08] MEDS: Ezetimibe 10 MG Tab PO SCH (07:51)
[2020-03-08] MEDS: Multivitamin Tab PO SCH (07:51)
[2020-03-08] MEDS: Insulin Lispro 100 Units/ML 3 ML Vial SUBCUT SCH ×4 (07:51→21:00)
[2020-03-08] MEDS: Insulin Glarg,Human.Rec.Analog 100 Unit/ML SUBCUT SCH ×2 (07:52→17:38)
[2020-03-08] MEDS: atorvaSTATin 40 MG Tab PO SCH (20:58)
[2020-03-08] MEDS: Temazepam 15 MG Cap PO PRN (22:12)
[2020-03-09] MEDS: metFORMIN 500 MG Tab PO SCH ×2 (08:00→17:17)
[2020-03-09] MEDS: Docusate Sodium 100 MG Cap PO PRN (08:26)
[2020-03-09] MEDS: Furosemide 20 MG/2 ML VIAL IVPUSH SCH (08:26)
[2020-03-09] MEDS: Ezetimibe 10 MG Tab PO SCH (08:26)
[2020-03-09] MEDS: Aspirin 325 MG Tab PO SCH (08:26)
[2020-03-09] MEDS: Sodium Chloride 0.9% 10 ML Syringe FLUSH PRN (08:27)
[2020-03-09] MEDS: Ertapenem 1 GM in Sodium Chloride 0.9% 100 ML IV SCH (08:27)
[2020-03-09] MEDS: Multivitamin Tab PO SCH (08:27)
[2020-03-09] MEDS: Calcium Carbonate/Vitamin D3 1500 MG-400 Units Tab PO SCH ×2 (08:27→17:17)
[2020-03-09] MEDS: Amiodarone 200 MG Tab PO SCH (08:27)
[2020-03-09] MEDS: Metoprolol Tartrate 50 MG Tab PO SCH ×2 (08:30→19:22)
[2020-03-09] MEDS: Hydrochlorothiazide/Triamterene 50-75 MG Tab PO SCH (08:31)
[2020-03-09] MEDS: Cholecalciferol (Vitamin D3) 25 MCG Tab PO SCH (08:33)
[2020-03-09] MEDS: Tiotropium Inhaler 18 MCG Inhalation Powder Cap Kit of 5 INH SCH (08:33)
[2020-03-09] MEDS: Insulin Lispro 100 Units/ML 3 ML Vial SUBCUT SCH ×4 (08:36→21:12)
[2020-03-09] MEDS: Insulin Glarg,Human.Rec.Analog 100 Unit/ML SUBCUT SCH ×2 (08:36→17:17)
[2020-03-09] MEDS: atorvaSTATin 40 MG Tab PO SCH (19:22)
[2020-03-09] MEDS: Magnesium Hydroxide 400 MG/5 ML Susp 30 ML Cup PO PRN (19:22)
[2020-03-09] MEDS: Temazepam 15 MG Cap PO PRN (22:09)
[2020-03-10] MEDS: Furosemide 20 MG/2 ML VIAL IVPUSH SCH (07:53)
[2020-03-10] MEDS: Amiodarone 200 MG Tab PO SCH (07:54)
[2020-03-10] MEDS: Hydrochlorothiazide/Triamterene 50-75 MG Tab PO SCH (07:54)
[2020-03-10] MEDS: Multivitamin Tab PO SCH (07:55)
[2020-03-10] MEDS: Aspirin 325 MG Tab PO SCH (07:55)
[2020-03-10] MEDS: Calcium Carbonate/Vitamin D3 1500 MG-400 Units Tab PO SCH ×2 (07:56→17:07)
[2020-03-10] MEDS: Cholecalciferol (Vitamin D3) 25 MCG Tab PO SCH (07:56)
[2020-03-10] MEDS: Metoprolol Tartrate 50 MG Tab PO SCH ×2 (07:56→20:58)
[2020-03-10] MEDS: metFORMIN 500 MG Tab PO SCH ×2 (07:56→17:07)
[2020-03-10] MEDS: Ezetimibe 10 MG Tab PO SCH (07:56)
[2020-03-10] MEDS: Sodium Chloride 0.9% 10 ML Syringe FLUSH PRN ×3 (08:00→08:19)
[2020-03-10] MEDS: Insulin Lispro 100 Units/ML 3 ML Vial SUBCUT SCH ×4 (08:05→20:57)
[2020-03-10] MEDS: Insulin Glarg,Human.Rec.Analog 100 Unit/ML SUBCUT SCH ×2 (08:08→17:12)
[2020-03-10] MEDS: Ertapenem 1 GM in Sodium Chloride 0.9% 100 ML IV SCH (08:10)
[2020-03-10] MEDS: Tiotropium Inhaler 18 MCG Inhalation Powder Cap Kit of 5 INH SCH (08:13)
[2020-03-10] MEDS: atorvaSTATin 40 MG Tab PO SCH (21:00)
[2020-03-10] MEDS: Temazepam 15 MG Cap PO PRN (21:59)
[2020-03-11] MEDS: Furosemide 20 MG/2 ML VIAL IVPUSH SCH (07:31)
[2020-03-11] MEDS: Sodium Chloride 0.9% 10 ML Syringe FLUSH PRN ×2 (07:33→08:02)
[2020-03-11] MEDS: metFORMIN 500 MG Tab PO SCH ×2 (07:37→17:16)
[2020-03-11] MEDS: Ezetimibe 10 MG Tab PO SCH (07:38)
[2020-03-11] MEDS: Hydrochlorothiazide/Triamterene 50-75 MG Tab PO SCH (07:38)
[2020-03-11] MEDS: Tiotropium Inhaler 18 MCG Inhalation Powder Cap Kit of 5 INH SCH (07:38)
[2020-03-11] MEDS: Metoprolol Tartrate 50 MG Tab PO SCH ×2 (07:38→19:11)
[2020-03-11] MEDS: Amiodarone 200 MG Tab PO SCH (07:39)
[2020-03-11] MEDS: Multivitamin Tab PO SCH (07:39)
[2020-03-11] MEDS: Calcium Carbonate/Vitamin D3 1500 MG-400 Units Tab PO SCH ×2 (07:39→17:17)
[2020-03-11] MEDS: Aspirin 325 MG Tab PO SCH (07:39)
[2020-03-11] MEDS: Cholecalciferol (Vitamin D3) 25 MCG Tab PO SCH (07:40)
[2020-03-11] MEDS: Insulin Glarg,Human.Rec.Analog 100 Unit/ML SUBCUT SCH ×2 (07:40→17:18)
[2020-03-11] MEDS: Ertapenem 1 GM in Sodium Chloride 0.9% 100 ML IV SCH (07:51)
[2020-03-11 08:00] LABS: CHLORIDE,CL 102 mmol/L (98-107); SODIUM,NA 138 mmol/L (136-145)
[2020-03-11] MEDS: Insulin Lispro 100 Units/ML 3 ML Vial SUBCUT SCH ×4 (08:03→21:55)
[2020-03-11] MEDS ORDERED: Aluminum Hydroxide/Magnesium Hydroxide/Simethicone Susp 30 ML Cup PO PRN (12:57)
[2020-03-11] MEDS: atorvaSTATin 40 MG Tab PO SCH (19:12)
[2020-03-12] MEDS: Cholecalciferol (Vitamin D3) 25 MCG Tab PO SCH (08:03)
[2020-03-12] MEDS: Ezetimibe 10 MG Tab PO SCH (08:03)
[2020-03-12] MEDS: Aspirin 325 MG Tab PO SCH (08:03)
[2020-03-12] MEDS: Calcium Carbonate/Vitamin D3 1500 MG-400 Units Tab PO SCH (08:04)
[2020-03-12] MEDS: metFORMIN 500 MG Tab PO SCH (08:04)
[2020-03-12] MEDS: Multivitamin Tab PO SCH (08:05)
[2020-03-12] MEDS: Furosemide 20 MG/2 ML VIAL IVPUSH SCH (08:10)
[2020-03-12] MEDS: Hydrochlorothiazide/Triamterene 50-75 MG Tab PO SCH (08:14)
[2020-03-12] MEDS: Amiodarone 200 MG Tab PO SCH (08:14)
[2020-03-12] MEDS: Metoprolol Tartrate 50 MG Tab PO SCH (08:14)
[2020-03-12] MEDS: Insulin Glarg,Human.Rec.Analog 100 Unit/ML SUBCUT SCH (08:16)
[2020-03-12] MEDS: Insulin Lispro 100 Units/ML 3 ML Vial SUBCUT SCH ×2 (08:17→11:44)
[2020-03-12] MEDS: Tiotropium Inhaler 18 MCG Inhalation Powder Cap Kit of 5 INH SCH (08:21)
[2020-03-12] MEDS: Ertapenem 1 GM in Sodium Chloride 0.9% 100 ML IV SCH (08:23)
[2020-03-12] MEDS: Sodium Chloride 0.9% 10 ML Syringe FLUSH PRN ×3 (08:27→11:47)
[2020-03-12 08:37] VITALS: BP 119/54; PULSE 80
--- NOTE | 2020-03-12 09:36 | PCM.DCSUM1 ---
Discharge Summary - Hospital Course HPI Initial Comments: See Emergency room note/admission H&P Brief History: See emergency room note/admission H&P Diagnosis: Stroke: No Modified [place] Scale: No Symptoms at All Modified [place] Scale Score: 0 - Discharge Data Discharge Date: 03/12/20 Discharge Disposition: Home, Self-Care 01 Condition: Good - Referral to Home Health Primary Care Physician: PCP Not In Area - Discharge Diagnosis/Problem(s) (1) Myxoma of heart SNOMED Code(s): 220777999 ICD Code: D15.1 - BENIGN NEOPLASM OF HEART Status: Acute Priority: Medium Current Visit: Yes Problem Details: Surgically removed at [facility] in [place] prior to transfer to our facility for swing bed care. this past week. The patient is receiving IV antibiotics, including IV vancomycin and IV Invanz targeting organism found in the mass, with IV antibiotic therapy to be continued on an outpatient basis and medical therapy controlled both during swing bed care and as an outpatient by his [place] providers. The patient was afebrile with stable vital signs prior to discharge. No chest pain or anginal type symptoms, in spite of some mild borderline CHF during initial phases of his swing bed care. (2) Osteomyelitis of great toe of left foot SNOMED Code(s): 076058802, 818232225, 8343536687834634 ICD Code: M86.9 - OSTEOMYELITIS, UNSPECIFIED Status: Acute Priority: High Current Visit: Yes Problem Details: Osteomyelitis of digit #1 of the left foot, which did lead to amputation of left great toe prior to transfer to this facility for swing bed care. IV antibiotics during swing bed and as an outpatient as above. PT and OT were conducted during this hospitalization, which have been completed at this time. He has not recently needed any Ultram. (3) Anemia SNOMED Code(s): 794532269 ICD Code: D64.9 - ANEMIA, UNSPECIFIED Status: Chronic Priority: Medium Current Visit: Yes Problem Details: Mild anemia during his swing bed care. Note that blood work is closely followed by his regular providers at [facility] in [place], including during the swing bed care. Further workup depending on his clinical course. No evidence of abdominal complaints, etc. GI bleed, etc. Qualifiers: Anemia type: other cause Other causes of anemia: other cause, not classified Qualified Code(s): D64.89 - Other specified anemias (4) Renal insufficiency SNOMED Code(s): 281686120, 814244195 ICD Code: N28.9 - DISORDER OF KIDNEY AND URETER, UNSPECIFIED Status: Chronic Priority: Medium Current Visit: Yes Problem Details: Mild diabetic nephropathy with proteinuria. Continue to observe closely by his regular providers. (5) Alzheimer's dementia SNOMED Code(s): 14270165 ICD Code: G30.9 - ALZHEIMER'S DISEASE, UNSPECIFIED Status: Chronic Priority: Medium Current Visit: Yes Problem Details: Stable per history and borderline to this point. Continue to observe closely by his regular providers. Qualifiers: Alzheimer's disease onset: unspecified onset Dementia behavioral disturbance: without behavioral disturbance Qualified Code(s): G30.9 - Alzheimer's disease, unspecified; F02.80 - Dementia in other diseases classified elsewhere without behavioral disturbance (6) CAD (coronary artery disease) SNOMED Code(s): 53462922 ICD Code: I25.10 - ATHSCL HEART DISEASE OF [place] CORONARY ARTERY W/O ANG PCTRS Status: Chronic Priority: Medium Current Visit: Yes Problem Details: No chest pain or anginal type symptoms during his swing bed care as above. Qualifiers: Coronary Disease-Associated Artery/Lesion type: bypass graft [place] vs. transplanted heart: [place] heart Associated angina: without angina Qualified Code(s): I25.810 - Atherosclerosis of coronary artery bypass graft(s) without angina pectoris (7) CHF (congestive heart failure) SNOMED Code(s): 08779300 ICD Code: I50.9 - HEART FAILURE, UNSPECIFIED Status: Chronic Priority: High Current Visit: Yes Onset Date: ~01/13/17 Problem Details: On problematic at this time. During early phases of his son. Here the patient did have some borderline CHF, which did resolve well with low-dose IV Lasix therapy. Cardiology consultation by [facility] physician at time of his mild CHF with no further recommendations given. Note echocardiogram on 02/19/20 with ejection fraction of 55% at that time. The patient only required 10 mg of IV Lasix daily during this hospitalization and is already on hydrochlorothiazide as a diuretic. No further Lasix or additional potassium supplementation at discharge at this time. Continue to observe closely by his regular providers as above. Qualifiers: Qualified Code(s): I50.9 - Heart failure, unspecified (8) COPD (chronic obstructive pulmonary disease) SNOMED Code(s): 02037753 ICD Code: J44.9 - CHRONIC OBSTRUCTIVE PULMONARY DISEASE, UNSPECIFIED Status : Chronic Priority: Medium Current Visit: Yes Onset Date: ~01/13/17 Problem Details: Stable per history. No significant fever or bronchitic type symptoms during his swing bed care. Continue current medical therapy. Qualifiers: COPD type: emphysema Emphysema type: panlobular Qualified Code(s): J43.1 - Panlobular emphysema (9) High cholesterol SNOMED Code(s): 66121488 ICD Code: E78.00 - PURE HYPERCHOLESTEROLEMIA, UNSPECIFIED Status: Chronic Priority: Medium Current Visit: Yes Problem Details: Currently under therapy with continued close observation by his regular provider secondary to his IDDM. (10) Hypertension SNOMED Code(s): 52427187 ICD Code: I10 - ESSENTIAL (PRIMARY) HYPERTENSION Status: Chronic Priority : Low Current Visit: Yes Problem Details: Blood pressures under good control during his swing bed care. Qualifiers: Hypertension type: essential hypertension Qualified Code(s): I10 - Essential (primary) hypertension (11) Paroxysmal A-fib SNOMED Code(s): 550669166 ICD Code: I48.0 - PAROXYSMAL ATRIAL FIBRILLATION Status: Chronic Priority : Medium Current Visit: Yes Problem Details: Stable per patient history with no evidence of significant arrhythmia during this hospitalization. Note that his warfarin stopped by Robin per recommendation of his providers/ director of consumer affairs with initiation of ASA 325mg daily during his swing bed care. (12) Type 2 diabetes mellitus SNOMED Code(s): 37279163 ICD Code: E11.9 - TYPE 2 DIABETES MELLITUS WITHOUT COMPLICATIONS Status: Chronic Priority: Medium Current Visit: Yes Problem Details: Historically poor control with additional problems with moderate hypoglycemia without sequelae during his swing bed care. Multiple changes in his insulin and oral medical regimen with reduction during his swing bed care. The patient agrees to continue his Accu-Cheks and sliding scale after discharge. Close follow-up by his regular providers. Qualifiers: Diabetes mellitus fci insulin use: with termite control servicer use Diabetes mellitus complication status: with kidney complications Diabetes mellitus complication detail: with microalbuminuria Qualified Code(s): E11.29 - Type 2 diabetes mellitus with other diabetic kidney complication; R80.9 - Proteinuria, unspecified; Z79.4 - senior living (current) use of insulin - Patient Summary/Data Operative Procedure(s) Performed: None during swing bed care Complications: None despite episodes of mild CHF and hypoglycemia as above. Consults: Consultations 02/22/20 16:18 OT Evaluation and Treatment [CONS] Routine PT Evaluation and Treatment [CONS] Routine Labs Pending at D/C: None Recommended Follow-up Testing/Procedures: As per discharge instructions Planned Operative Procedure(s) after DC: None Hospital Course: The patient was transferred to this facility for swing bed care, including IV antibiotics and PT/OT as above. His blood work, IV antibiotic therapy, etc. was essentially controlled by his providers at [facility]. Outpatient IV antibiotic therapy and follow-up blood work will also be controlled on an outpatient basis by that facility per their request. Patient is not requesting any home health at this time and is closely followed by his . Otherwise treatment therapy, etc. as above with no significant complications during his care in this facility. - Patient Instructions Diet: Fluid Restriction Diet, Other: 1800-calorie ADA, heart healthy Fluid Restriction: 2000 mL Activity: As Tolerated (With strict fall precautions and walker use) Driving: Do Not Drive Showering/Bathing: May Shower Wound/Incision Care: Keep Operative Site/Wound Site Clean and Dry Notify Provider of: Fever, Increased Pain, Swelling and Redness, Drainage, Nausea and/or Vomiting Other/Special Instructions: 1. Follow-up with your regular providers at [facility] as already scheduled. 2. Follow-up in this facility on a daily basis for IV antibiotic therapy as scheduled by the nurses at discharge. 3. Your regular providers at [facility] have scheduled you for a CBC, comprehensive metabolic panel, ESR, and a CRP which will be drawn in this facility on 03/17 time of your IV antibiotic therapy as above. 4. Immediately after this visit verify that your cellular telephone's voicemail has been activated and is empty. Also verify that your home telephone 's answering machine is operating properly and has space to receive messages. Note that it is sometimes necessary for us to be able to contact you at a later date to discuss your medical care. 5. Please remember that we are ALWAYS here for you and want to answer any questions you may have. Feel free to call the hospital any time and we call you back CHRIS. SYMPTOMS TO LOOK OUT FOR: You have been recently hospitalized for your recent toe amputation and removal of a benign tumor/myxoma from heart. You should look out for the following symptoms after discharge: 1. Make absolutely certain that you completely understand the reasons you are taking any of your new and/or old medications and /or supplements as discussed with you by the nurse at time of discharge. This includes possible side effects versus interactions between your medications and/ or supplements. Don't be afraid to take extra time to ask any questions or express any concerns, because that is what we are here for. It is very important to us that you understand your care. 2. Notify this facility, telephone number [phone], and/or your regular provider CHRIS if you experience any of the following symptoms: a. Sudden chest pressure or pain especially with radiation to the neck, jaws, arms, mid back, etc. especially if these are associated with nausea, cold sweats, dizziness, racing heart, weakness , near fainting, etc. b. Any shortness of breath or decreased exercise tolerance that has changed since your hospital discharge and is not normal for you. c. Any persistent heartburn type symptoms that is not normal for you and is not relieved by any of your discharge medications or supplements. d. Any progressive weight gain especially more than 5 pounds of weight gain prior to your scheduled appointment with your regular provider. e. Any racing heart, dizziness, etc. not associated with the other symptoms as above. f. Any persistent fever equal to or greater than 100.5, which does not respond to recommended doses of Tylenol, ibuprofen, Aleve, or other previously prescribed fever medications - Discharge Plan *PRESCRIPTION DRUG MONITORING PROGRAM REVIEWED*: Not Applicable *COPY OF PRESCRIPTION DRUG MONITORING REPORT IN PATIENT PAUL: Not Applicable Home Medications: Home Meds Acetaminophen 650 mg PO Q6H PRN 02/22/20 [History] Albuterol Sulfate [Albuterol Sulfate Hfa] 2 puff INH Q4H PRN 02/22/20 [History] Amiodarone [Cordarone] 1 tab PO DAILY 02/22/20 [History] Azelastine/Fluticasone [Azelastin-Flutic 137-50Mcg Spr] 1 spray NASBOTH BID 06/05 [History] Calcium Citrate/Vitamin D3 [Calcium Citrate - Vit D Caplet] 1 tab PO BIDMEALS [History] Cholecalciferol (Vitamin D3) [Vitamin D3] 1 cap PO DAILY 02/22/20 [History] Docusate Sodium [Dss] 1 tab PO DAILY 02/22/20 [History] Ertapenem [INVanz] 1 gm IV DAILY 02/22/20 [History] Ezetimibe 10 mg PO DAILY 02/22/20 [History] Fluticasone/Vilanterol [Breo Ellipta 200-25 MCG Inhalation Kit] 1 puff INH DAILY 02/22/20 [History] HCTZ/Triamterene [Maxzide 25-37.5 MG] 1 tab PO DAILY 02/22/20 [History] Heparin Sodium [Heparin Lock Flush] 300 unit IV ASDIRECTED 02/22/20 [History] Metoprolol Tartrate 50 mg PO Q12HR 02/22/20 [History] Metoprolol Tartrate [Lopressor] 50 mg PO Q12HR 02/22/20 [History] Multivitamin 1 tab PO DAILY 02/22/20 [History] Nitroglycerin [Nitrostat] 0.4 mg SL ASDIRECTED PRN 02/22/20 [History] Tiotropium [place] [Spiriva Respimat] 2 puff INH DAILY 02/22/20 [History] atorvaSTATin [Lipitor] 40 mg PO BEDTIME 02/22/20 [History] Aspirin 325 mg PO WITHBREAKFAST tablet 03/12/20 [Rx] Docusate Sodium [Colace] 200 mg PO DAILY PRN cap 03/12/20 [Rx] Ertapenem [INVanz] 1 gm IV DAILY vial 03/12/20 [Rx] Insulin Glarg,Human.Rec.Analog [Lantus] 10 unit SUBCUT BID ml 03/12/20 [Rx] Insulin Lispro [HumaLOG] 0 unit SUBCUT QIDACANDBED vial 03/12/20 [Rx] Magnesium Hydroxide [Milk of Magnesia] 30 ml PO DAILY PRN cup 03/12/20 [Rx] Sodium Chloride 0.9% [Saline Flush] 10 ml FLUSH ASDIRECTED PRN syringe [Rx] Vancomycin 1 gm IV Q24H sdv 03/12/20 [Rx] metFORMIN [Glucophage] 500 mg PO BIDMEALS tablet 03/12/20 [Rx] Oxygen Therapy Mode: Room Air Patient Handouts: Heart Failure, Self Care, [id number], Osteomyelitis, Adult - Discharge Summary/Plan Comment DC Time >30 min.: Yes (Coordination of care ) Discharge Summary/Plan Comment: As above. Extensive precautions were given to the patient, who is in agreement with the treatment plan. See Patient Instructions for further treatment and plan. - General Info Date of Service: 03/12/20 Admission Dx/Problem (Free Text: Admission Diagnosis/Problem Admission Diagnosis/Problem Osteomyelitis of toe of left foot Functional Status: Reports: Pain Controlled, Tolerating Diet, Ambulating, Urinating, Incentive Spirometry. Denies: New Symptoms Numeric/FACES Score: 0 - Review of Systems General: Reports: No Symptoms. Denies: Fever, Weakness, Fatigue, Malaise, Chills, Night Sweats HEENT: Reports: Glasses. Denies: Dysphasia, Ear Pain, Eye Pain, Headaches, Post Nasal Drip, Sinus Congestion, Sore Throat, Rhinitis, Visual Changes Pulmonary: Reports: No Symptoms. Denies: Shortness of Breath, Pleuritic Chest Pain, Sputum, Hemoptysis, Wheezing Cardiovascular: Reports: No Symptoms. Denies: Chest Pain, Palpitations, Dyspnea on Exertion, Orthopnea, Edema, Lightheadedness Gastrointestinal: Reports: No Symptoms, Other (Normal bowel movement earlier this morning). Denies: Abdominal Pain, Constipation, Decreased Appetite, Diarrhea, Difficulty Swallowing, Flatus, Hematochezia, Melena, Nausea, Vomiting Genitourinary: Reports: No Symptoms. Denies: Dysuria, Frequency, Burning, Pain , Urgency, Incontinence, Retention, Flank Pain Musculoskeletal: Reports: No Symptoms. Denies: Neck Pain, Shoulder Pain, Arm Pain, Hand Pain, Back Pain, Leg Pain, Foot Pain, Joint Pain, Joint Swelling Skin: Reports: No Symptoms. Denies: Diaphoresis, Bruising, Pruritis Neurological: Reports: Confusion (Borderline), Difficulty Walking (However good control with walker use). Denies: Dizziness, Numbness, Paresthesia, Pre- Existing Deficit, Syncope, Tingling, Weakness, Change in Speech, Gait Disturbance Psychiatric: Reports: Confusion (As above). Denies: Depression, Anxiety, Agitation, Cravings, Hallucinations - Patient Data Vitals - Most Recent: Last Vital Signs Temp 36.8 C 03/11/20 19:32 Pulse 80 03/12/20 08:14 Resp 16 03/11/20 19:32 BP 119/54 L 03/12/20 08:14 Pulse Ox 95 03/11/20 19:32 Vital Signs - 24 hr 03/11/20 03/11/20 03/12/20 19:11 19:32 08:14 Temperature [ 36.8 C Temporal] Pulse, 79 80 Peripheral Pulse, 79 Peripheral [ Pulse Oximetry] Respiratory 16 Rate Blood Pressure 127/66 119/54 L Blood Pressure 127/56 L [Left Upper Arm ] O2 Sat by Pulse 95 Oximetry Weight - Most Recent: 58.468 kg I&O - Last 24 hours: Intake & Output 03/11/20 03/12/20 03/12/20 22:59 06:59 14:59 Intake Total 100 Balance 100 Imaging Impressions - Last 24 hrs: None Lab Results - Last 24 hrs: Laboratory Results - last 24 hr 03/11/20 03/11/20 03/11/20 Range/Units 11:04 17:15 21:54 POC Glucose 185 H 271 H* 190 H (65-110) mg/dl 03/12/20 Range/Units 07:31 POC Glucose 154 H (65-110) mg/dl Laboratory Tests 02/22/20 02/22/20 02/22/20 Range/Units 17:27 20:49 22:23 WBC (4.0-10.2) K/uL RBC (4.33-5.41) M/uL Hgb (13.1-16.8) g/dL Hct (39.0-49.0) % MCV (84.0-98.0) fL MCH (28.2-33.3) pg MCHC (31.7-36.0) g/dL RDW (11.2-14.1) % Plt Count (150-350) K/uL Neut % (Auto) (45.0-80.0) % Lymph % (Auto) (10.0-50.0) % Andrews % (Auto) (2.0-14.0) % Eos % (Auto) (0.0-5.0) % Baso % (Auto) (0.0-2.0) % Neut # (Auto) (1.40-7.00) K/uL Lymph # (Auto) (0.50-3.50) K/uL Andrews # (Auto) (0.00-1.00) K/uL Eos # (Auto) (0.00-0.50) K/uL Baso # (Auto) (0.00-0.20) K/uL ESR (0-20) mm/hr Sodium (136-145) mmol/L Potassium (3.5-5.1) mmol/L Chloride (98-107) mmol/L Carbon Dioxide (21.0-32.0) mmol/L BUN (7-18) mg/dL Creatinine (0.51-1.17) mg/dL Est Cr Clr Drug Dosing mL/min Estimated GFR (MDRD) mL/min Glucose (74-106) mg/dL POC Glucose 252 H* 431 H* 332 H* (65-110) mg/dl Calcium (8.5-10.1) mg/dL Magnesium (1.8-2.4) mg/dL Total Bilirubin (0.2-1.0) mg/dL AST (15-37) U/L ALT (12-78) U/L Alkaline Phosphatase (46-116) IU/L C-Reactive Protein (<=0.9) mg/dL NT-Pro-B Natriuret Pep (0-125) pg/mL Total Protein (6.4-8.2) g/dL Albumin (3.4-5.0) g/dL Specimen Type Urine Color Urine Appearance Urine pH (5.0-9.0) Ur Specific [place] (1.005-1.030) Urine Protein (NEGATIVE) mg/dL Urine Glucose (UA) (NEGATIVE) mg/dL Urine Ketones (NEGATIVE) mg/dL Urine Occult Blood (NEGATIVE) Urine Nitrite (NEGATIVE) Urine Bilirubin (NEGATIVE) Urine Urobilinogen (0.2-1.0) E.U./dL Ur Leukocyte Esterase (NEGATIVE) Urine RBC /HPF Urine WBC /HPF Ur Epithelial Cells /LPF Other Crystals /HPF Amorphous Sediment (0/HPF) /HPF Urine Bacteria (NONE TO FEW) /HPF Urinalysis Comment Vancomycin Trough (10-20) ug/mL COVID-19 PCR (NOT DETECT) 02/23/20 02/23/20 02/23/20 Range/Units 07:23 07:42 11:39 WBC (4.0-10.2) K/uL RBC (4.33-5.41) M/uL Hgb (13.1-16.8) g/dL Hct (39.0-49.0) % MCV (84.0-98.0) fL MCH (28.2-33.3) pg MCHC (31.7-36.0) g/dL RDW (11.2-14.1) % Plt Count (150-350) K/uL Neut % (Auto) (45.0-80.0) % Lymph % (Auto) (10.0-50.0) % Andrews % (Auto) (2.0-14.0) % Eos % (Auto) (0.0-5.0) % Baso % (Auto) (0.0-2.0) % Neut # (Auto) (1.40-7.00) K/uL Lymph # (Auto) (0.50-3.50) K/uL Andrews # (Auto) (0.00-1.00) K/uL Eos # (Auto) (0.00-0.50) K/uL Baso # (Auto) (0.00-0.20) K/uL ESR (0-20) mm/hr Sodium (136-145) mmol/L Potassium (3.5-5.1) mmol/L Chloride (98-107) mmol/L Carbon Dioxide (21.0-32.0) mmol/L BUN (7-18) mg/dL Creatinine (0.51-1.17) mg/dL Est Cr Clr Drug Dosing mL/min Estimated GFR (MDRD) mL/min Glucose (74-106) mg/dL POC Glucose 132 H 258 H* (65-110) mg/dl Calcium (8.5-10.1) mg/dL Magnesium (1.8-2.4) mg/dL Total Bilirubin (0.2-1.0) mg/dL AST (15-37) U/L ALT (12-78) U/L Alkaline Phosphatase (46-116) IU/L C-Reactive Protein (<=0.9) mg/dL NT-Pro-B Natriuret Pep (0-125) pg/mL Total Protein (6.4-8.2) g/dL Albumin (3.4-5.0) g/dL Specimen Type Urine Color Urine Appearance Urine pH (5.0-9.0) Ur Specific [place] (1.005-1.030) Urine Protein (NEGATIVE) mg/dL Urine Glucose (UA) (NEGATIVE) mg/dL Urine Ketones (NEGATIVE) mg/dL Urine Occult Blood (NEGATIVE) Urine Nitrite (NEGATIVE) Urine Bilirubin (NEGATIVE) Urine Urobilinogen (0.2-1.0) E.U./dL Ur Leukocyte Esterase (NEGATIVE) Urine RBC /HPF Urine WBC /HPF Ur Epithelial Cells /LPF Other Crystals /HPF Amorphous Sediment (0/HPF) /HPF Urine Bacteria (NONE TO FEW) /HPF Urinalysis Comment Vancomycin Trough 17.9 (10-20) ug/mL COVID-19 PCR (NOT DETECT) 02/23/20 02/23/20 02/23/20 Range/Units 14:04 15:16 15:16 WBC 8.8 (4.0-10.2) K/uL RBC 2.81 L (4.33-5.41) M/uL Hgb 8.6 L D (13.1-16.8) g/dL Hct 26.8 L (39.0-49.0) % MCV 95.4 D (84.0-98.0) fL MCH 30.6 (28.2-33.3) pg MCHC 32.1 (31.7-36.0) g/dL RDW 13.8 (11.2-14.1) % Plt Count 247 (150-350) K/uL Neut % (Auto) 76.3 (45.0-80.0) % Lymph % (Auto) 8.8 L (10.0-50.0) % Andrews % (Auto) 14.7 H (2.0-14.0) % Eos % (Auto) 0.1 (0.0-5.0) % Baso % (Auto) 0.1 (0.0-2.0) % Neut # (Auto) 6.74 (1.40-7.00) K/uL Lymph # (Auto) 0.78 (0.50-3.50) K/uL Andrews # (Auto) 1.30 H (0.00-1.00) K/uL Eos # (Auto) 0.01 (0.00-0.50) K/uL Baso # (Auto) 0.01 (0.00-0.20) K/uL ESR (0-20) mm/hr Sodium 141 D (136-145) mmol/L Potassium 4.3 (3.5-5.1) mmol/L Chloride 107 (98-107) mmol/L Carbon Dioxide 24.4 (21.0-32.0) mmol/L BUN 37 H (7-18) mg/dL Creatinine 0.95 (0.51-1.17) mg/dL Est Cr Clr Drug Dosing 49.91 mL/min Estimated GFR (MDRD) > 60 mL/min Glucose 57 L (74-106) mg/dL POC Glucose (65-110) mg/dl Calcium 9.1 (8.5-10.1) mg/dL Magnesium 1.8 (1.8-2.4) mg/dL Total Bilirubin 0.4 (0.2-1.0) mg/dL AST 29 (15-37) U/L ALT 33 (12-78) U/L Alkaline Phosphatase 88 (46-116) IU/L C-Reactive Protein (<=0.9) mg/dL NT-Pro-B Natriuret Pep 5574 H (0-125) pg/mL Total Protein 6.1 L (6.4-8.2) g/dL Albumin 2.4 L (3.4-5.0) g/dL Specimen Type Urinblad Urine Color Yellow Urine Appearance Clear Urine pH 5.5 (5.0-9.0) Ur Specific [place] 1.025 (1.005-1.030) Urine Protein Trace H (NEGATIVE) mg/dL Urine Glucose (UA) Negative (NEGATIVE) mg/dL Urine Ketones Negative (NEGATIVE) mg/dL Urine Occult Blood Moderate H (NEGATIVE) Urine Nitrite Negative (NEGATIVE) Urine Bilirubin Negative (NEGATIVE) Urine Urobilinogen 0.2 (0.2-1.0) E.U./dL Ur Leukocyte Esterase Negative (NEGATIVE) Urine RBC 10-20 H /HPF Urine WBC 0-5 /HPF Ur Epithelial Cells Few /LPF Other Crystals /HPF Amorphous Sediment Many H (0/HPF) /HPF Urine Bacteria Moderate H (NONE TO FEW) /HPF Urinalysis Comment Vancomycin Trough (10-20) ug/mL COVID-19 PCR (NOT DETECT) 02/23/20 02/23/20 02/23/20 Range/Units 15:49 17:10 21:04 WBC (4.0-10.2) K/uL RBC (4.33-5.41) M/uL Hgb (13.1-16.8) g/dL Hct (39.0-49.0) % MCV (84.0-98.0) fL MCH (28.2-33.3) pg MCHC (31.7-36.0) g/dL RDW (11.2-14.1) % Plt Count (150-350) K/uL Neut % (Auto) (45.0-80.0) % Lymph % (Auto) (10.0-50.0) % Andrews % (Auto) (2.0-14.0) % Eos % (Auto) (0.0-5.0) % Baso % (Auto) (0.0-2.0) % Neut # (Auto) (1.40-7.00) K/uL Lymph # (Auto) (0.50-3.50) K/uL Andrews # (Auto) (0.00-1.00) K/uL Eos # (Auto) (0.00-0.50) K/uL Baso # (Auto) (0.00-0.20) K/uL ESR (0-20) mm/hr Sodium (136-145) mmol/L Potassium (3.5-5.1) mmol/L Chloride (98-107) mmol/L Carbon Dioxide (21.0-32.0) mmol/L BUN (7-18) mg/dL Creatinine (0.51-1.17) mg/dL Est Cr Clr Drug Dosing mL/min Estimated GFR (MDRD) mL/min Glucose (74-106) mg/dL POC Glucose 61 L 127 H 304 H* (65-110) mg/dl Calcium (8.5-10.1) mg/dL Magnesium (1.8-2.4) mg/dL Total Bilirubin (0.2-1.0) mg/dL AST (15-37) U/L ALT (12-78) U/L Alkaline Phosphatase (46-116) IU/L C-Reactive Protein (<=0.9) mg/dL NT-Pro-B Natriuret Pep (0-125) pg/mL Total Protein (6.4-8.2) g/dL Albumin (3.4-5.0) g/dL Specimen Type Urine Color Urine Appearance Urine pH (5.0-9.0) Ur Specific [place] (1.005-1.030) Urine Protein (NEGATIVE) mg/dL Urine Glucose (UA) (NEGATIVE) mg/dL Urine Ketones (NEGATIVE) mg/dL Urine Occult Blood (NEGATIVE) Urine Nitrite (NEGATIVE) Urine Bilirubin (NEGATIVE) Urine Urobilinogen (0.2-1.0) E.U./dL Ur Leukocyte Esterase (NEGATIVE) Urine RBC /HPF Urine WBC /HPF Ur Epithelial Cells /LPF Other Crystals /HPF Amorphous Sediment (0/HPF) /HPF Urine Bacteria (NONE TO FEW) /HPF Urinalysis Comment Vancomycin Trough (10-20) ug/mL COVID-19 PCR (NOT DETECT) 02/24/20 02/24/20 02/24/20 Range/Units 08:00 08:15 11:43 WBC (4.0-10.2) K/uL RBC (4.33-5.41) M/uL Hgb (13.1-16.8) g/dL Hct (39.0-49.0) % MCV (84.0-98.0) fL MCH (28.2-33.3) pg MCHC (31.7-36.0) g/dL RDW (11.2-14.1) % Plt Count (150-350) K/uL Neut % (Auto) (45.0-80.0) % Lymph % (Auto) (10.0-50.0) % Andrews % (Auto) (2.0-14.0) % Eos % (Auto) (0.0-5.0) % Baso % (Auto) (0.0-2.0) % Neut # (Auto) (1.40-7.00) K/uL Lymph # (Auto) (0.50-3.50) K/uL Andrews # (Auto) (0.00-1.00) K/uL Eos # (Auto) (0.00-0.50) K/uL Baso # (Auto) (0.00-0.20) K/uL ESR (0-20) mm/hr Sodium (136-145) mmol/L Potassium (3.5-5.1) mmol/L Chloride (98-107) mmol/L Carbon Dioxide (21.0-32.0) mmol/L BUN (7-18) mg/dL Creatinine (0.51-1.17) mg/dL Est Cr Clr Drug Dosing mL/min Estimated GFR (MDRD) mL/min Glucose (74-106) mg/dL POC Glucose 87 99 133 H (65-110) mg/dl Calcium (8.5-10.1) mg/dL Magnesium (1.8-2.4) mg/dL Total Bilirubin (0.2-1.0) mg/dL AST (15-37) U/L ALT (12-78) U/L Alkaline Phosphatase (46-116) IU/L C-Reactive Protein (<=0.9) mg/dL NT-Pro-B Natriuret Pep (0-125) pg/mL Total Protein (6.4-8.2) g/dL Albumin (3.4-5.0) g/dL Specimen Type Urine Color Urine Appearance Urine pH (5.0-9.0) Ur Specific Putnam (1.005-1.030) Urine Protein (NEGATIVE) mg/dL Urine Glucose (UA) (NEGATIVE) mg/dL Urine Ketones (NEGATIVE) mg/dL Urine Occult Blood (NEGATIVE) Urine Nitrite (NEGATIVE) Urine Bilirubin (NEGATIVE) Urine Urobilinogen (0.2-1.0) E.U./dL Ur Leukocyte Esterase (NEGATIVE) Urine RBC /HPF Urine WBC /HPF Ur Epithelial Cells /LPF Other Crystals /HPF Amorphous Sediment (0/HPF) /HPF Urine Bacteria (NONE TO FEW) /HPF Urinalysis Comment Vancomycin Trough (10-20) ug/mL COVID-19 PCR (NOT DETECT) 02/24/20 02/24/20 02/25/20 Range/Units 16:57 20:34 07:11 WBC (4.0-10.2) K/uL RBC (4.33-5.41) M/uL Hgb (13.1-16.8) g/dL Hct (39.0-49.0) % MCV (84.0-98.0) fL MCH (28.2-33.3) pg MCHC (31.7-36.0) g/dL RDW (11.2-14.1) % Plt Count (150-350) K/uL Neut % (Auto) (45.0-80.0) % Lymph % (Auto) (10.0-50.0) % Andrews % (Auto) (2.0-14.0) % Eos % (Auto) (0.0-5.0) % Baso % (Auto) (0.0-2.0) % Neut # (Auto) (1.40-7.00) K/uL Lymph # (Auto) (0.50-3.50) K/uL Andrews # (Auto) (0.00-1.00) K/uL Eos # (Auto) (0.00-0.50) K/uL Baso # (Auto) (0.00-0.20) K/uL ESR (0-20) mm/hr Sodium (136-145) mmol/L Potassium (3.5-5.1) mmol/L Chloride (98-107) mmol/L Carbon Dioxide (21.0-32.0) mmol/L BUN (7-18) mg/dL Creatinine (0.51-1.17) mg/dL Est Cr Clr Drug Dosing mL/min Estimated GFR (MDRD) mL/min Glucose (74-106) mg/dL POC Glucose 139 H 209 H 86 (65-110) mg/dl Calcium (8.5-10.1) mg/dL Magnesium (1.8-2.4) mg/dL Total Bilirubin (0.2-1.0) mg/dL AST (15-37) U/L ALT (12-78) U/L Alkaline Phosphatase (46-116) IU/L C-Reactive Protein (<=0.9) mg/dL NT-Pro-B Natriuret Pep (0-125) pg/mL Total Protein (6.4-8.2) g/dL Albumin (3.4-5.0) g/dL Specimen Type Urine Color Urine Appearance Urine pH (5.0-9.0) Ur Specific [place] (1.005-1.030) Urine Protein (NEGATIVE) mg/dL Urine Glucose (UA) (NEGATIVE) mg/dL Urine Ketones (NEGATIVE) mg/dL Urine Occult Blood (NEGATIVE) Urine Nitrite (NEGATIVE) Urine Bilirubin (NEGATIVE) Urine Urobilinogen (0.2-1.0) E.U./dL Ur Leukocyte Esterase (NEGATIVE) Urine RBC /HPF Urine WBC /HPF Ur Epithelial Cells /LPF Other Crystals /HPF Amorphous Sediment (0/HPF) /HPF Urine Bacteria (NONE TO FEW) /HPF Urinalysis Comment Vancomycin Trough (10-20) ug/mL COVID-19 PCR (NOT DETECT) 02/25/20 02/25/20 02/25/20 Range/Units 07:30 07:30 07:30 WBC 6.4 (4.0-10.2) K/uL RBC 2.96 L (4.33-5.41) M/uL Hgb 8.8 L (13.1-16.8) g/dL Hct 28.0 L (39.0-49.0) % MCV 94.6 (84.0-98.0) fL MCH 29.7 (28.2-33.3) pg MCHC 31.4 L (31.7-36.0) g/dL RDW 13.5 (11.2-14.1) % Plt Count 246 (150-350) K/uL Neut % (Auto) 67.1 (45.0-80.0) % Lymph % (Auto) 16.3 (10.0-50.0) % Andrews % (Auto) 15.0 H (2.0-14.0) % Eos % (Auto) 1.4 (0.0-5.0) % Baso % (Auto) 0.2 (0.0-2.0) % Neut # (Auto) 4.28 (1.40-7.00) K/uL Lymph # (Auto) 1.04 (0.50-3.50) K/uL Andrews # (Auto) 0.96 (0.00-1.00) K/uL Eos # (Auto) 0.09 (0.00-0.50) K/uL Baso # (Auto) 0.01 (0.00-0.20) K/uL ESR 66 H (0-20) mm/hr Sodium 140 (136-145) mmol/L Potassium 4.1 (3.5-5.1) mmol/L Chloride 105 (98-107) mmol/L Carbon Dioxide 26.5 (21.0-32.0) mmol/L BUN 27 H (7-18) mg/dL Creatinine 0.90 (0.51-1.17) mg/dL Est Cr Clr Drug Dosing 56.86 mL/min Estimated GFR (MDRD) > 60 mL/min Glucose 84 (74-106) mg/dL POC Glucose (65-110) mg/dl Calcium 9.1 (8.5-10.1) mg/dL Magnesium (1.8-2.4) mg/dL Total Bilirubin (0.2-1.0) mg/dL AST (15-37) U/L ALT 38 (12-78) U/L Alkaline Phosphatase (46-116) IU/L C-Reactive Protein 5.7 H (<=0.9) mg/dL NT-Pro-B Natriuret Pep (0-125) pg/mL Total Protein (6.4-8.2) g/dL Albumin (3.4-5.0) g/dL Specimen Type Urine Color Urine Appearance Urine pH (5.0-9.0) Ur Specific [place] (1.005-1.030) Urine Protein (NEGATIVE) mg/dL Urine Glucose (UA) (NEGATIVE) mg/dL Urine Ketones (NEGATIVE) mg/dL Urine Occult Blood (NEGATIVE) Urine Nitrite (NEGATIVE) Urine Bilirubin (NEGATIVE) Urine Urobilinogen (0.2-1.0) E.U./dL Ur Leukocyte Esterase (NEGATIVE) Urine RBC /HPF Urine WBC /HPF Ur Epithelial Cells /LPF Other Crystals /HPF Amorphous Sediment (0/HPF) /HPF Urine Bacteria (NONE TO FEW) /HPF Urinalysis Comment Vancomycin Trough 19.5 (10-20) ug/mL COVID-19 PCR (NOT DETECT) 02/25/20 02/25/20 02/25/20 Range/Units 11:37 16:56 20:19 WBC (4.0-10.2) K/uL RBC (4.33-5.41) M/uL Hgb (13.1-16.8) g/dL Hct (39.0-49.0) % MCV (84.0-98.0) fL MCH (28.2-33.3) pg MCHC (31.7-36.0) g/dL RDW (11.2-14.1) % Plt Count (150-350) K/uL Neut % (Auto) (45.0-80.0) % Lymph % (Auto) (10.0-50.0) % Andrews % (Auto) (2.0-14.0) % Eos % (Auto) (0.0-5.0) % Baso % (Auto) (0.0-2.0) % Neut # (Auto) (1.40-7.00) K/uL Lymph # (Auto) (0.50-3.50) K/uL Andrews # (Auto) (0.00-1.00) K/uL Eos # (Auto) (0.00-0.50) K/uL Baso # (Auto) (0.00-0.20) K/uL ESR (0-20) mm/hr Sodium (136-145) mmol/L Potassium (3.5-5.1) mmol/L Chloride (98-107) mmol/L Carbon Dioxide (21.0-32.0) mmol/L BUN (7-18) mg/dL Creatinine (0.51-1.17) mg/dL Est Cr Clr Drug Dosing mL/min Estimated GFR (MDRD) mL/min Glucose (74-106) mg/dL POC Glucose 133 H 328 H* 181 H (65-110) mg/dl Calcium (8.5-10.1) mg/dL Magnesium (1.8-2.4) mg/dL Total Bilirubin (0.2-1.0) mg/dL AST (15-37) U/L ALT (12-78) U/L Alkaline Phosphatase (46-116) IU/L C-Reactive Protein (<=0.9) mg/dL NT-Pro-B Natriuret Pep (0-125) pg/mL Total Protein (6.4-8.2) g/dL Albumin (3.4-5.0) g/dL Specimen Type Urine Color Urine Appearance Urine pH (5.0-9.0) Ur Specific [place] (1.005-1.030) Urine Protein (NEGATIVE) mg/dL Urine Glucose (UA) (NEGATIVE) mg/dL Urine Ketones (NEGATIVE) mg/dL Urine Occult Blood (NEGATIVE) Urine Nitrite (NEGATIVE) Urine Bilirubin (NEGATIVE) Urine Urobilinogen (0.2-1.0) E.U./dL Ur Leukocyte Esterase (NEGATIVE) Urine RBC /HPF Urine WBC /HPF Ur Epithelial Cells /LPF Other Crystals /HPF Amorphous Sediment (0/HPF) /HPF Urine Bacteria (NONE TO FEW) /HPF Urinalysis Comment Vancomycin Trough (10-20) ug/mL COVID-19 PCR (NOT DETECT) 02/26/20 02/26/20 02/26/20 Range/Units 06:59 10:15 11:35 WBC (4.0-10.2) K/uL RBC (4.33-5.41) M/uL Hgb (13.1-16.8) g/dL Hct (39.0-49.0) % MCV (84.0-98.0) fL MCH (28.2-33.3) pg MCHC (31.7-36.0) g/dL RDW (11.2-14.1) % Plt Count (150-350) K/uL Neut % (Auto) (45.0-80.0) % Lymph % (Auto) (10.0-50.0) % Andrews % (Auto) (2.0-14.0) % Eos % (Auto) (0.0-5.0) % Baso % (Auto) (0.0-2.0) % Neut # (Auto) (1.40-7.00) K/uL Lymph # (Auto) (0.50-3.50) K/uL Andrews # (Auto) (0.00-1.00) K/uL Eos # (Auto) (0.00-0.50) K/uL Baso # (Auto) (0.00-0.20) K/uL ESR (0-20) mm/hr Sodium (136-145) mmol/L Potassium (3.5-5.1) mmol/L Chloride (98-107) mmol/L Carbon Dioxide (21.0-32.0) mmol/L BUN (7-18) mg/dL Creatinine (0.51-1.17) mg/dL Est Cr Clr Drug Dosing mL/min Estimated GFR (MDRD) mL/min Glucose (74-106) mg/dL POC Glucose 137 H 165 H (65-110) mg/dl Calcium (8.5-10.1) mg/dL Magnesium (1.8-2.4) mg/dL Total Bilirubin (0.2-1.0) mg/dL AST (15-37) U/L ALT (12-78) U/L Alkaline Phosphatase (46-116) IU/L C-Reactive Protein (<=0.9) mg/dL NT-Pro-B Natriuret Pep (0-125) pg/mL Total Protein (6.4-8.2) g/dL Albumin (3.4-5.0) g/dL Specimen Type Urine Color Urine Appearance Urine pH (5.0-9.0) Ur Specific [place] (1.005-1.030) Urine Protein (NEGATIVE) mg/dL Urine Glucose (UA) (NEGATIVE) mg/dL Urine Ketones (NEGATIVE) mg/dL Urine Occult Blood (NEGATIVE) Urine Nitrite (NEGATIVE) Urine Bilirubin (NEGATIVE) Urine Urobilinogen (0.2-1.0) E.U./dL Ur Leukocyte Esterase (NEGATIVE) Urine RBC /HPF Urine WBC /HPF Ur Epithelial Cells /LPF Other Crystals /HPF Amorphous Sediment (0/HPF) /HPF Urine Bacteria (NONE TO FEW) /HPF Urinalysis Comment Vancomycin Trough (10-20) ug/mL COVID-19 PCR Not detected (NOT DETECT) 02/26/20 02/26/20 02/27/20 Range/Units 17:19 20:26 07:29 WBC (4.0-10.2) K/uL RBC (4.33-5.41) M/uL Hgb (13.1-16.8) g/dL Hct (39.0-49.0) % MCV (84.0-98.0) fL MCH (28.2-33.3) pg MCHC (31.7-36.0) g/dL RDW (11.2-14.1) % Plt Count (150-350) K/uL Neut % (Auto) (45.0-80.0) % Lymph % (Auto) (10.0-50.0) % Andrews % (Auto) (2.0-14.0) % Eos % (Auto) (0.0-5.0) % Baso % (Auto) (0.0-2.0) % Neut # (Auto) (1.40-7.00) K/uL Lymph # (Auto) (0.50-3.50) K/uL Andrews # (Auto) (0.00-1.00) K/uL Eos # (Auto) (0.00-0.50) K/uL Baso # (Auto) (0.00-0.20) K/uL ESR (0-20) mm/hr Sodium (136-145) mmol/L Potassium (3.5-5.1) mmol/L Chloride (98-107) mmol/L Carbon Dioxide (21.0-32.0) mmol/L BUN (7-18) mg/dL Creatinine (0.51-1.17) mg/dL Est Cr Clr Drug Dosing mL/min Estimated GFR (MDRD) mL/min Glucose (74-106) mg/dL POC Glucose 160 H 121 H 211 H (65-110) mg/dl Calcium (8.5-10.1) mg/dL Magnesium (1.8-2.4) mg/dL Total Bilirubin (0.2-1.0) mg/dL AST (15-37) U/L ALT (12-78) U/L Alkaline Phosphatase (46-116) IU/L C-Reactive Protein (<=0.9) mg/dL NT-Pro-B Natriuret Pep (0-125) pg/mL Total Protein (6.4-8.2) g/dL Albumin (3.4-5.0) g/dL Specimen Type Urine Color Urine Appearance Urine pH (5.0-9.0) Ur Specific [place] (1.005-1.030) Urine Protein (NEGATIVE) mg/dL Urine Glucose (UA) (NEGATIVE) mg/dL Urine Ketones (NEGATIVE) mg/dL Urine Occult Blood (NEGATIVE) Urine Nitrite (NEGATIVE) Urine Bilirubin (NEGATIVE) Urine Urobilinogen (0.2-1.0) E.U./dL Ur Leukocyte Esterase (NEGATIVE) Urine RBC /HPF Urine WBC /HPF Ur Epithelial Cells /LPF Other Crystals /HPF Amorphous Sediment (0/HPF) /HPF Urine Bacteria (NONE TO FEW) /HPF Urinalysis Comment Vancomycin Trough (10-20) ug/mL COVID-19 PCR (NOT DETECT) 02/27/20 02/27/20 02/27/20 Range/Units 07:52 11:43 17:28 WBC (4.0-10.2) K/uL RBC (4.33-5.41) M/uL Hgb (13.1-16.8) g/dL Hct (39.0-49.0) % MCV (84.0-98.0) fL MCH (28.2-33.3) pg MCHC (31.7-36.0) g/dL RDW (11.2-14.1) % Plt Count (150-350) K/uL Neut % (Auto) (45.0-80.0) % Lymph % (Auto) (10.0-50.0) % Andrews % (Auto) (2.0-14.0) % Eos % (Auto) (0.0-5.0) % Baso % (Auto) (0.0-2.0) % Neut # (Auto) (1.40-7.00) K/uL Lymph # (Auto) (0.50-3.50) K/uL Andrews # (Auto) (0.00-1.00) K/uL Eos # (Auto) (0.00-0.50) K/uL Baso # (Auto) (0.00-0.20) K/uL ESR (0-20) mm/hr Sodium (136-145) mmol/L Potassium (3.5-5.1) mmol/L Chloride (98-107) mmol/L Carbon Dioxide (21.0-32.0) mmol/L BUN (7-18) mg/dL Creatinine (0.51-1.17) mg/dL Est Cr Clr Drug Dosing mL/min Estimated GFR (MDRD) mL/min Glucose (74-106) mg/dL POC Glucose 78 210 H (65-110) mg/dl Calcium (8.5-10.1) mg/dL Magnesium (1.8-2.4) mg/dL Total Bilirubin (0.2-1.0) mg/dL AST (15-37) U/L ALT (12-78) U/L Alkaline Phosphatase (46-116) IU/L C-Reactive Protein (<=0.9) mg/dL NT-Pro-B Natriuret Pep (0-125) pg/mL Total Protein (6.4-8.2) g/dL Albumin (3.4-5.0) g/dL Specimen Type Urine Color Urine Appearance Urine pH (5.0-9.0) Ur Specific [place] (1.005-1.030) Urine Protein (NEGATIVE) mg/dL Urine Glucose (UA) (NEGATIVE) mg/dL Urine Ketones (NEGATIVE) mg/dL Urine Occult Blood (NEGATIVE) Urine Nitrite (NEGATIVE) Urine Bilirubin (NEGATIVE) Urine Urobilinogen (0.2-1.0) E.U./dL Ur Leukocyte Esterase (NEGATIVE) Urine RBC /HPF Urine WBC /HPF Ur Epithelial Cells /LPF Other Crystals /HPF Amorphous Sediment (0/HPF) /HPF Urine Bacteria (NONE TO FEW) /HPF Urinalysis Comment Vancomycin Trough 13.5 (10-20) ug/mL COVID-19 PCR (NOT DETECT) 02/27/20 02/28/20 02/28/20 Range/Units 19:52 04:01 04:33 WBC (4.0-10.2) K/uL RBC (4.33-5.41) M/uL Hgb (13.1-16.8) g/dL Hct (39.0-49.0) % MCV (84.0-98.0) fL MCH (28.2-33.3) pg MCHC (31.7-36.0) g/dL RDW (11.2-14.1) % Plt Count (150-350) K/uL Neut % (Auto) (45.0-80.0) % Lymph % (Auto) (10.0-50.0) % Andrews % (Auto) (2.0-14.0) % Eos % (Auto) (0.0-5.0) % Baso % (Auto) (0.0-2.0) % Neut # (Auto) (1.40-7.00) K/uL Lymph # (Auto) (0.50-3.50) K/uL Andrews # (Auto) (0.00-1.00) K/uL Eos # (Auto) (0.00-0.50) K/uL Baso # (Auto) (0.00-0.20) K/uL ESR (0-20) mm/hr Sodium (136-145) mmol/L Potassium (3.5-5.1) mmol/L Chloride (98-107) mmol/L Carbon Dioxide (21.0-32.0) mmol/L BUN (7-18) mg/dL Creatinine (0.51-1.17) mg/dL Est Cr Clr Drug Dosing mL/min Estimated GFR (MDRD) mL/min Glucose (74-106) mg/dL POC Glucose 142 H 65 65 (65-110) mg/dl Calcium (8.5-10.1) mg/dL Magnesium (1.8-2.4) mg/dL Total Bilirubin (0.2-1.0) mg/dL AST (15-37) U/L ALT (12-78) U/L Alkaline Phosphatase (46-116) IU/L C-Reactive Protein (<=0.9) mg/dL NT-Pro-B Natriuret Pep (0-125) pg/mL Total Protein (6.4-8.2) g/dL Albumin (3.4-5.0) g/dL Specimen Type Urine Color Urine Appearance Urine pH (5.0-9.0) Ur Specific [place] (1.005-1.030) Urine Protein (NEGATIVE) mg/dL Urine Glucose (UA) (NEGATIVE) mg/dL Urine Ketones (NEGATIVE) mg/dL Urine Occult Blood (NEGATIVE) Urine Nitrite (NEGATIVE) Urine Bilirubin (NEGATIVE) Urine Urobilinogen (0.2-1.0) E.U./dL Ur Leukocyte Esterase (NEGATIVE) Urine RBC /HPF Urine WBC /HPF Ur Epithelial Cells /LPF Other Crystals /HPF Amorphous Sediment (0/HPF) /HPF Urine Bacteria (NONE TO FEW) /HPF Urinalysis Comment Vancomycin Trough (10-20) ug/mL COVID-19 PCR (NOT DETECT) 02/28/20 02/28/20 02/28/20 Range/Units 05:57 07:15 11:07 WBC (4.0-10.2) K/uL RBC (4.33-5.41) M/uL Hgb (13.1-16.8) g/dL Hct (39.0-49.0) % MCV (84.0-98.0) fL MCH (28.2-33.3) pg MCHC (31.7-36.0) g/dL RDW (11.2-14.1) % Plt Count (150-350) K/uL Neut % (Auto) (45.0-80.0) % Lymph % (Auto) (10.0-50.0) % Andrews % (Auto) (2.0-14.0) % Eos % (Auto) (0.0-5.0) % Baso % (Auto) (0.0-2.0) % Neut # (Auto) (1.40-7.00) K/uL Lymph # (Auto) (0.50-3.50) K/uL Andrews # (Auto) (0.00-1.00) K/uL Eos # (Auto) (0.00-0.50) K/uL Baso # (Auto) (0.00-0.20) K/uL ESR (0-20) mm/hr Sodium (136-145) mmol/L Potassium (3.5-5.1) mmol/L Chloride (98-107) mmol/L Carbon Dioxide (21.0-32.0) mmol/L BUN (7-18) mg/dL Creatinine (0.51-1.17) mg/dL Est Cr Clr Drug Dosing mL/min Estimated GFR (MDRD) mL/min Glucose (74-106) mg/dL POC Glucose 105 116 H 49 L* (65-110) mg/dl Calcium (8.5-10.1) mg/dL Magnesium (1.8-2.4) mg/dL Total Bilirubin (0.2-1.0) mg/dL AST (15-37) U/L ALT (12-78) U/L Alkaline Phosphatase (46-116) IU/L C-Reactive Protein (<=0.9) mg/dL NT-Pro-B Natriuret Pep (0-125) pg/mL Total Protein (6.4-8.2) g/dL Albumin (3.4-5.0) g/dL Specimen Type Urine Color Urine Appearance Urine pH (5.0-9.0) Ur Specific [place] (1.005-1.030) Urine Protein (NEGATIVE) mg/dL Urine Glucose (UA) (NEGATIVE) mg/dL Urine Ketones (NEGATIVE) mg/dL Urine Occult Blood (NEGATIVE) Urine Nitrite (NEGATIVE) Urine Bilirubin (NEGATIVE) Urine Urobilinogen (0.2-1.0) E.U./dL Ur Leukocyte Esterase (NEGATIVE) Urine RBC /HPF Urine WBC /HPF Ur Epithelial Cells /LPF Other Crystals /HPF Amorphous Sediment (0/HPF) /HPF Urine Bacteria (NONE TO FEW) /HPF Urinalysis Comment Vancomycin Trough (10-20) ug/mL COVID-19 PCR (NOT DETECT) 02/28/20 02/28/20 02/28/20 Range/Units 13:03 16:48 20:00 WBC (4.0-10.2) K/uL RBC (4.33-5.41) M/uL Hgb (13.1-16.8) g/dL Hct (39.0-49.0) % MCV (84.0-98.0) fL MCH (28.2-33.3) pg MCHC (31.7-36.0) g/dL RDW (11.2-14.1) % Plt Count (150-350) K/uL Neut % (Auto) (45.0-80.0) % Lymph % (Auto) (10.0-50.0) % Andrews % (Auto) (2.0-14.0) % Eos % (Auto) (0.0-5.0) % Baso % (Auto) (0.0-2.0) % Neut # (Auto) (1.40-7.00) K/uL Lymph # (Auto) (0.50-3.50) K/uL Andrews # (Auto) (0.00-1.00) K/uL Eos # (Auto) (0.00-0.50) K/uL Baso # (Auto) (0.00-0.20) K/uL ESR (0-20) mm/hr Sodium (136-145) mmol/L Potassium (3.5-5.1) mmol/L Chloride (98-107) mmol/L Carbon Dioxide (21.0-32.0) mmol/L BUN (7-18) mg/dL Creatinine (0.51-1.17) mg/dL Est Cr Clr Drug Dosing mL/min Estimated GFR (MDRD) mL/min Glucose (74-106) mg/dL POC Glucose 150 H 67 (65-110) mg/dl Calcium (8.5-10.1) mg/dL Magnesium (1.8-2.4) mg/dL Total Bilirubin (0.2-1.0) mg/dL AST (15-37) U/L ALT (12-78) U/L Alkaline Phosphatase (46-116) IU/L C-Reactive Protein (<=0.9) mg/dL NT-Pro-B Natriuret Pep (0-125) pg/mL Total Protein (6.4-8.2) g/dL Albumin (3.4-5.0) g/dL Specimen Type . Urine Color Yellow Urine Appearance Clear Urine pH 5.0 (5.0-9.0) Ur Specific [place]nam 1.020 (1.005-1.030) Urine Protein Negative (NEGATIVE) mg/dL Urine Glucose (UA) Negative (NEGATIVE) mg/dL Urine Ketones Negative (NEGATIVE) mg/dL Urine Occult Blood Trace-lysed H (NEGATIVE) Urine Nitrite Negative (NEGATIVE) Urine Bilirubin Negative (NEGATIVE) Urine Urobilinogen 0.2 (0.2-1.0) E.U./dL Ur Leukocyte Esterase Negative (NEGATIVE) Urine RBC 5-10 H /HPF Urine WBC 0-5 /HPF Ur Epithelial Cells Occasional /LPF Other Crystals Few /HPF Amorphous Sediment Many H (0/HPF) /HPF Urine Bacteria Many H (NONE TO FEW) /HPF Urinalysis Comment Vancomycin Trough (10-20) ug/mL COVID-19 PCR (NOT DETECT) 02/28/20 02/29/20 02/29/20 Range/Units 20:05 02:50 07:40 WBC (4.0-10.2) K/uL RBC (4.33-5.41) M/uL Hgb (13.1-16.8) g/dL Hct (39.0-49.0) % MCV (84.0-98.0) fL MCH (28.2-33.3) pg MCHC (31.7-36.0) g/dL RDW (11.2-14.1) % Plt Count (150-350) K/uL Neut % (Auto) (45.0-80.0) % Lymph % (Auto) (10.0-50.0) % Andrews % (Auto) (2.0-14.0) % Eos % (Auto) (0.0-5.0) % Baso % (Auto) (0.0-2.0) % Neut # (Auto) (1.40-7.00) K/uL Lymph # (Auto) (0.50-3.50) K/uL Andrews # (Auto) (0.00-1.00) K/uL Eos # (Auto) (0.00-0.50) K/uL Baso # (Auto) (0.00-0.20) K/uL ESR (0-20) mm/hr Sodium (136-145) mmol/L Potassium (3.5-5.1) mmol/L Chloride (98-107) mmol/L Carbon Dioxide (21.0-32.0) mmol/L BUN (7-18) mg/dL Creatinine (0.51-1.17) mg/dL Est Cr Clr Drug Dosing mL/min Estimated GFR (MDRD) mL/min Glucose (74-106) mg/dL POC Glucose 176 H 122 H (65-110) mg/dl Calcium (8.5-10.1) mg/dL Magnesium (1.8-2.4) mg/dL Total Bilirubin (0.2-1.0) mg/dL AST (15-37) U/L ALT (12-78) U/L Alkaline Phosphatase (46-116) IU/L C-Reactive Protein (<=0.9) mg/dL NT-Pro-B Natriuret Pep (0-125) pg/mL Total Protein (6.4-8.2) g/dL Albumin (3.4-5.0) g/dL Specimen Type Urine Color Urine Appearance Urine pH (5.0-9.0) Ur Specific Putnam (1.005-1.030) Urine Protein (NEGATIVE) mg/dL Urine Glucose (UA) (NEGATIVE) mg/dL Urine Ketones (NEGATIVE) mg/dL Urine Occult Blood (NEGATIVE) Urine Nitrite (NEGATIVE) Urine Bilirubin (NEGATIVE) Urine Urobilinogen (0.2-1.0) E.U./dL Ur Leukocyte Esterase (NEGATIVE) Urine RBC /HPF Urine WBC /HPF Ur Epithelial Cells /LPF Other Crystals /HPF Amorphous Sediment (0/HPF) /HPF Urine Bacteria (NONE TO FEW) /HPF Urinalysis Comment Vancomycin Trough 15.9 (10-20) ug/mL COVID-19 PCR (NOT DETECT) 02/29/20 02/29/20 02/29/20 Range/Units 07:40 07:41 11:20 WBC (4.0-10.2) K/uL RBC (4.33-5.41) M/uL Hgb (13.1-16.8) g/dL Hct (39.0-49.0) % MCV (84.0-98.0) fL MCH (28.2-33.3) pg MCHC (31.7-36.0) g/dL RDW (11.2-14.1) % Plt Count (150-350) K/uL Neut % (Auto) (45.0-80.0) % Lymph % (Auto) (10.0-50.0) % Andrews % (Auto) (2.0-14.0) % Eos % (Auto) (0.0-5.0) % Baso % (Auto) (0.0-2.0) % Neut # (Auto) (1.40-7.00) K/uL Lymph # (Auto) (0.50-3.50) K/uL Andrews # (Auto) (0.00-1.00) K/uL Eos # (Auto) (0.00-0.50) K/uL Baso # (Auto) (0.00-0.20) K/uL ESR (0-20) mm/hr Sodium (136-145) mmol/L Potassium (3.5-5.1) mmol/L Chloride (98-107) mmol/L Carbon Dioxide (21.0-32.0) mmol/L BUN (7-18) mg/dL Creatinine 0.91 (0.51-1.17) mg/dL Est Cr Clr Drug Dosing 53.37 mL/min Estimated GFR (MDRD) > 60 mL/min Glucose (74-106) mg/dL POC Glucose 153 H 157 H (65-110) mg/dl Calcium (8.5-10.1) mg/dL Magnesium (1.8-2.4) mg/dL Total Bilirubin (0.2-1.0) mg/dL AST (15-37) U/L ALT (12-78) U/L Alkaline Phosphatase (46-116) IU/L C-Reactive Protein (<=0.9) mg/dL NT-Pro-B Natriuret Pep (0-125) pg/mL Total Protein (6.4-8.2) g/dL Albumin (3.4-5.0) g/dL Specimen Type Urine Color Urine Appearance Urine pH (5.0-9.0) Ur Specific [place] (1.005-1.030) Urine Protein (NEGATIVE) mg/dL Urine Glucose (UA) (NEGATIVE) mg/dL Urine Ketones (NEGATIVE) mg/dL Urine Occult Blood (NEGATIVE) Urine Nitrite (NEGATIVE) Urine Bilirubin (NEGATIVE) Urine Urobilinogen (0.2-1.0) E.U./dL Ur Leukocyte Esterase (NEGATIVE) Urine RBC /HPF Urine WBC /HPF Ur Epithelial Cells /LPF Other Crystals /HPF Amorphous Sediment (0/HPF) /HPF Urine Bacteria (NONE TO FEW) /HPF Urinalysis Comment Vancomycin Trough (10-20) ug/mL COVID-19 PCR (NOT DETECT) 02/29/20 02/29/20 03/01/20 Range/Units 16:50 20:08 03:19 WBC (4.0-10.2) K/uL RBC (4.33-5.41) M/uL Hgb (13.1-16.8) g/dL Hct (39.0-49.0) % MCV (84.0-98.0) fL MCH (28.2-33.3) pg MCHC (31.7-36.0) g/dL RDW (11.2-14.1) % Plt Count (150-350) K/uL Neut % (Auto) (45.0-80.0) % Lymph % (Auto) (10.0-50.0) % Andrews % (Auto) (2.0-14.0) % Eos % (Auto) (0.0-5.0) % Baso % (Auto) (0.0-2.0) % Neut # (Auto) (1.40-7.00) K/uL Lymph # (Auto) (0.50-3.50) K/uL Andrews # (Auto) (0.00-1.00) K/uL Eos # (Auto) (0.00-0.50) K/uL Baso # (Auto) (0.00-0.20) K/uL ESR (0-20) mm/hr Sodium (136-145) mmol/L Potassium (3.5-5.1) mmol/L Chloride (98-107) mmol/L Carbon Dioxide (21.0-32.0) mmol/L BUN (7-18) mg/dL Creatinine (0.51-1.17) mg/dL Est Cr Clr Drug Dosing mL/min Estimated GFR (MDRD) mL/min Glucose (74-106) mg/dL POC Glucose 348 H* 340 H* 183 H (65-110) mg/dl Calcium (8.5-10.1) mg/dL Magnesium (1.8-2.4) mg/dL Total Bilirubin (0.2-1.0) mg/dL AST (15-37) U/L ALT (12-78) U/L Alkaline Phosphatase (46-116) IU/L C-Reactive Protein (<=0.9) mg/dL NT-Pro-B Natriuret Pep (0-125) pg/mL Total Protein (6.4-8.2) g/dL Albumin (3.4-5.0) g/dL Specimen Type Urine Color Urine Appearance Urine pH (5.0-9.0) Ur Specific [place] (1.005-1.030) Urine Protein (NEGATIVE) mg/dL Urine Glucose (UA) (NEGATIVE) mg/dL Urine Ketones (NEGATIVE) mg/dL Urine Occult Blood (NEGATIVE) Urine Nitrite (NEGATIVE) Urine Bilirubin (NEGATIVE) Urine Urobilinogen (0.2-1.0) E.U./dL Ur Leukocyte Esterase (NEGATIVE) Urine RBC /HPF Urine WBC /HPF Ur Epithelial Cells /LPF Other Crystals /HPF Amorphous Sediment (0/HPF) /HPF Urine Bacteria (NONE TO FEW) /HPF Urinalysis Comment Vancomycin Trough (10-20) ug/mL COVID-19 PCR (NOT DETECT) 03/01/20 03/01/20 03/01/20 Range/Units 07:23 11:32 16:52 WBC (4.0-10.2) K/uL RBC (4.33-5.41) M/uL Hgb (13.1-16.8) g/dL Hct (39.0-49.0) % MCV (84.0-98.0) fL MCH (28.2-33.3) pg MCHC (31.7-36.0) g/dL RDW (11.2-14.1) % Plt Count (150-350) K/uL Neut % (Auto) (45.0-80.0) % Lymph % (Auto) (10.0-50.0) % Andrews % (Auto) (2.0-14.0) % Eos % (Auto) (0.0-5.0) % Baso % (Auto) (0.0-2.0) % Neut # (Auto) (1.40-7.00) K/uL Lymph # (Auto) (0.50-3.50) K/uL Andrews # (Auto) (0.00-1.00) K/uL Eos # (Auto) (0.00-0.50) K/uL Baso # (Auto) (0.00-0.20) K/uL ESR (0-20) mm/hr Sodium (136-145) mmol/L Potassium (3.5-5.1) mmol/L Chloride (98-107) mmol/L Carbon Dioxide (21.0-32.0) mmol/L BUN (7-18) mg/dL Creatinine (0.51-1.17) mg/dL Est Cr Clr Drug Dosing mL/min Estimated GFR (MDRD) mL/min Glucose (74-106) mg/dL POC Glucose 222 H 280 H* 343 H* (65-110) mg/dl Calcium (8.5-10.1) mg/dL Magnesium (1.8-2.4) mg/dL Total Bilirubin (0.2-1.0) mg/dL AST (15-37) U/L ALT (12-78) U/L Alkaline Phosphatase (46-116) IU/L C-Reactive Protein (<=0.9) mg/dL NT-Pro-B Natriuret Pep (0-125) pg/mL Total Protein (6.4-8.2) g/dL Albumin (3.4-5.0) g/dL Specimen Type Urine Color Urine Appearance Urine pH (5.0-9.0) Ur Specific [place] (1.005-1.030) Urine Protein (NEGATIVE) mg/dL Urine Glucose (UA) (NEGATIVE) mg/dL Urine Ketones (NEGATIVE) mg/dL Urine Occult Blood (NEGATIVE) Urine Nitrite (NEGATIVE) Urine Bilirubin (NEGATIVE) Urine Urobilinogen (0.2-1.0) E.U./dL Ur Leukocyte Esterase (NEGATIVE) Urine RBC /HPF Urine WBC /HPF Ur Epithelial Cells /LPF Other Crystals /HPF Amorphous Sediment (0/HPF) /HPF Urine Bacteria (NONE TO FEW) /HPF Urinalysis Comment Vancomycin Trough (10-20) ug/mL COVID-19 PCR (NOT DETECT) 03/01/20 03/02/20 03/02/20 Range/Units 20:05 07:28 11:07 WBC (4.0-10.2) K/uL RBC (4.33-5.41) M/uL Hgb (13.1-16.8) g/dL Hct (39.0-49.0) % MCV (84.0-98.0) fL MCH (28.2-33.3) pg MCHC (31.7-36.0) g/dL RDW (11.2-14.1) % Plt Count (150-350) K/uL Neut % (Auto) (45.0-80.0) % Lymph % (Auto) (10.0-50.0) % Andrews % (Auto) (2.0-14.0) % Eos % (Auto) (0.0-5.0) % Baso % (Auto) (0.0-2.0) % Neut # (Auto) (1.40-7.00) K/uL Lymph # (Auto) (0.50-3.50) K/uL Andrews # (Auto) (0.00-1.00) K/uL Eos # (Auto) (0.00-0.50) K/uL Baso # (Auto) (0.00-0.20) K/uL ESR (0-20) mm/hr Sodium (136-145) mmol/L Potassium (3.5-5.1) mmol/L Chloride (98-107) mmol/L Carbon Dioxide (21.0-32.0) mmol/L BUN (7-18) mg/dL Creatinine (0.51-1.17) mg/dL Est Cr Clr Drug Dosing mL/min Estimated GFR (MDRD) mL/min Glucose (74-106) mg/dL POC Glucose 335 H* 257 H* 429 H* (65-110) mg/dl Calcium (8.5-10.1) mg/dL Magnesium (1.8-2.4) mg/dL Total Bilirubin (0.2-1.0) mg/dL AST (15-37) U/L ALT (12-78) U/L Alkaline Phosphatase (46-116) IU/L C-Reactive Protein (<=0.9) mg/dL NT-Pro-B Natriuret Pep (0-125) pg/mL Total Protein (6.4-8.2) g/dL Albumin (3.4-5.0) g/dL Specimen Type Urine Color Urine Appearance Urine pH (5.0-9.0) Ur Specific [place] (1.005-1.030) Urine Protein (NEGATIVE) mg/dL Urine Glucose (UA) (NEGATIVE) mg/dL Urine Ketones (NEGATIVE) mg/dL Urine Occult Blood (NEGATIVE) Urine Nitrite (NEGATIVE) Urine Bilirubin (NEGATIVE) Urine Urobilinogen (0.2-1.0) E.U./dL Ur Leukocyte Esterase (NEGATIVE) Urine RBC /HPF Urine WBC /HPF Ur Epithelial Cells /LPF Other Crystals /HPF Amorphous Sediment (0/HPF) /HPF Urine Bacteria (NONE TO FEW) /HPF Urinalysis Comment Vancomycin Trough (10-20) ug/mL COVID-19 PCR (NOT DETECT) 03/02/20 03/02/20 03/02/20 Range/Units 12:40 17:12 20:30 WBC (4.0-10.2) K/uL RBC (4.33-5.41) M/uL Hgb (13.1-16.8) g/dL Hct (39.0-49.0) % MCV (84.0-98.0) fL MCH (28.2-33.3) pg MCHC (31.7-36.0) g/dL RDW (11.2-14.1) % Plt Count (150-350) K/uL Neut % (Auto) (45.0-80.0) % Lymph % (Auto) (10.0-50.0) % Andrews % (Auto) (2.0-14.0) % Eos % (Auto) (0.0-5.0) % Baso % (Auto) (0.0-2.0) % Neut # (Auto) (1.40-7.00) K/uL Lymph # (Auto) (0.50-3.50) K/uL Andrews # (Auto) (0.00-1.00) K/uL Eos # (Auto) (0.00-0.50) K/uL Baso # (Auto) (0.00-0.20) K/uL ESR (0-20) mm/hr Sodium (136-145) mmol/L Potassium (3.5-5.1) mmol/L Chloride (98-107) mmol/L Carbon Dioxide (21.0-32.0) mmol/L BUN (7-18) mg/dL Creatinine (0.51-1.17) mg/dL Est Cr Clr Drug Dosing mL/min Estimated GFR (MDRD) mL/min Glucose (74-106) mg/dL POC Glucose 225 H 314 H* (65-110) mg/dl Calcium (8.5-10.1) mg/dL Magnesium (1.8-2.4) mg/dL Total Bilirubin (0.2-1.0) mg/dL AST (15-37) U/L ALT (12-78) U/L Alkaline Phosphatase (46-116) IU/L C-Reactive Protein (<=0.9) mg/dL NT-Pro-B Natriuret Pep (0-125) pg/mL Total Protein (6.4-8.2) g/dL Albumin (3.4-5.0) g/dL Specimen Type Urincc Urine Color Yellow Urine Appearance Slightly cloudy Urine pH 6.0 (5.0-9.0) Ur Specific [place] 1.015 (1.005-1.030) Urine Protein Negative (NEGATIVE) mg/dL Urine Glucose (UA) >=1000 H (NEGATIVE) mg/dL Urine Ketones Negative (NEGATIVE) mg/dL Urine Occult Blood Trace-intact H (NEGATIVE) Urine Nitrite Negative (NEGATIVE) Urine Bilirubin Negative (NEGATIVE) Urine Urobilinogen 0.2 (0.2-1.0) E.U./dL Ur Leukocyte Esterase Negative (NEGATIVE) Urine RBC 0-5 /HPF Urine WBC Not seen /HPF Ur Epithelial Cells Rare /LPF Other Crystals /HPF Amorphous Sediment (0/HPF) /HPF Urine Bacteria Not seen (NONE TO FEW) /HPF Urinalysis Comment Vancomycin Trough (10-20) ug/mL COVID-19 PCR (NOT DETECT) 03/03/20 03/03/20 03/03/20 Range/Units 03:02 07:24 07:25 WBC 7.4 (4.0-10.2) K/uL RBC 3.25 L (4.33-5.41) M/uL Hgb 9.6 L (13.1-16.8) g/dL Hct 30.2 L (39.0-49.0) % MCV 92.9 (84.0-98.0) fL MCH 29.5 (28.2-33.3) pg MCHC 31.8 (31.7-36.0) g/dL RDW 13.4 (11.2-14.1) % Plt Count 337 D (150-350) K/uL Neut % (Auto) 72.0 (45.0-80.0) % Lymph % (Auto) 17.1 (10.0-50.0) % Andrews % (Auto) 9.1 (2.0-14.0) % Eos % (Auto) 1.5 (0.0-5.0) % Baso % (Auto) 0.3 (0.0-2.0) % Neut # (Auto) 5.30 (1.40-7.00) K/uL Lymph # (Auto) 1.26 (0.50-3.50) K/uL Andrews # (Auto) 0.67 (0.00-1.00) K/uL Eos # (Auto) 0.11 (0.00-0.50) K/uL Baso # (Auto) 0.02 (0.00-0.20) K/uL ESR 38 H (0-20) mm/hr Sodium (136-145) mmol/L Potassium (3.5-5.1) mmol/L Chloride (98-107) mmol/L Carbon Dioxide (21.0-32.0) mmol/L BUN (7-18) mg/dL Creatinine (0.51-1.17) mg/dL Est Cr Clr Drug Dosing mL/min Estimated GFR (MDRD) mL/min Glucose (74-106) mg/dL POC Glucose 221 H 269 H* (65-110) mg/dl Calcium (8.5-10.1) mg/dL Magnesium (1.8-2.4) mg/dL Total Bilirubin (0.2-1.0) mg/dL AST (15-37) U/L ALT (12-78) U/L Alkaline Phosphatase (46-116) IU/L C-Reactive Protein (<=0.9) mg/dL NT-Pro-B Natriuret Pep (0-125) pg/mL Total Protein (6.4-8.2) g/dL Albumin (3.4-5.0) g/dL Specimen Type Urine Color Urine Appearance Urine pH (5.0-9.0) Ur Specific [place] (1.005-1.030) Urine Protein (NEGATIVE) mg/dL Urine Glucose (UA) (NEGATIVE) mg/dL Urine Ketones (NEGATIVE) mg/dL Urine Occult Blood (NEGATIVE) Urine Nitrite (NEGATIVE) Urine Bilirubin (NEGATIVE) Urine Urobilinogen (0.2-1.0) E.U./dL Ur Leukocyte Esterase (NEGATIVE) Urine RBC /HPF Urine WBC /HPF Ur Epithelial Cells /LPF Other Crystals /HPF Amorphous Sediment (0/HPF) /HPF Urine Bacteria (NONE TO FEW) /HPF Urinalysis Comment Vancomycin Trough (10-20) ug/mL COVID-19 PCR (NOT DETECT) 03/03/20 03/03/20 03/03/20 Range/Units 07:25 07:25 11:13 WBC (4.0-10.2) K/uL RBC (4.33-5.41) M/uL Hgb (13.1-16.8) g/dL Hct (39.0-49.0) % MCV (84.0-98.0) fL MCH (28.2-33.3) pg MCHC (31.7-36.0) g/dL RDW (11.2-14.1) % Plt Count (150-350) K/uL Neut % (Auto) (45.0-80.0) % Lymph % (Auto) (10.0-50.0) % Andrews % (Auto) (2.0-14.0) % Eos % (Auto) (0.0-5.0) % Baso % (Auto) (0.0-2.0) % Neut # (Auto) (1.40-7.00) K/uL Lymph # (Auto) (0.50-3.50) K/uL Andrews # (Auto) (0.00-1.00) K/uL Eos # (Auto) (0.00-0.50) K/uL Baso # (Auto) (0.00-0.20) K/uL ESR (0-20) mm/hr Sodium 137 (136-145) mmol/L Potassium 4.5 (3.5-5.1) mmol/L Chloride 102 (98-107) mmol/L Carbon Dioxide 27.8 (21.0-32.0) mmol/L BUN 22 H (7-18) mg/dL Creatinine 0.82 (0.51-1.17) mg/dL Est Cr Clr Drug Dosing 59.22 mL/min Estimated GFR (MDRD) > 60 mL/min Glucose 268 H (74-106) mg/dL POC Glucose 289 H* (65-110) mg/dl Calcium 8.8 (8.5-10.1) mg/dL Magnesium (1.8-2.4) mg/dL Total Bilirubin 0.4 (0.2-1.0) mg/dL AST 24 (15-37) U/L ALT 36 (12-78) U/L Alkaline Phosphatase 106 (46-116) IU/L C-Reactive Protein 0.9 (<=0.9) mg/dL NT-Pro-B Natriuret Pep (0-125) pg/mL Total Protein 6.0 L (6.4-8.2) g/dL Albumin 2.5 L (3.4-5.0) g/dL Specimen Type Urine Color Urine Appearance Urine pH (5.0-9.0) Ur Specific [place] (1.005-1.030) Urine Protein (NEGATIVE) mg/dL Urine Glucose (UA) (NEGATIVE) mg/dL Urine Ketones (NEGATIVE) mg/dL Urine Occult Blood (NEGATIVE) Urine Nitrite (NEGATIVE) Urine Bilirubin (NEGATIVE) Urine Urobilinogen (0.2-1.0) E.U./dL Ur Leukocyte Esterase (NEGATIVE) Urine RBC /HPF Urine WBC /HPF Ur Epithelial Cells /LPF Other Crystals /HPF Amorphous Sediment (0/HPF) /HPF Urine Bacteria (NONE TO FEW) /HPF Urinalysis Comment Vancomycin Trough 17.4 (10-20) ug/mL COVID-19 PCR (NOT DETECT) 03/03/20 03/04/20 03/04/20 Range/Units 20: 07:21 10:52 WBC (4.0-10.2) K/uL RBC (4.33-5.41) M/uL Hgb (13.1-16.8) g/dL Hct (39.0-49.0) % MCV (84.0-98.0) fL MCH (28.2-33.3) pg MCHC (31.7-36.0) g/dL RDW (11.2-14.1) % Plt Count (150-350) K/uL Neut % (Auto) (45.0-80.0) % Lymph % (Auto) (10.0-50.0) % Andrews % (Auto) (2.0-14.0) % Eos % (Auto) (0.0-5.0) % Baso % (Auto) (0.0-2.0) % Neut # (Auto) (1.40-7.00) K/uL Lymph # (Auto) (0.50-3.50) K/uL Andrews # (Auto) (0.00-1.00) K/uL Eos # (Auto) (0.00-0.50) K/uL Baso # (Auto) (0.00-0.20) K/uL ESR (0-20) mm/hr Sodium (136-145) mmol/L Potassium (3.5-5.1) mmol/L Chloride (98-107) mmol/L Carbon Dioxide (21.0-32.0) mmol/L BUN (7-18) mg/dL Creatinine (0.51-1.17) mg/dL Est Cr Clr Drug Dosing mL/min Estimated GFR (MDRD) mL/min Glucose (74-106) mg/dL POC Glucose 376 H* 222 H 203 H (65-110) mg/dl Calcium (8.5-10.1) mg/dL Magnesium (1.8-2.4) mg/dL Total Bilirubin (0.2-1.0) mg/dL AST (15-37) U/L ALT (12-78) U/L Alkaline Phosphatase (46-116) IU/L C-Reactive Protein (<=0.9) mg/dL NT-Pro-B Natriuret Pep (0-125) pg/mL Total Protein (6.4-8.2) g/dL Albumin (3.4-5.0) g/dL Specimen Type Urine Color Urine Appearance Urine pH (5.0-9.0) Ur Specific [place] (1.005-1.030) Urine Protein (NEGATIVE) mg/dL Urine Glucose (UA) (NEGATIVE) mg/dL Urine Ketones (NEGATIVE) mg/dL Urine Occult Blood (NEGATIVE) Urine Nitrite (NEGATIVE) Urine Bilirubin (NEGATIVE) Urine Urobilinogen (0.2-1.0) E.U./dL Ur Leukocyte Esterase (NEGATIVE) Urine RBC /HPF Urine WBC /HPF Ur Epithelial Cells /LPF Other Crystals /HPF Amorphous Sediment (0/HPF) /HPF Urine Bacteria (NONE TO FEW) /HPF Urinalysis Comment Vancomycin Trough (10-20) ug/mL COVID-19 PCR (NOT DETECT) 03/04/20 03/04/20 03/05/20 Range/Units 17:27 20:40 07:24 WBC (4.0-10.2) K/uL RBC (4.33-5.41) M/uL Hgb (13.1-16.8) g/dL Hct (39.0-49.0) % MCV (84.0-98.0) fL MCH (28.2-33.3) pg MCHC (31.7-36.0) g/dL RDW (11.2-14.1) % Plt Count (150-350) K/uL Neut % (Auto) (45.0-80.0) % Lymph % (Auto) (10.0-50.0) % Andrews % (Auto) (2.0-14.0) % Eos % (Auto) (0.0-5.0) % Baso % (Auto) (0.0-2.0) % Neut # (Auto) (1.40-7.00) K/uL Lymph # (Auto) (0.50-3.50) K/uL Andrews # (Auto) (0.00-1.00) K/uL Eos # (Auto) (0.00-0.50) K/uL Baso # (Auto) (0.00-0.20) K/uL ESR (0-20) mm/hr Sodium (136-145) mmol/L Potassium (3.5-5.1) mmol/L Chloride (98-107) mmol/L Carbon Dioxide (21.0-32.0) mmol/L BUN (7-18) mg/dL Creatinine (0.51-1.17) mg/dL Est Cr Clr Drug Dosing mL/min Estimated GFR (MDRD) mL/min Glucose (74-106) mg/dL POC Glucose 374 H* 180 H 198 H (65-110) mg/dl Calcium (8.5-10.1) mg/dL Magnesium (1.8-2.4) mg/dL Total Bilirubin (0.2-1.0) mg/dL AST (15-37) U/L ALT (12-78) U/L Alkaline Phosphatase (46-116) IU/L C-Reactive Protein (<=0.9) mg/dL NT-Pro-B Natriuret Pep (0-125) pg/mL Total Protein (6.4-8.2) g/dL Albumin (3.4-5.0) g/dL Specimen Type Urine Color Urine Appearance Urine pH (5.0-9.0) Ur Specific [place] (1.005-1.030) Urine Protein (NEGATIVE) mg/dL Urine Glucose (UA) (NEGATIVE) mg/dL Urine Ketones (NEGATIVE) mg/dL Urine Occult Blood (NEGATIVE) Urine Nitrite (NEGATIVE) Urine Bilirubin (NEGATIVE) Urine Urobilinogen (0.2-1.0) E.U./dL Ur Leukocyte Esterase (NEGATIVE) Urine RBC /HPF Urine WBC /HPF Ur Epithelial Cells /LPF Other Crystals /HPF Amorphous Sediment (0/HPF) /HPF Urine Bacteria (NONE TO FEW) /HPF Urinalysis Comment Vancomycin Trough (10-20) ug/mL COVID-19 PCR (NOT DETECT) 03/05/20 03/05/20 03/05/20 Range/Units 11:36 17:57 20:27 WBC (4.0-10.2) K/uL RBC (4.33-5.41) M/uL Hgb (13.1-16.8) g/dL Hct (39.0-49.0) % MCV (84.0-98.0) fL MCH (28.2-33.3) pg MCHC (31.7-36.0) g/dL RDW (11.2-14.1) % Plt Count (150-350) K/uL Neut % (Auto) (45.0-80.0) % Lymph % (Auto) (10.0-50.0) % Andrews % (Auto) (2.0-14.0) % Eos % (Auto) (0.0-5.0) % Baso % (Auto) (0.0-2.0) % Neut # (Auto) (1.40-7.00) K/uL Lymph # (Auto) (0.50-3.50) K/uL Andrews # (Auto) (0.00-1.00) K/uL Eos # (Auto) (0.00-0.50) K/uL Baso # (Auto) (0.00-0.20) K/uL ESR (0-20) mm/hr Sodium (136-145) mmol/L Potassium (3.5-5.1) mmol/L Chloride (98-107) mmol/L Carbon Dioxide (21.0-32.0) mmol/L BUN (7-18) mg/dL Creatinine (0.51-1.17) mg/dL Est Cr Clr Drug Dosing mL/min Estimated GFR (MDRD) mL/min Glucose (74-106) mg/dL POC Glucose 156 H 272 H* 319 H* (65-110) mg/dl Calcium (8.5-10.1) mg/dL Magnesium (1.8-2.4) mg/dL Total Bilirubin (0.2-1.0) mg/dL AST (15-37) U/L ALT (12-78) U/L Alkaline Phosphatase (46-116) IU/L C-Reactive Protein (<=0.9) mg/dL NT-Pro-B Natriuret Pep (0-125) pg/mL Total Protein (6.4-8.2) g/dL Albumin (3.4-5.0) g/dL Specimen Type Urine Color Urine Appearance Urine pH (5.0-9.0) Ur Specific [place] (1.005-1.030) Urine Protein (NEGATIVE) mg/dL Urine Glucose (UA) (NEGATIVE) mg/dL Urine Ketones (NEGATIVE) mg/dL Urine Occult Blood (NEGATIVE) Urine Nitrite (NEGATIVE) Urine Bilirubin (NEGATIVE) Urine Urobilinogen (0.2-1.0) E.U./dL Ur Leukocyte Esterase (NEGATIVE) Urine RBC /HPF Urine WBC /HPF Ur Epithelial Cells /LPF Other Crystals /HPF Amorphous Sediment (0/HPF) /HPF Urine Bacteria (NONE TO FEW) /HPF Urinalysis Comment Vancomycin Trough (10-20) ug/mL COVID-19 PCR (NOT DETECT) 03/06/20 03/06/20 03/06/20 Range/Units 07:32 07:55 11:27 WBC (4.0-10.2) K/uL RBC (4.33-5.41) M/uL Hgb (13.1-16.8) g/dL Hct (39.0-49.0) % MCV (84.0-98.0) fL MCH (28.2-33.3) pg MCHC (31.7-36.0) g/dL RDW (11.2-14.1) % Plt Count (150-350) K/uL Neut % (Auto) (45.0-80.0) % Lymph % (Auto) (10.0-50.0) % Andrews % (Auto) (2.0-14.0) % Eos % (Auto) (0.0-5.0) % Baso % (Auto) (0.0-2.0) % Neut # (Auto) (1.40-7.00) K/uL Lymph # (Auto) (0.50-3.50) K/uL Andrews # (Auto) (0.00-1.00) K/uL Eos # (Auto) (0.00-0.50) K/uL Baso # (Auto) (0.00-0.20) K/uL ESR (0-20) mm/hr Sodium (136-145) mmol/L Potassium (3.5-5.1) mmol/L Chloride (98-107) mmol/L Carbon Dioxide (21.0-32.0) mmol/L BUN (7-18) mg/dL Creatinine 0.94 (0.51-1.17) mg/dL Est Cr Clr Drug Dosing 51.66 mL/min Estimated GFR (MDRD) > 60 mL/min Glucose (74-106) mg/dL POC Glucose 122 H 220 H (65-110) mg/dl Calcium (8.5-10.1) mg/dL Magnesium (1.8-2.4) mg/dL Total Bilirubin (0.2-1.0) mg/dL AST (15-37) U/L ALT (12-78) U/L Alkaline Phosphatase (46-116) IU/L C-Reactive Protein (<=0.9) mg/dL NT-Pro-B Natriuret Pep (0-125) pg/mL Total Protein (6.4-8.2) g/dL Albumin (3.4-5.0) g/dL Specimen Type Urine Color Urine Appearance Urine pH (5.0-9.0) Ur Specific [place] (1.005-1.030) Urine Protein (NEGATIVE) mg/dL Urine Glucose (UA) (NEGATIVE) mg/dL Urine Ketones (NEGATIVE) mg/dL Urine Occult Blood (NEGATIVE) Urine Nitrite (NEGATIVE) Urine Bilirubin (NEGATIVE) Urine Urobilinogen (0.2-1.0) E.U./dL Ur Leukocyte Esterase (NEGATIVE) Urine RBC /HPF Urine WBC /HPF Ur Epithelial Cells /LPF Other Crystals /HPF Amorphous Sediment (0/HPF) /HPF Urine Bacteria (NONE TO FEW) /HPF Urinalysis Comment Vancomycin Trough 18.0 (10-20) ug/mL COVID-19 PCR (NOT DETECT) 03/06/20 03/06/20 03/07/20 Range/Units 17:12 21:14 07:19 WBC (4.0-10.2) K/uL RBC (4.33-5.41) M/uL Hgb (13.1-16.8) g/dL Hct (39.0-49.0) % MCV (84.0-98.0) fL MCH (28.2-33.3) pg MCHC (31.7-36.0) g/dL RDW (11.2-14.1) % Plt Count (150-350) K/uL Neut % (Auto) (45.0-80.0) % Lymph % (Auto) (10.0-50.0) % Andrews % (Auto) (2.0-14.0) % Eos % (Auto) (0.0-5.0) % Baso % (Auto) (0.0-2.0) % Neut # (Auto) (1.40-7.00) K/uL Lymph # (Auto) (0.50-3.50) K/uL Andrews # (Auto) (0.00-1.00) K/uL Eos # (Auto) (0.00-0.50) K/uL Baso # (Auto) (0.00-0.20) K/uL ESR (0-20) mm/hr Sodium (136-145) mmol/L Potassium (3.5-5.1) mmol/L Chloride (98-107) mmol/L Carbon Dioxide (21.0-32.0) mmol/L BUN (7-18) mg/dL Creatinine (0.51-1.17) mg/dL Est Cr Clr Drug Dosing mL/min Estimated GFR (MDRD) mL/min Glucose (74-106) mg/dL POC Glucose 195 H 276 H* 169 H (65-110) mg/dl Calcium (8.5-10.1) mg/dL Magnesium (1.8-2.4) mg/dL Total Bilirubin (0.2-1.0) mg/dL AST (15-37) U/L ALT (12-78) U/L Alkaline Phosphatase (46-116) IU/L C-Reactive Protein (<=0.9) mg/dL NT-Pro-B Natriuret Pep (0-125) pg/mL Total Protein (6.4-8.2) g/dL Albumin (3.4-5.0) g/dL Specimen Type Urine Color Urine Appearance Urine pH (5.0-9.0) Ur Specific [place] (1.005-1.030) Urine Protein (NEGATIVE) mg/dL Urine Glucose (UA) (NEGATIVE) mg/dL Urine Ketones (NEGATIVE) mg/dL Urine Occult Blood (NEGATIVE) Urine Nitrite (NEGATIVE) Urine Bilirubin (NEGATIVE) Urine Urobilinogen (0.2-1.0) E.U./dL Ur Leukocyte Esterase (NEGATIVE) Urine RBC /HPF Urine WBC /HPF Ur Epithelial Cells /LPF Other Crystals /HPF Amorphous Sediment (0/HPF) /HPF Urine Bacteria (NONE TO FEW) /HPF Urinalysis Comment Vancomycin Trough (10-20) ug/mL COVID-19 PCR (NOT DETECT) 03/07/20 03/07/20 03/07/20 Range/Units 11:17 17:07 21:00 WBC (4.0-10.2) K/uL RBC (4.33-5.41) M/uL Hgb (13.1-16.8) g/dL Hct (39.0-49.0) % MCV (84.0-98.0) fL MCH (28.2-33.3) pg MCHC (31.7-36.0) g/dL RDW (11.2-14.1) % Plt Count (150-350) K/uL Neut % (Auto) (45.0-80.0) % Lymph % (Auto) (10.0-50.0) % Andrews % (Auto) (2.0-14.0) % Eos % (Auto) (0.0-5.0) % Baso % (Auto) (0.0-2.0) % Neut # (Auto) (1.40-7.00) K/uL Lymph # (Auto) (0.50-3.50) K/uL Andrews # (Auto) (0.00-1.00) K/uL Eos # (Auto) (0.00-0.50) K/uL Baso # (Auto) (0.00-0.20) K/uL ESR (0-20) mm/hr Sodium (136-145) mmol/L Potassium (3.5-5.1) mmol/L Chloride (98-107) mmol/L Carbon Dioxide (21.0-32.0) mmol/L BUN (7-18) mg/dL Creatinine (0.51-1.17) mg/dL Est Cr Clr Drug Dosing mL/min Estimated GFR (MDRD) mL/min Glucose (74-106) mg/dL POC Glucose 176 H 344 H* 226 H (65-110) mg/dl Calcium (8.5-10.1) mg/dL Magnesium (1.8-2.4) mg/dL Total Bilirubin (0.2-1.0) mg/dL AST (15-37) U/L ALT (12-78) U/L Alkaline Phosphatase (46-116) IU/L C-Reactive Protein (<=0.9) mg/dL NT-Pro-B Natriuret Pep (0-125) pg/mL Total Protein (6.4-8.2) g/dL Albumin (3.4-5.0) g/dL Specimen Type Urine Color Urine Appearance Urine pH (5.0-9.0) Ur Specific [place] (1.005-1.030) Urine Protein (NEGATIVE) mg/dL Urine Glucose (UA) (NEGATIVE) mg/dL Urine Ketones (NEGATIVE) mg/dL Urine Occult Blood (NEGATIVE) Urine Nitrite (NEGATIVE) Urine Bilirubin (NEGATIVE) Urine Urobilinogen (0.2-1.0) E.U./dL Ur Leukocyte Esterase (NEGATIVE) Urine RBC /HPF Urine WBC /HPF Ur Epithelial Cells /LPF Other Crystals /HPF Amorphous Sediment (0/HPF) /HPF Urine Bacteria (NONE TO FEW) /HPF Urinalysis Comment Vancomycin Trough (10-20) ug/mL COVID-19 PCR (NOT DETECT) 03/08/20 03/08/20 03/08/20 Range/Units 07:34 11:28 17:01 WBC (4.0-10.2) K/uL RBC (4.33-5.41) M/uL Hgb (13.1-16.8) g/dL Hct (39.0-49.0) % MCV (84.0-98.0) fL MCH (28.2-33.3) pg MCHC (31.7-36.0) g/dL RDW (11.2-14.1) % Plt Count (150-350) K/uL Neut % (Auto) (45.0-80.0) % Lymph % (Auto) (10.0-50.0) % Andrews % (Auto) (2.0-14.0) % Eos % (Auto) (0.0-5.0) % Baso % (Auto) (0.0-2.0) % Neut # (Auto) (1.40-7.00) K/uL Lymph # (Auto) (0.50-3.50) K/uL Andrews # (Auto) (0.00-1.00) K/uL Eos # (Auto) (0.00-0.50) K/uL Baso # (Auto) (0.00-0.20) K/uL ESR (0-20) mm/hr Sodium (136-145) mmol/L Potassium (3.5-5.1) mmol/L Chloride (98-107) mmol/L Carbon Dioxide (21.0-32.0) mmol/L BUN (7-18) mg/dL Creatinine (0.51-1.17) mg/dL Est Cr Clr Drug Dosing mL/min Estimated GFR (MDRD) mL/min Glucose (74-106) mg/dL POC Glucose 132 H 245 H 206 H (65-110) mg/dl Calcium (8.5-10.1) mg/dL Magnesium (1.8-2.4) mg/dL Total Bilirubin (0.2-1.0) mg/dL AST (15-37) U/L ALT (12-78) U/L Alkaline Phosphatase (46-116) IU/L C-Reactive Protein (<=0.9) mg/dL NT-Pro-B Natriuret Pep (0-125) pg/mL Total Protein (6.4-8.2) g/dL Albumin (3.4-5.0) g/dL Specimen Type Urine Color Urine Appearance Urine pH (5.0-9.0) Ur Specific Putnam (1.005-1.030) Urine Protein (NEGATIVE) mg/dL Urine Glucose (UA) (NEGATIVE) mg/dL Urine Ketones (NEGATIVE) mg/dL Urine Occult Blood (NEGATIVE) Urine Nitrite (NEGATIVE) Urine Bilirubin (NEGATIVE) Urine Urobilinogen (0.2-1.0) E.U./dL Ur Leukocyte Esterase (NEGATIVE) Urine RBC /HPF Urine WBC /HPF Ur Epithelial Cells /LPF Other Crystals /HPF Amorphous Sediment (0/HPF) /HPF Urine Bacteria (NONE TO FEW) /HPF Urinalysis Comment Vancomycin Trough (10-20) ug/mL COVID-19 PCR (NOT DETECT) 03/08/20 03/09/2020 Range/Units 20:56 07:35 11:28 WBC (4.0-10.2) K/uL RBC (4.33-5.41) M/uL Hgb (13.1-16.8) g/dL Hct (39.0-49.0) % MCV (84.0-98.0) fL MCH (28.2-33.3) pg MCHC (31.7-36.0) g/dL RDW (11.2-14.1) % Plt Count (150-350) K/uL Neut % (Auto) (45.0-80.0) % Lymph % (Auto) (10.0-50.0) % Andrews % (Auto) (2.0-14.0) % Eos % (Auto) (0.0-5.0) % Baso % (Auto) (0.0-2.0) % Neut # (Auto) (1.40-7.00) K/uL Lymph # (Auto) (0.50-3.50) K/uL Andrews # (Auto) (0.00-1.00) K/uL Eos # (Auto) (0.00-0.50) K/uL Baso # (Auto) (0.00-0.20) K/uL ESR (0-20) mm/hr Sodium (136-145) mmol/L Potassium (3.5-5.1) mmol/L Chloride (98-107) mmol/L Carbon Dioxide (21.0-32.0) mmol/L BUN (7-18) mg/dL Creatinine (0.51-1.17) mg/dL Est Cr Clr Drug Dosing mL/min Estimated GFR (MDRD) mL/min Glucose (74-106) mg/dL POC Glucose 189 H 136 H 151 H (65-110) mg/dl Calcium (8.5-10.1) mg/dL Magnesium (1.8-2.4) mg/dL Total Bilirubin (0.2-1.0) mg/dL AST (15-37) U/L ALT (12-78) U/L Alkaline Phosphatase (46-116) IU/L C-Reactive Protein (<=0.9) mg/dL NT-Pro-B Natriuret Pep (0-125) pg/mL Total Protein (6.4-8.2) g/dL Albumin (3.4-5.0) g/dL Specimen Type Urine Color Urine Appearance Urine pH (5.0-9.0) Ur Specific [place] (1.005-1.030) Urine Protein (NEGATIVE) mg/dL Urine Glucose (UA) (NEGATIVE) mg/dL Urine Ketones (NEGATIVE) mg/dL Urine Occult Blood (NEGATIVE) Urine Nitrite (NEGATIVE) Urine Bilirubin (NEGATIVE) Urine Urobilinogen (0.2-1.0) E.U./dL Ur Leukocyte Esterase (NEGATIVE) Urine RBC /HPF Urine WBC /HPF Ur Epithelial Cells /LPF Other Crystals /HPF Amorphous Sediment (0/HPF) /HPF Urine Bacteria (NONE TO FEW) /HPF Urinalysis Comment Vancomycin Trough (10-20) ug/mL COVID-19 PCR (NOT DETECT) 03/09/20 03/09/20 03/10/20 Range/Units 17:07 21:10 07:34 WBC (4.0-10.2) K/uL RBC (4.33-5.41) M/uL Hgb (13.1-16.8) g/dL Hct (39.0-49.0) % MCV (84.0-98.0) fL MCH (28.2-33.3) pg MCHC (31.7-36.0) g/dL RDW (11.2-14.1) % Plt Count (150-350) K/uL Neut % (Auto) (45.0-80.0) % Lymph % (Auto) (10.0-50.0) % Andrews % (Auto) (2.0-14.0) % Eos % (Auto) (0.0-5.0) % Baso % (Auto) (0.0-2.0) % Neut # (Auto) (1.40-7.00) K/uL Lymph # (Auto) (0.50-3.50) K/uL Andrews # (Auto) (0.00-1.00) K/uL Eos # (Auto) (0.00-0.50) K/uL Baso # (Auto) (0.00-0.20) K/uL ESR (0-20) mm/hr Sodium (136-145) mmol/L Potassium (3.5-5.1) mmol/L Chloride (98-107) mmol/L Carbon Dioxide (21.0-32.0) mmol/L BUN (7-18) mg/dL Creatinine (0.51-1.17) mg/dL Est Cr Clr Drug Dosing mL/min Estimated GFR (MDRD) mL/min Glucose (74-106) mg/dL POC Glucose 196 H 197 H 116 H (65-110) mg/dl Calcium (8.5-10.1) mg/dL Magnesium (1.8-2.4) mg/dL Total Bilirubin (0.2-1.0) mg/dL AST (15-37) U/L ALT (12-78) U/L Alkaline Phosphatase (46-116) IU/L C-Reactive Protein (<=0.9) mg/dL NT-Pro-B Natriuret Pep (0-125) pg/mL Total Protein (6.4-8.2) g/dL Albumin (3.4-5.0) g/dL Specimen Type Urine Color Urine Appearance Urine pH (5.0-9.0) Ur Specific [place] (1.005-1.030) Urine Protein (NEGATIVE) mg/dL Urine Glucose (UA) (NEGATIVE) mg/dL Urine Ketones (NEGATIVE) mg/dL Urine Occult Blood (NEGATIVE) Urine Nitrite (NEGATIVE) Urine Bilirubin (NEGATIVE) Urine Urobilinogen (0.2-1.0) E.U./dL Ur Leukocyte Esterase (NEGATIVE) Urine RBC /HPF Urine WBC /HPF Ur Epithelial Cells /LPF Other Crystals /HPF Amorphous Sediment (0/HPF) /HPF Urine Bacteria (NONE TO FEW) /HPF Urinalysis Comment Vancomycin Trough (10-20) ug/mL COVID-19 PCR (NOT DETECT) 03/10/20 03/10/20 03/10/20 Range/Units 11:36 17:09 20:56 WBC (4.0-10.2) K/uL RBC (4.33-5.41) M/uL Hgb (13.1-16.8) g/dL Hct (39.0-49.0) % MCV (84.0-98.0) fL MCH (28.2-33.3) pg MCHC (31.7-36.0) g/dL RDW (11.2-14.1) % Plt Count (150-350) K/uL Neut % (Auto) (45.0-80.0) % Lymph % (Auto) (10.0-50.0) % Andrews % (Auto) (2.0-14.0) % Eos % (Auto) (0.0-5.0) % Baso % (Auto) (0.0-2.0) % Neut # (Auto) (1.40-7.00) K/uL Lymph # (Auto) (0.50-3.50) K/uL Andrews # (Auto) (0.00-1.00) K/uL Eos # (Auto) (0.00-0.50) K/uL Baso # (Auto) (0.00-0.20) K/uL ESR (0-20) mm/hr Sodium (136-145) mmol/L Potassium (3.5-5.1) mmol/L Chloride (98-107) mmol/L Carbon Dioxide (21.0-32.0) mmol/L BUN (7-18) mg/dL Creatinine (0.51-1.17) mg/dL Est Cr Clr Drug Dosing mL/min Estimated GFR (MDRD) mL/min Glucose (74-106) mg/dL POC Glucose 233 H 278 H* 207 H (65-110) mg/dl Calcium (8.5-10.1) mg/dL Magnesium (1.8-2.4) mg/dL Total Bilirubin (0.2-1.0) mg/dL AST (15-37) U/L ALT (12-78) U/L Alkaline Phosphatase (46-116) IU/L C-Reactive Protein (<=0.9) mg/dL NT-Pro-B Natriuret Pep (0-125) pg/mL Total Protein (6.4-8.2) g/dL Albumin (3.4-5.0) g/dL Specimen Type Urine Color Urine Appearance Urine pH (5.0-9.0) Ur Specific [place] (1.005-1.030) Urine Protein (NEGATIVE) mg/dL Urine Glucose (UA) (NEGATIVE) mg/dL Urine Ketones (NEGATIVE) mg/dL Urine Occult Blood (NEGATIVE) Urine Nitrite (NEGATIVE) Urine Bilirubin (NEGATIVE) Urine Urobilinogen (0.2-1.0) E.U./dL Ur Leukocyte Esterase (NEGATIVE) Urine RBC /HPF Urine WBC /HPF Ur Epithelial Cells /LPF Other Crystals /HPF Amorphous Sediment (0/HPF) /HPF Urine Bacteria (NONE TO FEW) /HPF Urinalysis Comment Vancomycin Trough (10-20) ug/mL COVID-19 PCR (NOT DETECT) 03/11/20 03/11/20 03/11/20 Range/Units 07:27 07:30 07:30 WBC 6.9 (4.0-10.2) K/uL RBC 3.67 L (4.33-5.41) M/uL Hgb 10.9 L (13.1-16.8) g/dL Hct 33.8 L (39.0-49.0) % MCV 92.1 (84.0-98.0) fL MCH 29.7 (28.2-33.3) pg MCHC 32.2 (31.7-36.0) g/dL RDW 13.5 (11.2-14.1) % Plt Count 343 (150-350) K/uL Neut % (Auto) 66.0 (45.0-80.0) % Lymph % (Auto) 20.7 (10.0-50.0) % Andrews % (Auto) 11.4 (2.0-14.0) % Eos % (Auto) 1.6 (0.0-5.0) % Baso % (Auto) 0.3 (0.0-2.0) % Neut # (Auto) 4.54 (1.40-7.00) K/uL Lymph # (Auto) 1.42 (0.50-3.50) K/uL Andrews # (Auto) 0.78 (0.00-1.00) K/uL Eos # (Auto) 0.11 (0.00-0.50) K/uL Baso # (Auto) 0.02 (0.00-0.20) K/uL ESR 21 H (0-20) mm/hr Sodium 138 (136-145) mmol/L Potassium 4.5 (3.5-5.1) mmol/L Chloride 102 (98-107) mmol/L Carbon Dioxide 27.4 (21.0-32.0) mmol/L BUN 25 H (7-18) mg/dL Creatinine 0.98 (0.51-1.17) mg/dL Est Cr Clr Drug Dosing 49.55 mL/min Estimated GFR (MDRD) > 60 mL/min Glucose 173 H (74-106) mg/dL POC Glucose 178 H (65-110) mg/dl Calcium 9.6 (8.5-10.1) mg/dL Magnesium (1.8-2.4) mg/dL Total Bilirubin 0.5 (0.2-1.0) mg/dL AST 22 (15-37) U/L ALT 29 (12-78) U/L Alkaline Phosphatase 102 (46-116) IU/L C-Reactive Protein 0.3 (<=0.9) mg/dL NT-Pro-B Natriuret Pep (0-125) pg/mL Total Protein 6.6 (6.4-8.2) g/dL Albumin 3.0 L (3.4-5.0) g/dL Specimen Type Urine Color Urine Appearance Urine pH (5.0-9.0) Ur Specific [place] (1.005-1.030) Urine Protein (NEGATIVE) mg/dL Urine Glucose (UA) (NEGATIVE) mg/dL Urine Ketones (NEGATIVE) mg/dL Urine Occult Blood (NEGATIVE) Urine Nitrite (NEGATIVE) Urine Bilirubin (NEGATIVE) Urine Urobilinogen (0.2-1.0) E.U./dL Ur Leukocyte Esterase (NEGATIVE) Urine RBC /HPF Urine WBC /HPF Ur Epithelial Cells /LPF Other Crystals /HPF Amorphous Sediment (0/HPF) /HPF Urine Bacteria (NONE TO FEW) /HPF Urinalysis Comment Vancomycin Trough (10-20) ug/mL COVID-19 PCR (NOT DETECT) 03/11/20 03/11/20 03/11/20 Range/Units 07:30 11:04 17:15 WBC (4.0-10.2) K/uL RBC (4.33-5.41) M/uL Hgb (13.1-16.8) g/dL Hct (39.0-49.0) % MCV (84.0-98.0) fL MCH (28.2-33.3) pg MCHC (31.7-36.0) g/dL RDW (11.2-14.1) % Plt Count (150-350) K/uL Neut % (Auto) (45.0-80.0) % Lymph % (Auto) (10.0-50.0) % Andrews % (Auto) (2.0-14.0) % Eos % (Auto) (0.0-5.0) % Baso % (Auto) (0.0-2.0) % Neut # (Auto) (1.40-7.00) K/uL Lymph # (Auto) (0.50-3.50) K/uL Andrews # (Auto) (0.00-1.00) K/uL Eos # (Auto) (0.00-0.50) K/uL Baso # (Auto) (0.00-0.20) K/uL ESR (0-20) mm/hr Sodium (136-145) mmol/L Potassium (3.5-5.1) mmol/L Chloride (98-107) mmol/L Carbon Dioxide (21.0-32.0) mmol/L BUN (7-18) mg/dL Creatinine (0.51-1.17) mg/dL Est Cr Clr Drug Dosing mL/min Estimated GFR (MDRD) mL/min Glucose (74-106) mg/dL POC Glucose 185 H 271 H* (65-110) mg/dl Calcium (8.5-10.1) mg/dL Magnesium (1.8-2.4) mg/dL Total Bilirubin (0.2-1.0) mg/dL AST (15-37) U/L ALT (12-78) U/L Alkaline Phosphatase (46-116) IU/L C-Reactive Protein (<=0.9) mg/dL NT-Pro-B Natriuret Pep (0-125) pg/mL Total Protein (6.4-8.2) g/dL Albumin (3.4-5.0) g/dL Specimen Type Urine Color Urine Appearance Urine pH (5.0-9.0) Ur Specific Putnam (1.005-1.030) Urine Protein (NEGATIVE) mg/dL Urine Glucose (UA) (NEGATIVE) mg/dL Urine Ketones (NEGATIVE) mg/dL Urine Occult Blood (NEGATIVE) Urine Nitrite (NEGATIVE) Urine Bilirubin (NEGATIVE) Urine Urobilinogen (0.2-1.0) E.U./dL Ur Leukocyte Esterase (NEGATIVE) Urine RBC /HPF Urine WBC /HPF Ur Epithelial Cells /LPF Other Crystals /HPF Amorphous Sediment (0/HPF) /HPF Urine Bacteria (NONE TO FEW) /HPF Urinalysis Comment Vancomycin Trough 22.6 H (10-20) ug/mL COVID-19 PCR (NOT DETECT) 03/11/20 03/12/20 Range/Units 21:54 07:31 WBC (4.0-10.2) K/uL RBC (4.33-5.41) M/uL Hgb (13.1-16.8) g/dL Hct (39.0-49.0) % MCV (84.0-98.0) fL MCH (28.2-33.3) pg MCHC (31.7-36.0) g/dL RDW (11.2-14.1) % Plt Count (150-350) K/uL Neut % (Auto) (45.0-80.0) % Lymph % (Auto) (10.0-50.0) % Andrews % (Auto) (2.0-14.0) % Eos % (Auto) (0.0-5.0) % Baso % (Auto) (0.0-2.0) % Neut # (Auto) (1.40-7.00) K/uL Lymph # (Auto) (0.50-3.50) K/uL Andrews # (Auto) (0.00-1.00) K/uL Eos # (Auto) (0.00-0.50) K/uL Baso # (Auto) (0.00-0.20) K/uL ESR (0-20) mm/hr Sodium (136-145) mmol/L Potassium (3.5-5.1) mmol/L Chloride (98-107) mmol/L Carbon Dioxide (21.0-32.0) mmol/L BUN (7-18) mg/dL Creatinine (0.51-1.17) mg/dL Est Cr Clr Drug Dosing mL/min Estimated GFR (MDRD) mL/min Glucose (74-106) mg/dL POC Glucose 190 H 154 H (65-110) mg/dl Calcium (8.5-10.1) mg/dL Magnesium (1.8-2.4) mg/dL Total Bilirubin (0.2-1.0) mg/dL AST (15-37) U/L ALT (12-78) U/L Alkaline Phosphatase (46-116) IU/L C-Reactive Protein (<=0.9) mg/dL NT-Pro-B Natriuret Pep (0-125) pg/mL Total Protein (6.4-8.2) g/dL Albumin (3.4-5.0) g/dL Specimen Type Urine Color Urine Appearance Urine pH (5.0-9.0) Ur Specific Putnam (1.005-1.030) Urine Protein (NEGATIVE) mg/dL Urine Glucose (UA) (NEGATIVE) mg/dL Urine Ketones (NEGATIVE) mg/dL Urine Occult Blood (NEGATIVE) Urine Nitrite (NEGATIVE) Urine Bilirubin (NEGATIVE) Urine Urobilinogen (0.2-1.0) E.U./dL Ur Leukocyte Esterase (NEGATIVE) Urine RBC /HPF Urine WBC /HPF Ur Epithelial Cells /LPF Other Crystals /HPF Amorphous Sediment (0/HPF) /HPF Urine Bacteria (NONE TO FEW) /HPF Urinalysis Comment Vancomycin Trough (10-20) ug/mL COVID-19 PCR (NOT DETECT) [facility] Results - Last 24 hrs: None Med Orders - Current: Current Medications Acetaminophen (Tylenol) 650 mg PO Q6H PRN PRN Reason: Pain Last Admin: 03/05/20 00:57 Dose: 650 mg Al Hydroxide/Mg Hydroxide (Mag-Al Plus) 30 ml PO QID PRN PRN Reason: GI upset Last Admin: 03/11/20 13:42 Dose: 30 ml Albuterol (Ventolin Hfa) 1 gm INH Q2H PRN PRN Reason: Dyspnea Last Admin: 02/27/20 07:44 Dose: 2 puff Amiodarone HCl (Cordarone) 200 mg PO DAILY [facility] Last Admin: 03/12/20 08:14 Dose: 200 mg Aspirin (Aspirin) 325 mg PO WITHBREAKFAST [facility] Last Admin: 03/12/20 08:03 Dose: 325 mg Atorvastatin Calcium (Lipitor) 40 mg PO BEDTIME [facility] Last Admin: 03/11/20 19:12 Dose: 40 mg Calcium Carbonate (Caltrate 600+D 1500 Mg-400 Units) 1 tab PO BID [facility] Last Admin: 03/12/20 08:04 Dose: 1 tab Cholecalciferol (Vitamin D3) 25 mcg PO DAILY [facility] Last Admin: 03/12/20 08:03 Dose: 25 mcg Docusate Sodium (Colace) 200 mg PO DAILY PRN PRN Reason: Constipation Last Admin: 03/09/20 08:26 Dose: 200 mg Ezetimibe (Zetia) 10 mg PO DAILY [facility] Last Admin: 03/12/20 08:03 Dose: 10 mg Furosemide (Lasix) 10 mg IVPUSH DAILY [facility] Last Admin: 03/12/20 08:10 Dose: 10 mg Heparin Sodium (Porcine) (Heparin Lock Flush 100 Units/Ml) 300 units FLUSH ASDIRECTED [facility] Last Admin: 03/12/20 09:09 Dose: 300 units Ertapenem 1 gm/ Sodium (Chloride) 100 mls @ 200 mls/hr IV DAILY [facility] Last Admin: 03/12/20 08:23 Dose: 200 mls/hr Vancomycin HCl 1 gm/ Sodium (Chloride) 250 mls @ 165 mls/hr IV Q24H [facility] Insulin Glargine (Lantus) 10 unit SUBCUT BID [facility] Last Admin: 03/12/20 08:16 Dose: 10 units Insulin Human Lispro (Humalog) 0 unit SUBCUT QIDACANDBED [facility]; Protocol Last Admin: 03/12/20 08:17 Dose: 2 unit Magnesium Hydroxide (Milk Of Magnesia) 30 ml PO DAILY PRN PRN Reason: Constipation Last Admin: 03/09/20 19:22 Dose: 30 ml Metformin HCl (Glucophage) 500 mg PO BIDMEALS [facility] Last Admin: 03/12/20 08:04 Dose: 500 mg Metoprolol Tartrate (Lopressor) 50 mg PO Q12HR [facility] Last Admin: 03/12/20 08:14 Dose: 50 mg Multivitamins/Minerals/Vitamin C (Tab-A-Tamiko) 1 tab PO DAILY [facility] Last Admin: 03/12/20 08:05 Dose: 1 tab Nitroglycerin (Nitrostat) 0.4 mg SL ASDIRECTED PRN PRN Reason: Chest Pain Sodium Chloride (Saline Flush) 10 ml FLUSH ASDIRECTED PRN PRN Reason: Keep Vein Open Last Admin: 03/12/20 09:08 Dose: 10 ml Temazepam (Restoril) 15 mg PO BEDTIME PRN PRN Reason: Insomnia Last Admin: 03/10/20 21:59 Dose: 15 mg Tiotropium Chilton (Spiriva Handihaler) 18 mcg INH DAILY [facility] Last Admin: 03/12/20 08:21 Dose: 1 cap Tramadol HCl (Ultram) 25 mg PO Q4H PRN PRN Reason: Pain Triamterene/HCTZ (Maxzide 50-75 Mg) 0.5 each PO DAILY [facility] Last Admin: 03/12/20 08:14 Dose: 0.5 each Discontinued Medications Albuterol/Ipratropium (Duoneb 3.0-0.5 Mg/3 Ml) 3 ml NEB ONETIME ONE Stop: 02/23/20 14:49 Last Admin: 02/23/20 15:18 Dose: 3 ml Albuterol/Ipratropium (Duoneb 3.0-0.5 Mg/3 Ml) 3 ml NEB Q6HRRT [facility] Last Admin: 02/24/20 20:17 Dose: 3 ml Albuterol/Ipratropium (Duoneb 3.0-0.5 Mg/3 Ml) 3 ml NEB QID [facility] Last Admin: 02/26/20 07:34 Dose: 3 ml Albuterol/Ipratropium (Duoneb 3.0-0.5 Mg/3 Ml) 3 ml NEB Q4HRRT PRN PRN Reason: Dyspnea Aspirin (Halfprin) 81 mg PO DAILY [facility] Calcium Carbonate (Caltrate 600+D 1500 Mg-400 Units) 1 tab PO BIDMEALS [facility] Last Admin: 02/26/20 07:33 Dose: 1 tab Docusate Sodium (Colace 50 Mg/5 Ml Liquid) 200 mg PO DAILY PRN PRN Reason: Constipation Furosemide (Lasix) 40 mg IVPUSH NOW ONE Stop: 02/23/20 13:55 Last Admin: 02/23/20 14:56 Dose: 40 mg Furosemide (Lasix) 20 mg IVPUSH ONETIME ONE Stop: 02/23/20 19:01 Last Admin: 02/23/20 20:37 Dose: Not Given Furosemide (Lasix) 40 mg IVPUSH ONETIME ONE Stop: 02/24/20 08:01 Last Admin: 02/24/20 08:19 Dose: 40 mg Furosemide (Lasix) 20 mg IVPUSH DAILY [facility] Vancomycin HCl 0.75 gm/ Sodium (Chloride) 250 mls @ 215 mls/hr IV Q12H [facility] Last Admin: 02/25/20 09:10 Dose: 215 mls/hr Vancomycin HCl 1 gm/ Sodium (Chloride) 250 mls @ 165 mls/hr IV Q24H [facility] Last Admin: 02/27/20 08:43 Dose: Not Given Vancomycin HCl 1.5 gm/ Premix 300 mls @ 200 mls/hr IV Q24H [facility] Last Admin: 03/03/20 13:10 Dose: Not Given Vancomycin HCl 1.25 gm/ Sodium (Chloride) 250 mls @ 200 mls/hr IV DAILY [facility] Last Admin: 03/11/20 10:08 Dose: Not Given Insulin Glargine (Lantus) 18 unit SUBCUT Q12HR [facility] Last Admin: 02/28/20 08:35 Dose: 18 units Insulin Glargine (Lantus) 12 unit SUBCUT BEDTIME ONE Stop: 02/27/20 21:07 Insulin Glargine (Lantus) 12 unit SUBCUT BEDTIME ONE Stop: 02/26/20 21:31 Last Admin: 02/26/20 22:08 Dose: 12 units Insulin Human Lispro (Humalog) 0 unit SUBCUT QID [facility]; Protocol Insulin Human Lispro (Humalog) 0 unit SUBCUT QID@08,12,18,21 [facility]; Protocol Last Admin: 02/26/20 11:37 Dose: 2 units Insulin Human Lispro (Humalog) 10 unit SUBCUT ONETIME ONE Stop: 02/23/20 22:37 Insulin Human Lispro (Humalog) 10 unit SUBCUT ONETIME ONE Stop: 02/22/20 22:37 Last Admin: 02/23/20 03:37 Dose: 10 units Insulin Human Lispro (Humalog) 0 unit SUBCUT 0800,1200,1800,2000 [facility]; Protocol Last Admin: 03/02/20 08:12 Dose: 6 units Insulin Human Lispro (Humalog) 12 unit SUBCUT ONETIME ONE; Protocol Stop: 03/02/20 11:21 Last Admin: 03/02/20 12:01 Dose: 12 unit Metformin HCl (Glucophage) 1,000 mg PO BIDMEALS [facility] Last Admin: 02/26/20 07:32 Dose: 1,000 mg Metformin HCl (Glucophage) 1,000 mg PO BID [facility] Last Admin: 02/28/20 08:01 Dose: 1,000 mg Non-Formulary Medication (Azelastine/Fluticasone [Azelastin-Flutic 137-50mcg Spr ]) 1 spray NASBOTH BID [facility] Last Admin: 02/27/20 12:58 Dose: Not Given Non-Formulary Medication (Docusate Sodium [Dss]) 1 tab PO DAILY [facility] Non-Formulary Medication (Ertapenem [Invanz]) 1 gm IV DAILY [facility] Non-Formulary Medication (Insulin Lispro) 15 unit SUBCUT TIDMEALS [facility] Last Admin: 02/22/20 19:30 Dose: Not Given Non-Formulary Medication (Vancomycin [Vancomycin]) 750 mg IV Q12HR [facility] Sodium Chloride (Saline Flush) 10 ml IV ASDIRECTED [facility] Last Admin: 02/22/20 22:24 Dose: 10 ml Vancomycin HCl (Pharmacy To Dose - Vancomycin) 1 dose .XX ASDIRECTED [facility] - Exam Quality Assessment: Reports: DVT Prophylaxis. Denies: Supplemental Oxygen, Central Line/PICC, Urine Catheter, Skin Breakdown, Restraints General: Reports: Alert, Oriented, Cooperative, No Acute Distress HEENT: Reports: Pupils Equal, Pupils Reactive, EOMI, Mucous Membr. Moist/Orwin, Other (Patient wearing glasses). Denies: Scleral Icterus Neck: Reports: Supple, Trachea Midline, No JVD, No Thyromegaly, Carotid Bruit ( Mild bilateral carotid bruits). Denies: Lymphadenopathy Lungs: Reports: Clear to Auscultation, Normal Respiratory Effort, Other (Chest wall incision is intact with no evidence of infection). Denies: Rub Cardiovascular: Reports: Regular Rate, Regular Rhythm, No Murmurs. Denies: Gallops, Rubs GI/Abdominal Exam: Normal Bowel Sounds, Soft, Non-Tender, No Organomegaly, No Distention, No Abnormal Bruit, No Mass, Pelvis Stable. No: Guarding (Male) Exam: Deferred Rectal (Males) Exam: Deferred Back Exam: Reports: Normal Inspection, Full Range of Motion. Denies: CVA Tenderness (L), CVA Tenderness (R), Muscle Spasm Extremities: Normal Range of Motion, Non-Tender, No Pedal Edema, Normal Capillary Refill, Other (Postoperative side of digit #1 of the left foot is well -healed with no evidence of infection). No: Luiza's Sign Skin: Reports: Warm, Dry, Intact Wound/Incisions: Reports: Healing Well Neurological: Reports: No New Focal Deficit, Other (Borderline mild organic brain syndrome) Psy/Mental Status: Reports: Alert, Normal Affect, Normal Mood. Denies: Agitated , Hallucinations, Withdrawal Symptoms
--- NOTE | 2020-03-13 13:25 | PCM.SN.2 ---
- Free Text/Narrative Note: Telephone consultation by our nursing staff both with the patient's pharmacy and his . Some confusion with discharge orders on 03/12. It appears that his amiodarone was scheduled to be discontinued on 03/05 with this medication to be discontinued at this time. In addition, the patient only has Toprol XL at home with Toprol-XL, 100 mg tablets, to be changed to one half tablet by mouth twice a day in lieu of previous Lopressor therapy, which he received in our facility. There was also some confusion concerning patient's insulin sliding scale with a copy of sliding scale sent to his for further clarification. Nurses did discuss and clarify the patient's reduced medical therapy during his care in this facility with his .
== END 2020-03-12 13:40 | disposition home or self-care (01) | DRG 638 ==
LOC: UNDOADMIN 14:41 → LL.MS 14:41
PROVIDERS: ADMIT Emergency Medicine; ATTEND Emergency Medicine
DX: E11.69 Type 2 diabetes mellitus with other specified complication (principal); M86.9 Osteomyelitis, unspecified; I25.810 Atherosclerosis of coronary artery bypass graft(s) without angina pectoris; F02.80 Dementia in other diseases classified elsewhere, unspecified severity, without behavioral disturbance, psychotic disturbance, mood disturbance, and anxiety; I48.0 Paroxysmal atrial fibrillation; D64.89 Other specified anemias; G30.9 Alzheimer's disease, unspecified; N28.9 Disorder of kidney and ureter, unspecified; D15.1 Benign neoplasm of heart; I50.9 Heart failure, unspecified; J43.1 Panlobular emphysema; E78.00 Pure hypercholesterolemia, unspecified; I11.0 Hypertensive heart disease with heart failure; E11.9 Type 2 diabetes mellitus without complications; J44.9 Chronic obstructive pulmonary disease, unspecified; M19.90 Unspecified osteoarthritis, unspecified site; M54.2 Cervicalgia; G89.29 Other chronic pain; E11.42 Type 2 diabetes mellitus with diabetic polyneuropathy; M54.5 Low back pain; Z79.4 Long term (current) use of insulin; Z79.82 Long term (current) use of aspirin; Z79.899 Other long term (current) drug therapy; Z95.5 Presence of coronary angioplasty implant and graft
CPT/HCPCS: 36415; 71046; 80048; 80053; 80202; 81001; 82565; 82962; 83735; 83880; 84460; 85025; 85652; 86140; 87086; 94640; 97161-GP; A9270-GY; J1335; J1642; J1815-GY; J1940; J3370; J7050; J7620-GY; U0002

== ENCOUNTER 2021-09-20 15:42 | Emergency (ER) | payer MEDICARE, OTHER ==
--- NOTE | 2021-09-20 16:18 | EDM.PDOC ---
ED HPI GENERAL MEDICAL PROBLEM - General Chief Complaint: Cardiovascular Problem Stated Complaint: code blue Time Seen by Provider: 09/20/21 15:42 Source of Information: Reports: EMS History Limitations: Reports: Other (unresponsive) - History of Present Illness INITIAL COMMENTS - FREE TEXT/NARRATIVE: Patient found unresponsive by vehicle by neighbor. Neighbor was helping the patient dig the vehicle out which had become stuck in snow. Just before this patient had phone his to tell her he was stuck and neighbor was bringing shovels. She advised him not to shovel and he told her that he felt fine and was capable of shoveling. Had bystander CPR for approximately 40 minutes while EMS was dispatched to [place]. By time of arrival patient had received over 1 hour of CPR. 4 rounds of Epi. Had varied rhythms on monitor which included Vtach per EMS. They they noted he went into PEA. Was in asystole when vitals checked in ED. EMS unable to obtain a secure airway. Patient started having copious amounts of blood appear from mouth during airway attempts. Amrit stopped. Unable to locate pulse. Asystole on monitor. Patient apneic. Cool to touch. [place]. EMS crew notes patient was initially warm when they arrived and they noted that he progressively cooled down during transport. Pupils fixed and dilated. Code called at that time and resuscitation efforts terminated. Mold Parter contracted. It was determined that an autopsy would not be required. Suspect IA/cardiac arrhythmia as cause of . Patient had history of CHF/Stents/CAD/Afib. - Related Data Allergies Allergy/AdvReac Type Severity Reaction Status Date / Time No Known Allergies Allergy Verified 03/15/20 11:20 Home Meds: Home Meds Acetaminophen 650 mg PO Q6H PRN 02/22/20 [History] Albuterol Sulfate [Albuterol Sulfate Hfa] 2 puff INH Q4H PRN 02/22/20 [History] Amiodarone [Cordarone] 1 tab PO DAILY 02/22/20 [History] Azelastine/Fluticasone [Azelastin-Flutic 137-50Mcg Spr] 1 spray NASBOTH BID 02/22/20 [History] Calcium Citrate/Vitamin D3 [Calcium Cit 315 mg-D3 250 Unit] 1 tab PO BIDMEALS 02/22/20 [History] Cholecalciferol (Vitamin D3) [Vitamin D3] 1 cap PO DAILY 02/22/20 [History] Docusate Sodium [Dss] 1 tab PO DAILY 02/22/20 [History] Ertapenem [INVanz] 1 gm IV DAILY 02/22/20 [History] Ezetimibe 10 mg PO DAILY 02/22/20 [History] Fluticasone/Vilanterol [Breo Ellipta 200-25 MCG Inhalation Kit] 1 puff INH DAILY 02/22/20 [History] HCTZ/Triamterene [Maxzide 25-37.5 MG] 1 tab PO DAILY 02/22/20 [History] Heparin Sodium [Heparin Lock Flush] 300 unit IV ASDIRECTED 02/22/20 [History] Metoprolol Tartrate 50 mg PO Q12HR 02/22/20 [History] Metoprolol Tartrate [Lopressor] 50 mg PO Q12HR 02/22/20 [History] Multivitamin 1 tab PO DAILY 02/22/20 [History] Nitroglycerin [Nitrostat] 0.4 mg SL ASDIRECTED PRN 02/22/20 [History] Tiotropium Crawford [Spiriva Respimat] 2 puff INH DAILY 02/22/20 [History] atorvaSTATin [Lipitor] 40 mg PO BEDTIME 02/22/20 [History] Aspirin 325 mg PO WITHBREAKFAST tablet 03/12/20 [Rx] Docusate Sodium [Colace] 200 mg PO DAILY PRN cap 03/12/20 [Rx] Ertapenem [INVanz] 1 gm IV DAILY vial 03/12/20 [Rx] Insulin Glarg,Human.Rec.Analog [Lantus] 10 unit SUBCUT BID ml 03/12/20 [Rx] Insulin Lispro [HumaLOG] 0 unit SUBCUT QIDACANDBED vial 03/12/20 [Rx] Magnesium Hydroxide [Milk of Magnesia] 30 ml PO DAILY PRN cup 03/12/20 [Rx] Sodium Chloride 0.9% [Saline Flush] 10 ml FLUSH ASDIRECTED PRN syringe 03/12/20 [Rx] Vancomycin 1 gm IV Q24H sdv 03/12/20 [Rx] metFORMIN [Glucophage] 500 mg PO BIDMEALS tablet 03/12/20 [Rx] Past Medical History HEENT History: Reports: Cataract, Impaired Vision, Macular Degeneration, Other (See Below) Cardiovascular History: Reports: Bypass, CAD, Heart Failure, High Cholesterol, Hypertension, Stents Other Cardiovascular History: hx of A fib. Atrial septal aneurysm. Growth removed from inside atrium this past week that was secondary to bacterial infection. Respiratory History: Reports: COPD Gastrointestinal History: Reports: None Genitourinary History: Reports: None Musculoskeletal History: Reports: Neck Pain, Chronic, Osteoarthritis Other Musculoskeletal History: c/o R hip/back pain. Cervical stenosis. Neurological History: Reports: Alzheimers Disease, Neuropathy, Diabetic, Other (See Below) Other Neuro History: states pt. was diagnosed with "early alzheimers" but medications has not been started yet. Gait instability Endocrine/Metabolic History: Reports: Diabetes, Type II Dermatologic History: Reports: None - Infectious Disease History Infectious Disease History: Reports: MRSA - Past Surgical History Head Surgeries/Procedures: Reports: None HEENT Surgical History: Reports: Cataract Surgery, Eye Surgery, Laser Surgery Cardiovascular Surgical History: Reports: Coronary Artery Bypass, Percutaneous Transluminal Angioplasty, Other (See Below) GI Surgical History: Reports: None Neurological Surgical History: Reports: C-Spine Musculoskeletal Surgical History: Reports: Arthroscopic Knee, Shoulder Surgery, Other (See Below) Dermatological Surgical History: Reports: None Social & Family History - Family History Family Medical History: Unobtainable HEENT: Reports: Glaucoma Cardiac: Reports: Bypass, CAD, IA Respiratory: Reports: None GI: Reports: None : Reports: None OBGYN: Reports: Musculoskeletal: Reports: None Neurological: Reports: CVA Psychiatric: Reports: None Endocrine/Metabolic: Reports: Diabetes, type II Hematologic: Reports: None Immunologic: Reports: None Dermatologic: Reports: None Oncologic: Reports: Other (See Below) Other Oncologic Family History: unknown familal cancer - Caffeine Use Caffeine Use: Reports: Coffee ED ROS GENERAL - Review of Systems Review Of Systems: Unable To Obtain Reason Not Obtained: Code Blue ED EXAM, GENERAL - Physical Exam Exam: Not Obtained Reason Not Obtained: See HPI/initial vital signs. Code terminated. Departure - Departure Time of Disposition: 16:33 Disposition: 20 Preliminary Cause of *Q: Cardiac Arrest Clinical Impression: Cardiac arrest due to underlying cardiac condition Forms: ED Department Discharge
== END 2021-09-20 19:15 | disposition expired ==
LOC: LL.ED 15:42
DX: I46.9 Cardiac arrest, cause unspecified (principal); I25.10 Atherosclerotic heart disease of native coronary artery without angina pectoris; I11.0 Hypertensive heart disease with heart failure; I50.9 Heart failure, unspecified; E78.00 Pure hypercholesterolemia, unspecified; E11.9 Type 2 diabetes mellitus without complications; J44.9 Chronic obstructive pulmonary disease, unspecified; Z95.1 Presence of aortocoronary bypass graft; Z79.899 Other long term (current) drug therapy; Z79.82 Long term (current) use of aspirin; Z79.4 Long term (current) use of insulin
CPT/HCPCS: 99283; 99285